=== PATIENT | male | born 1960 | race Caucasian/White ===

== ENCOUNTER 2024-11-15 09:05 | Inpatient (IN) ==
[2024-11-15] MEDS: SODIUM CHLORIDE 0.9% 1,000 ML IV SCH (09:47)
--- NOTE | 2024-11-15 09:51 | XRay Report ---
XR chest 1V portable CLINICAL HISTORY: Sepsis COMPARISON STUDY: None FINDINGS: There is cardiomegaly without pulmonary vascular congestion. Inspiration is shallow which l imits the exam. There is mild stranding in the lung bases. No other consolidation or pleural effusion seen. No pneumothorax. IMPRESSION: Likely mild lung base atelectasis. ACT 112: Negative or not required by law. Electronically signed by: Leonard Lozano M.D. 11/15/2024 9:50 AM
[2024-11-15] MEDS: ACETAMINOPHEN 1,000 MG/100 ML VIAL IV STA (09:55)
[2024-11-15] MEDS: SODIUM CHLORIDE 0.9% 1,000 ML IV ONE (09:55)
[2024-11-15 10:03] LABS: Hematocrit (blood only) 51.0 % (42.0-52.0); Hemoglobin 17.7 g/dl (14.0-18.0); Mean Corpuscular Hemoglobin 28.5 pg (25.0-34.0); Mean Corpuscular Volume 82.3 fL (80.0-100.0); Platelet Count 352 K/uL (130-400); RDW Standard Deviation 37.2 fL (36.4-46.3); Red Blood Count 6.20 M/uL (4.70-6.10); White Blood Count 8.16 K/ul (4.8-10.8)
[2024-11-15 10:09] LABS: Alanine Aminotransferase 83.0 U/L (7-52); Albumin Level 4.1 gm/dl (3.4-5.0); Alkaline Phosphatase 43.0 U/L (34-104); Blood Urea Nitrogen 58.0 mg/dl (6-23); Calcium 9.8 mg/dl (8.6-10.3); Carbon Dioxide 27.0 mmol/L (21-32); Chloride 77.0 mmol/L (98-107); Creatinine Clr Calc Pharmacy 13.9 ml/min; Glucose 201.0 mg/dl (70-99(Fasting)); Potassium 4.0 mmol/L (3.5-5.1)
[2024-11-15 10:14] LABS: Sodium 132.0 mmol/L (136-145)
[2024-11-15 10:15] LABS: Anion Gap 28.0 (3-11); Magnesium 2.1 mg/dl (1.7-2.4)
[2024-11-15 10:21] LABS: INR 1.3 (0.9-1.1); Partial Thromboplastin Time 29 Seconds (21-31); Prothrombin Time 13.5 Seconds (9.0-12.0)
[2024-11-15 10:22] LABS: Bilirubin,Total 2.8 mg/dl (0.2-1.0)
[2024-11-15 10:27] LABS: Total Protein 8.0 gm/dl (6.0-8.3)
[2024-11-15 10:33] LABS: ALC (manual) 2.94 K/uL (1.2-3.4); ANC (manual) 4.90 K/uL (1.4-6.5); Large Granular Lymph # (manua 1.80 K/uL; Large Granular Lymph % (manual) 22 %; Toxic Granulation 1+; Toxic Vacuolation 1+
[2024-11-15] MEDS: CEFEPIME 2000MG 2,000 MG/20 ML SYR IV STA (10:36)
[2024-11-15 10:43] LABS: Base Excess VBG 5.0 mEq/L; HCO3 VBG 30 mmol/L; Oxygen Saturation VBG 73.0 %; PCO2 VBG 44 mmHg (38-50); PO2 VBG 45 mmHg; pH VBG 7.44 (7.36-7.41)
[2024-11-15 10:43] LABS: Chlamydia pneumoniae PCR Not Detected (NotDetected); Coronavirus 229E PCR Not Detected (NotDetected); Coronavirus CoV-2 (COVID19)PCR Not Detected (NotDetected); Coronavirus HKU1 PCR Not Detected (NotDetected); Coronavirus NL63 PCR Not Detected (NotDetected); Coronavirus OC43PCR Not Detected (NotDetected); Human Metapneumovirus PCR Not Detected (NotDetected); Parainfluenza Virus 1 PCR Not Detected (NotDetected); Parainfluenza Virus 2 PCR Not Detected (NotDetected); Parainfluenza Virus 3 PCR Not Detected (NotDetected); Parainfluenza Virus 4 PCR Not Detected (NotDetected); Respiratory Syncytial VirusPCR Not Detected (NotDetected); Rhinovirus/Enterovirus PCR Not Detected (NotDetected)
--- NOTE | 2024-11-15 10:51 | CT Scan Report ---
CT head/brain wo con CLINICAL HISTORY: ams. TECHNIQUE: Multiple axial CT images of the head were obtained without contrast. A dose lowering tech nique was utilized adhering to the principles of ALARA. COMPARISON: None FINDINGS: There is mild motion artifact. No intracranial hemorrhage seen. No mass effect, midline lyn ft, or hydrocephalus. There are mild chronic small vessel ischemic changes. No skull fracture seen. IMPRESSION: No acute findings. ACT 112: Negative or not required by law. The above report was generated using voice recognition software. It may contain grammatical, syntax o r spelling errors. Electronically signed by: Leonard Lozano M.D. 11/15/2024 10:50 AM
--- NOTE | 2024-11-15 10:51 | CT Scan Report ---
ABDOMEN AND PELVIS CT WITHOUT CONTRAST CT DOSE: 2429.67 mGy.cm HISTORY: uti flank pain TECHNIQUE: Multiaxial CT images of the abdomen and pelvis were performed without contrast. A dose lo wering technique was utilized adhering to the principles of ALARA. COMPARISON STUDY: None FINDINGS: There is reticular and patchy opacity in the lower lobes which could represent pneumonia or atelectasis. ABDOMEN: Liver, gallbladder, spleen, pancreas, and adrenal glands have an unremarkable noncontrast ap pearance. Kidneys show no hydronephrosis or calculi. There are mild atherosclerotic calcifications. N o abdominal aortic aneurysm. There is severe distention of the stomach with retained fluid and food. There is distention of the du odenum, and jejunum measuring up to 5 cm diameter. At the transition zone to normal caliber small bow el at the lateral right mid abdomen series 9 Image 256 at the distal jejunum/proximal ileum there is a 2.4 cm intraluminal calcification. Small bowel is decompressed beyond that point. Pelvis: There is no colonic distention. There is sigmoid diverticulosis without evidence of acute div erticulitis. Normal appendix. There is trace scattered free fluid. No free air, or abscess. No enlarg ed adenopathy. Dugan catheter is present and the urinary bladder is nondistended. There is increased density within the urinary bladder suggesting clot. Prostate is enlarged. Osseous structures: There is mild lumbar degenerative disc disease. There are mild degenerative malagon es at the hips. IMPRESSION: 1. Small bowel obstruction caused by an intraluminal calcification at the distal jejunum/proximal ile um. 2. Pneumonia versus atelectasis at the lung bases. 3. Otherwise as described. ACT 112: Negative or not required by law. The above report was generated using voice recognition software. It may contain grammatical, syntax o r spelling errors. Electronically signed by: Leonard Lozano M.D. 11/15/2024 10:50 AM
--- NOTE | 2024-11-15 11:34 | Surgery Consultation ---
Date of Consultation November 15, 2024 Assessment & Plan (1) Small bowel obstruction: Patient is a 64-year-old male with a PMH significant for Autism (mostly nonverbal), undifferentiated schizophrenia, Pica, seizure disorder, and CKD3 who presented to the emergency department with his caregiver who provides patient history. Over the last few days the patient has seemed more confused, not feeling well, dark urine, and has had some abdominal pain and vomiting. Recently seen at urgent care yesterday and was treated for a UTI with antibiotics. Patient continued with symptoms and presented to the emergency department where he was tachycardic, febrile, and found to have worsening kidney function and lactic acidosis and CT findings of a SBO. Although difficult to obtain history/physical from the patient, on exam he does appear to be uncomfortable with palpation throughout his abdomen. His abdomen is firm and significantly distended as well. Discussed case in detail with attending surgeon, Dr. Stewart, and from a surgical standpoint recommend the following: -Given patient's clinical exam, imaging, and lab findings there is concern for possible bowel ischemia. Will plan to take patient emergently to the operating theater for exploratory laparotomy, possible bowel resection, and all other indicated procedures. Will obtain consent from patient's caregiver who is at bedside. -Keep NPO, aggressive IV hydration, and will have ED attempt to place an NGT prior to OR if possible. -Will also order pre-op antibiotics with Zosyn -Further surgical recommendation to follow postoperatively Supervising Physician Co-Signing Physician Notes I independently saw and examined the patient, and I agree with the findings and plan of care. 2 physician consent was obtained due to urgent situation of patient. Risks of procedure include bleeding, infection, injury to surrounding structures, need for further procedures, and cardiopulmonary events that can occur. Alternatives include no surgery, which the housekeeper child care declines. Plan w ill be for surgical intervention. All questions were answered. History of Present Illness Reason for Consultation: SBO History of Present Illness Patient is a 64-year-old male with a PMH significant for Autism (mostly nonverbal), undifferentiated schizophrenia, Pica, seizure disorder, and CKD3 who presented to the emergency department with his caregiver who provides patient history. Patient's housekeeper child care states that over the last few days he has seemed more confused, not feeling well, dark urine, and has had some abdominal pain and vomiting. The caregiver states that his symptoms started roughly 3 days ago, however did seem to imrpove somewhat until his symptoms returned which prompted her to go to urgent care yesterday. He was seen and evaluated yesterday morning and was treated for a UTI. However, overnight the patient continued to have episodes of vomiting and started to run a fever and his caregiver brought him to the emergency room this morning for further evaluation. Upon workup, the patient was tachycardic with HR in the 100s, SBP in the low 100s, temp of 38.1, and requiring supplemental O2. Patient's lab work also concerning for elevated lactic acid level of 10.7 (repeat still elevated at 4.3) and Cr 5.1 (baseline appears to be around 1.0-1.1). The patient's CT revealed an SBO and at that time the surgical team was consulted for further evaluation. The patient was seen and evaluated at bedside this morning. Patient's abdomen is distended, firm, and he does appear uncomfortable. No additional episodes of vomiting since arrival to the ED. Patient's caregiver states that he has no previous abdominal surgeries that she is aware of. He does not take any anticoagulation medications. Allergies Allergy/AdvReac Type Severity Reaction Status Date / Time No Known Allergies Allergy Verified 11/14/24 09:50 Home Medications Medication Instructions Recorded Confirmed Type fenofibrate 160 mg tablet 160 mg PO QAM #90 tabs 04/06/24 11/15/24 Rx diaper,brief,adult,disposable #100 ea 04/17/24 11/14/24 Rx mirtazapine 45 mg tablet 45 mg PO HS #90 tabs 04/29/24 11/15/24 Rx multivitamin-iron 9 mg-folic acid 1 tab PO QAM #90 tabs 04/29/24 11/15/24 Rx 400 mcg-calcium and minerals tablet risperidone 0.25 mg tablet 0.25 mg PO QAM Schizophrenia #90 05/21/24 11/15/24 Rx tabs hydroxyzine pamoate 50 mg capsule 50 mg PO TID #270 caps 05/25/24 11/15/24 Rx risperidone 1 mg tablet (Risperdal) 1 mg PO HS #90 tabs 05/25/24 11/15/24 Rx famotidine 40 mg tablet 40 mg PO QAM GERD #90 tabs 06/15/24 11/15/24 Rx sertraline 50 mg tablet 50 mg PO QAM #90 tabs 06/16/24 11/15/24 Rx phenytoin sodium extended 100 mg 200 mg (2 x 100 mg) PO BID 06/25/24 11/15/24 Rx capsule EPILEPSY #360 caps propranolol 20 mg tablet 20 mg PO TID Epilepsy #270 tabs 09/08/24 11/15/24 Rx clonazepam 1 mg tablet 1 mg PO QID #112 tabs 10/16/24 11/15/24 Rx levothyroxine 50 mcg tablet 50 mcg PO QAM Hypothyroid #90 tabs 10/16/24 11/15/24 Rx (Synthroid) cholecalciferol (vitamin D3) 50 50 mcg PO DAILY #90 caps 10/29/24 11/15/24 Rx mcg (2,000 unit) capsule cephalexin 500 mg capsule 500 mg PO TID 7 days #21 caps 11/14/24 11/15/24 Rx Patient History Medical History Undifferentiated schizophrenia Autism per caregiver "he is mostly non-verbal, except for simple words and phrases" History of rubella remote hx Gastritis hx History of pica Surgical History History of cataract surgery right Hx of tooth extraction Family History Denies family history of Ovarian cancer Prostate cancer Myocardial infarction Breast cancer Colorectal cancer Social History Smoking Status: Never smoker Second Hand Exposure: No; Do You Dip or Chew Tobacco: No; Hx Alcohol Use: No Hx Substance Use: No Preferred Language: Icelandic Communication Ability: Effective Communication Ability Comment: pt is "mostly non-verbal except for simple words and phrases" Drivers' Cash Clerk Required: No Beliefs That Will Affect Care: None Current Living Situation: Other Current Living Situation Comment: lives with caregiver current occupational status: disabled Feels Safe at Home: Yes Childhood Exposure to Second-Hand Smoke: No Diet: regular caffeine: Yes Dental Care, Regularly: Yes Physical Activity Frequency: Daily Physical Activity Frequency Comment: Walking Seatbelt Use: always Sunscreen Use: Yes Assistive Devices: None Review of Systems Review of Systems: All systems reviewed & are unremarkable except as noted in HPI & below Physical Exam Constitutional: + ill appearing and + diaphoretic; no ac [place] distress Pt with Autism and mostly nonverbal Respiratory: normal respiratory effort; no respiratory distress Requiring supplemental O2 via oxymask, good saturations. Cardiovascular: Rate/Rhythm: + tachycardic Gastrointestinal (Abdomen): Abdomen distended, firm, and patient appears to be tender with palpation throughout all 4 quadrants. Skin: no rashes, warm and dry Results & Data Vital Signs (Past 12 Hours) Vital Signs Temp Pulse Pulse Resp BP BP Pulse Ox 11/15/24 11:15 38.2 C H 99 H 37 H 92 11/15/24 11:15 113/86 11/15/24 11:03 38.3 C H 100 H 33 H 94 11/15/24 11:00 104/83 11/15/24 11:00 104/83 11/15/24 11:00 104/83 11/15/24 10:57 38.3 C H 102 H 39 H 92 11/15/24 10:54 38.3 C H 103 H 37 H 92 11/15/24 10:45 98/77 L 11/15/24 10:40 38.3 C H 106 H 38 H 107/81 94 11/15/24 10:31 95 11/15/24 10:27 38.2 C H 104 H 39 H 89 L 11/15/24 10:25 109/81 11/15/24 10:25 109/81 11/15/24 10:16 92 11/15/24 10:12 37.8 C H 108 H 36 H 90 11/15/24 10:11 109 H 11/15/24 09:50 106/85 11/15/24 09:48 114 H 43 H 91 11/15/24 09:45 110/88 11/15/24 09:37 82 L 11/15/24 09:27 123 H 34 H 117/85 11/15/24 09:25 38.6 C H 125 H 45 H 117/85 82 L 11/15/24 09:11 24 O2 Del Method O2 Flow Rate 11/15/24 11:15 Oxymask 11/15/24 11:15 11/15/24 11:03 Oxymask 11/15/24 11:00 11/15/24 11:00 11/15/24 11:00 11/15/24 10:57 11/15/24 10:54 11/15/24 10:45 11/15/24 10:40 Oxymask 12 11/15/24 10:31 Oxymask 12 11/15/24 10:27 11 11/15/24 10:25 11/15/24 10:25 11/15/24 10:16 Oxymask 11 11/15/24 10:12 Oxymask 11 11/15/24 10:11 11/15/24 09:50 11/15/24 09:48 Oxymask 10 11/15/24 09:45 11/15/24 09:37 Oxymask 11/15/24 09:27 Room Air 11/15/24 09:25 Room Air 11/15/24 09:11 Diagnostic Findings ABDOMEN AND PELVIS CT WITHOUT CONTRAST CT DOSE: 2429.67 mGy.cm HISTORY: uti flank pain TECHNIQUE: Multiaxial CT images of the abdomen and pelvis were performed without contrast. A dose lowering technique was utilized adhering to the principles of ALARA. COMPARISON STUDY: None FINDINGS: There is reticular and patchy opacity in the lower lobes which could represent pneumonia or atelectasis. ABDOMEN: Liver, gallbladder, spleen, pancreas, and adrenal glands have an unremarkable noncontrast appearance. Kidneys show no hydronephrosis or calculi. There are mild atherosclerotic calcifications. No abdominal aortic aneurysm. There is severe distention of the stomach with retained fluid and food. There is distention of the duodenum, and jejunum measuring up to 5 cm diameter. At the transition zone to normal caliber small bowel at the lateral right mid abdomen series 9 Image 256 at the distal jejunum/proximal ileum there is a 2.4 cm intraluminal calcification. Small bowel is decompressed beyond that point. Pelvis: There is no colonic distention. There is sigmoid diverticulosis without evidence of acute diverticulitis. Normal appendix. There is trace scattered free fluid. No free air, or abscess. No enlarged adenopathy. Dugan catheter is presen t and the urinary bladder is nondistended. There is increased density within the urinary bladder suggesting clot. Prostate is enlarged. Osseous structures: There is mild lumbar degenerative disc disease. There are mild degenerative changes at the hips. IMPRESSION: 1. Small bowel obstruction caused by an intraluminal calcification at the distal jejunum/proximal ileum. 2. Pneumonia versus atelectasis at the lung bases. 3. Otherwise as described. PG Care Time/CCT Total # of Minutes Spent Total Time Spent with Patient: Total time spent is greater than 50% in coordination of care (as documented) at patient's floor/unit and/or counseling patient: [place] [address] INT INP/OBS CARE 1/40MIN Patient Type New Medical Decision Making Straight Forward Diagnoses Small bowel obstruction K56.609
--- NOTE | 2024-11-15 12:35 | Anesthesiology Consultation ---
Date of Service November 15, 2024 Assessment & Plan Chart Review Chart Review: Acceptable Risk for Surgery and Patient NOT seen in Pre Admission Testing Consults Requested none ASA [id number] Proposed Anesthesia Anesthesia Type: General Anesthesia Line Insertion: Arterial line History Surgery Operation Date: 11/15/24 12:45 Proposed Procedures p Exploratory Laparotomy - Wesley Stewart MD Height/Weight Height: 5 ft 5 in Weight: 76.4 kg Allergies Allergy/AdvReac Type Severity Reaction Status Date / Time No Known Allergies Allergy Verified 11/14/24 09:50 Medications Home Medications Medication Instructions Recorded Confirmed Last Taken fenofibrate 160 mg tablet 160 mg PO QAM #90 tabs 04/06/24 11/15/24 Unknown diaper,brief,adult,disposable #100 ea 04/17/24 11/14/24 Unknown mirtazapine 45 mg tablet 45 mg PO HS #90 tabs 04/29/24 11/15/24 Unknown multivitamin-iron 9 mg-folic acid 1 tab PO QAM #90 tabs 04/29/24 11/15/24 Unknown 400 mcg-calcium and minerals tablet risperidone 0.25 mg tablet 0.25 mg PO QAM Schizophrenia #90 05/21/24 11/15/24 Unknown tabs hydroxyzine pamoate 50 mg capsule 50 mg PO TID #270 caps 05/25/24 11/15/24 Unknown risperidone 1 mg tablet (Risperdal) 1 mg PO HS #90 tabs 05/25/24 11/15/24 Unknown famotidine 40 mg tablet 40 mg PO QAM GERD #90 tabs 06/15/24 11/15/24 Unknown sertraline 50 mg tablet 50 mg PO QAM #90 tabs 06/16/24 11/15/24 Unknown phenytoin sodium extended 100 mg 200 mg (2 x 100 mg) PO BID 06/25/24 11/15/24 Unknown capsule EPILEPSY #360 caps propranolol 20 mg tablet 20 mg PO TID Epilepsy #270 tabs 09/08/24 11/15/24 Unknown clonazepam 1 mg tablet 1 mg PO QID #112 tabs 10/16/24 11/15/24 Unknown levothyroxine 50 mcg tablet 50 mcg PO QAM Hypothyroid #90 tabs 10/16/24 11/15/24 Unknown (Synthroid) cholecalciferol (vitamin D3) 50 50 mcg PO DAILY #90 caps 10/29/24 11/15/24 Unknown mcg (2,000 unit) capsule cephalexin 500 mg capsule 500 mg PO TID 7 days #21 caps 11/14/24 11/15/24 Unknown Past Medical History Medical History Undifferentiated schizophrenia Autism per caregiver "he is mostly non-verbal, except for simple words and phrases" History of rubella remote hx Gastritis hx History of pica SBO Volume depleted electrolyte disturbance Hx/o seizures ROQUE on CKD Hypochloremia Exercise / Class Metabolic Activity III < 4 Walking/Shop/Light housework Past Family History Family History Denies family history of Ovarian cancer Prostate cancer Myocardial infarction Breast cancer Colorectal cancer Past Surgical History Surgical History History of cataract surgery right Hx of tooth extraction Past Anesthesia History No Hx of Anesthesia Complications and No Family Hx of Anesthesia Complications History of PONV No Hx of PONV and No Hx of Motion Sickness Social History Smoking Status: Never smoker Do You Dip or Chew Tobacco: No Hx Alcohol Use: No Hx Substance Use: No substance use type: does not use Physical Exam Vital Signs Last Vital Signs Temp 38.1 C H 11/15/24 12:12 Pulse 103 H 11/15/24 12:12 Resp 33 H 11/15/24 12:12 BP 103/83 11/15/24 12:15 Pulse Ox 91 11/15/24 12:09 O2 Del Method Oxymask 11/15/24 12:09 O2 Flow Rate 10 11/15/24 12:09 Testing Laboratory Results 11/15/24 09:32 11/15/24 09:32 PT 13.5 Seconds (9.0-12.0) H 11/15/24 09:32 INR 1.3 (0.9-1.1) H 11/15/24 09:32 APTT 29 Seconds (21-31) 11/15/24 09:32 11/15/24 09:39 POC Glucose (other) 199 H Chest X-Ray Date: 11/15/24 Findings: + atelectasis and + cardiomegaly
--- NOTE | 2024-11-15 12:39 | XRay Report ---
KUB HISTORY: ng placement COMPARISON STUDY: CT earlier today FINDINGS: Nasogastric tube tip is in the distal body of the stomach. There is stable severe gastric a nd upper abdominal small bowel distention. IMPRESSION: Nasogastric tube tip is in the distal body of the stomach. ACT 112: Negative or not required by law. The above report was generated using voice recognition software. It may contain grammatical, syntax o r spelling errors. Electronically signed by: Leonard Lozano M.D. 11/15/2024 12:38 PM
[2024-11-15] MEDS ORDERED: ETOMIDATE 2 MG/ML 20 ML VIAL IV ONE (12:58)
[2024-11-15] MEDS ORDERED: MIDAZOLAM HCL 1 MG/ML 2ML VIAL ONE (12:59)
[2024-11-15] MEDS ORDERED: CISATRACURIUM BESYLATE IV SOLN 2 MG/ML 10 ML VIAL IV ONE (12:59)
--- NOTE | 2024-11-15 13:17 | History & Physical Bridge Note ---
Date of Service November 15, 2024 History & Physical Bridge Note I have examined the patient, reviewed the History & Physical and in the interval since the performance of the History & Physical I have noted the following changes of clinical significance: no changes noted Supervising Physician Co-Signing Physician Notes I independently saw and examined the patient, and I agree with the findings and plan of care. 2 physician consent was obtained due to urgent situation of patient. Risks of procedure include bleeding, infection, injury to surrounding structures, need for further procedures, and cardiopulmonary events that can oc cur. Alternatives include no surgery, which the respiratory care faculty declines. Plan will be for surgical intervention. All questions were answered.
[2024-11-15] MEDS ORDERED: PHENYLEPHRINE HCL 10 MG/ML VIAL ONE (13:26)
[2024-11-15] MEDS ORDERED: NOREPINEPHRINE BITARTRATE 1 MG/ML 4 ML VIAL IV ONE (13:26)
--- NOTE | 2024-11-15 13:49 | History & Physical Report ---
Date of Service November 15, 2024 Assessment & Plan (1) Small bowel obstruction: (2) Urinary symptom or sign: (3) Sepsis: (4) Hypoxia: (5) ROQUE (acute kidney injury): (6) Elevated troponin: (7) Elevated LFTs: (8) Seizures: Plan Pt is a 64 yo male with with PMH of autism, schizophrenia, seizure disorder, hypothyroidism, HLD, GERD and CKD who presented to ED with persistent vomiting in setting of fever, tachycardia, hypoxia, elevated lactate and procal and significantly distended abdomen. CT abdomen was consistent with SBO. Chest XR favors atelectasis due to abdominal distension. Pt received 2L NSS and given supplemental O2 via oxymask. BPs have been stable, Surgery consult with concern for bowel ischemia and took pt for emergent exploratory surgery. Pt remained intubated follow surgery was was admitted to ICU. #SBO/foreign obstruction Significantly enlarged stomach and duodenum noted in CT with calcification noted at distal duodenum. Pt underwent emergent exploratory surgery. Surgery recs: Remain NPO Continue NGT to suction Continue IV Zosyn Ordered repeat lactic acid #UTI/other infection/fever Elevated lactate 10.4 -> 4.3. Blood cultures taken. S/p IVF and dose of IV cefepime in ED. Switched to Zosyn per general surgery. - Continue IV Zosyn - Ordered MRSA nares - Continued IVF - Follow blood cx #Hypoxia Imaging suggests atelectasis vs pneumonia. No supplemental O2 used at home. Using Oxymask at 10L to maintain sats>90%. Intubated and on vent s/p surgery. - ICU to manage vent settings #ROQUE in setting CKD Baseline Cr is 1.2. Presenting with likely pre-renal ROQUE due to severe dehydration and volume depletion from SBO. Potassium is currently stable. Lactate is improving from 10.7->4.3. - Continue IVF at maintenance plus - Monitor kidney function with CMP If become hyperkalemic or acidotic, will consider as needed dialysis #Elevated troponin 65--> 99.8. Likely demand ischemia - Continue to trend troponin q6h until plateau - Order echo to rule out cardiac dysfunction #Elevated LFTs/INR Likely caused from ischemia secondary to severe dehydration and volume depletion/decreased nutrition - Monitor with CMP, INR - Consider Vit K supplementation if INR does not resolve in 24-48 hours #Hx of seizures Taking oral meds for seizure control at home. While NPO will convert to IV antiseizure meds - Start IV phenytoin 100mg QID Chronic conditions: Hypothyroidism- hold levothyroxine until able to take po meds GERD- IV pantoprazole 40mg qd Mood disorder- Hold sertraline, mirtazapine, and risperidone while NPO. Consider Ativan 1mg IV as needed for agitation Dispo: ICU Diet:NPO DVT prophylaxis: Lovenox Code: Full History of Present Illness Chief Complaint: Intractable vomiting, fever Primary Care Provider: Katherine Walls MD Pt is a 64 yo male with with PMH of autism, schizophrenia, seizure disorder, hypothyroidism, HLD, GERD and CKD who presented to ED to 4 day history of vomiting presents with his caregiver, Kai. Pt is relatively nonverbal, and history is obtained from caregiver. She reports pt started with vomiting on 11/12. Pt continued to eat as normal, however, caregivers tried to adjust his diet to be more of a BRAT diet. Pt continued with green emesis and started to notes dark urine and increased abdominal discomfort. He was taken to urgent care and found to have a UTI. Pt was started on oral antibiotics and caregivers were instructed to watch out for fever. Pt started with diaphoresis and shaking this morning. Attempted to take pt's temperature, but it did not register as fever. Caregiver decided to bring pt to ED. Pt takes himself to bathroom for bowel movements, but does not perform toileting hygiene very well. He uses adult briefs, which reportedly had BM stain yesterday. Unknown if patient has had BM since then. Caregiver denies signs of bloody stool or rich rectal bleeding. Caregiver denies recent cough, congestion, SOB, diarrhea, open wounds, or rashes. No known allergies. Allergies Allergy/AdvReac Type Severity Reaction Status Date / Time No Known Allergies Allergy Verified 11/14/24 09:50 Home Medications Medication Instructions Recorded Confirmed Type fenofibrate 160 mg tablet 160 mg PO QAM #90 tabs 04/06/24 11/15/24 Rx diaper,brief,adult,disposable #100 ea 04/17/24 11/14/24 Rx mirtazapine 45 mg tablet 45 mg PO HS #90 tabs 04/29/24 11/15/24 Rx multivitamin-iron 9 mg-folic acid 1 tab PO QAM #90 tabs 04/29/24 11/15/24 Rx 400 mcg-calcium and minerals tablet risperidone 0.25 mg tablet 0.25 mg PO QAM Schizophrenia #90 05/21/24 11/15/24 Rx tabs hydroxyzine pamoate 50 mg capsule 50 mg PO TID #270 caps 05/25/24 11/15/24 Rx risperidone 1 mg tablet (Risperdal) 1 mg PO HS #90 tabs 05/25/24 11/15/24 Rx famotidine 40 mg tablet 40 mg PO QAM GERD #90 tabs 06/15/24 11/15/24 Rx sertraline 50 mg tablet 50 mg PO QAM #90 tabs 06/16/24 11/15/24 Rx phenytoin sodium extended 100 mg 200 mg (2 x 100 mg) PO BID 06/25/24 11/15/24 Rx capsule EPILEPSY #360 caps propranolol 20 mg tablet 20 mg PO TID Epilepsy #270 tabs 09/08/24 11/15/24 Rx clonazepam 1 mg tablet 1 mg PO QID #112 tabs 10/16/24 11/15/24 Rx levothyroxine 50 mcg tablet 50 mcg PO QAM Hypothyroid #90 tabs 10/16/24 11/15/24 Rx (Synthroid) cholecalciferol (vitamin D3) 50 50 mcg PO DAILY #90 caps 10/29/24 11/15/24 Rx mcg (2,000 unit) capsule cephalexin 500 mg capsule 500 mg PO TID 7 days #21 caps 11/14/24 11/15/24 Rx Past Med/Surg History Problem List (Updated 11/15/24 @ 14:32 by Juliane Matias DO) Seizures Elevated LFTs Elevated troponin ROQUE (acute kidney injury) Hypoxia Sepsis Small bowel obstruction Urinary symptom or sign Tick bite of right elbow Eye abnormality Encounter for immunization Complicated grieving Encounter for pre-operative examination Seizure disorder Routine health maintenance Abnormal thyroid function test Intellectual disability Diverticulosis Mood disorder NEENA (generalized anxiety disorder) (Chronic) Chronic kidney disease (Chronic) Stage 3 Hyperlipidemia (Chronic) Echolalia Undifferentiated schizophrenia (Chronic) Autism (Chronic) Hypothyroidism (acquired) Seizure last seizure over 1 year ago "more mild only last for a few seconds"; currently on phenytoin GERD (gastroesophageal reflux disease) (Chronic) Medical History Undifferentiated schizophrenia Autism per caregiver "he is mostly non-verbal, except for simple words and phrases" History of rubella remote hx Gastritis hx History of pica Surgical History History of cataract surgery right Hx of tooth extraction Family History Denies family history of Ovarian cancer Prostate cancer Myocardial infarction Breast cancer Colorectal cancer Social History Smoking Status: Unknown if ever smoked Second Hand Exposure: No; Do You Dip or Chew Tobacco: No; Hx Alcohol Use: No (unknown) Hx Substance Use: No (unknown) Preferred Language: Turkmen Communication Ability: Effective Communication Ability Comment: Pt sedated/intubated Hotel And Dining Room Cashier Required: No Beliefs That Will Affect Care: None Current Living Situation: Other Current Living Situation Comment: [facility] current occupational status: disabled Feels Safe at Home: Yes Childhood Exposure to Second-Hand Smoke: No Diet: regular caffeine: Yes Dental Care, Regularly: Yes Physical Activity Frequency: Daily Physical Activity Frequency Comment: Walking Seatbelt Use: always Sunscreen Use: Yes Assistive Devices: None Review of Systems Review of Systems: As per HPI Physical Exam Physical Exam: Gen: Laying in david, appears in discomfort, but does not verbalize pain HENT: Normocephalic, atraumatic. External ear without deformities. Trachea midline, no thyromegaly Cardio: RRR, tachycardiac, no murmurs or clicks. Resp: Oxymask at 10L, CTAB, tachypnea, Equal bilateral chest rise. GI: Distended, firm, tender, unable to note bowel sounds MSK: Moving all 4 extremities independently Skin: Dry, of normal skin tone, 1-2 cm scab noted at right anterior knee Neuro: Alert and oriented to self. Pt with mild groaning with palpation over abdomen. Results & Data Results & Data Vital Signs (Past 12 Hours) Vital Signs Temp Pulse Pulse Resp BP BP Pulse Ox 11/15/24 12:30 110/80 11/15/24 12:30 38.2 C H 109 H 39 H 90 11/15/24 12:15 103/83 11/15/24 12:15 103/83 11/15/24 12:12 38.1 C H 103 H 33 H 11/15/24 12:09 38.1 C H 104 H 41 H 91 11/15/24 12:00 111/88 11/15/24 11:57 38.1 C H 103 H 40 H 91 11/15/24 11:45 108/84 11/15/24 11:45 38.1 C H 102 H 39 H 92 11/15/24 11:33 38.1 C H 100 H 37 H 91 11/15/24 11:30 106/85 11/15/24 11:21 38.1 C H 97 H 37 H 91 11/15/24 11:15 38.2 C H 99 H 37 H 92 11/15/24 11:15 113/86 11/15/24 11:03 38.3 C H 100 H 33 H 94 11/15/24 11:00 104/83 11/15/24 11:00 104/83 11/15/24 11:00 104/83 11/15/24 10:57 38.3 C H 102 H 39 H 92 11/15/24 10:54 38.3 C H 103 H 37 H 92 11/15/24 10:45 98/77 L 11/15/24 10:40 38.3 C H 106 H 38 H 107/81 94 11/15/24 10:31 95 11/15/24 10:27 38.2 C H 104 H 39 H 89 L 11/15/24 10:25 109/81 11/15/24 10:25 109/81 11/15/24 10:16 92 11/15/24 10:12 37.8 C H 108 H 36 H 90 11/15/24 10:11 109 H 11/15/24 09:50 106/85 11/15/24 09:48 114 H 43 H 91 11/15/24 09:45 110/88 11/15/24 09:37 82 L 11/15/24 09:27 123 H 34 H 117/85 11/15/24 09:25 38.6 C H 125 H 45 H 117/85 82 L 11/15/24 09:11 24 O2 Del Method O2 Flow Rate 11/15/24 12:30 11/15/24 12:30 Oxymask 10 11/15/24 12:15 11/15/24 12:15 11/15/24 12:12 11/15/24 12:09 Oxymask 10 11/15/24 12:00 11/15/24 11:57 11/15/24 11:45 11/15/24 11:45 11/15/24 11:33 Oxymask 10 11/15/24 11:30 11/15/24 11:21 Oxymask 12 11/15/24 11:15 Oxymask 11/15/24 11:15 11/15/24 11:03 Oxymask 11/15/24 11:00 11/15/24 11:00 11/15/24 11:00 11/15/24 10:57 11/15/24 10:54 11/15/24 10:45 11/15/24 10:40 Oxymask 12 11/15/24 10:31 Oxymask 12 11/15/24 10:27 11 11/15/24 10:25 11/15/24 10:25 11/15/24 10:16 Oxymask 11 11/15/24 10:12 Oxymask 11 11/15/24 10:11 11/15/24 09:50 11/15/24 09:48 Oxymask 10 11/15/24 09:45 11/15/24 09:37 Oxymask 11/15/24 09:27 Room Air 11/15/24 09:25 Room Air 11/15/24 09:11 Laboratory Results Abnormal lab results 11/15/24 11/15/24 11/15/24 Range/Units 09:32 09:39 10:36 RBC 6.20 H (4.70-6.10) M/uL POC Hct 53 H (42-52) % Lymphocytes # (Manual) 1.14 L (1.2-3.4) K/uL Monocytes # (Manual) 0.08 L (0.11-0.59) K/uL Metamyelocytes # (Man) 0.24 H (0-0) K/uL PT 13.5 H (9.0-12.0) Seconds INR 1.3 H (0.9-1.1) VBG pH 7.44 H (7.36-7.41) POC Sodium 130 L (135-144) mmol/L Sodium 132 L (136-145) mmol/L POC Potassium 3.2 L (3.3-5.0) mmol/L POC Chloride 86 L (101-112) mmol/L Chloride 77 L (98-107) mmol/L Anion Gap 28 H (3-11) POC BUN 58 H (7-18) mg/dl BUN 58 H (6-23) mg/dl Creatinine 5.18 H* (0.6-1.4) mg/dl POC Creatinine 5.4 H* (0.6-1.3) mg/dl Glucose 201 H (70-99(Fasting)) mg/dl POC Glucose (other) 199 H (70-99) mg/dl Lactate 10.7 H* (0.4-2.0) mmol/L POC Ioniz Calcium Marissa 0.91 L (1.12-1.32) mmol/l Total Bilirubin 2.8 H (0.2-1.0) mg/dl Direct Bilirubin 1.6 H (0-0.2) mg/dl AST 94 H (13-39) U/L ALT 83 H (7-52) U/L Troponin I High Sens 65.0 H* (0-20) pg/ml Procalcitonin 15.40 H (0-0.5) ng/ml 11/15/24 Range/Units 11:35 RBC (4.70-6.10) M/uL POC Hct (42-52) % Lymphocytes # (Manual) (1.2-3.4) K/uL Monocytes # (Manual) (0.11-0.59) K/uL Metamyelocytes # (Man) (0-0) K/uL PT (9.0-12.0) Seconds INR (0.9-1.1) VBG pH (7.36-7.41) POC Sodium (135-144) mmol/L Sodium (136-145) mmol/L POC Potassium (3.3-5.0) mmol/L POC Chloride (101-112) mmol/L Chloride (98-107) mmol/L Anion Gap (3-11) POC BUN (7-18) mg/dl BUN (6-23) mg/dl Creatinine (0.6-1.4) mg/dl POC Creatinine (0.6-1.3) mg/dl Glucose (70-99(Fasting)) mg/dl POC Glucose (other) (70-99) mg/dl Lactate 4.3 H* (0.4-2.0) mmol/L POC Ioniz Calcium Marissa (1.12-1.32) mmol/l Total Bilirubin (0.2-1.0) mg/dl Direct Bilirubin (0-0.2) mg/dl AST (13-39) U/L ALT (7-52) U/L Troponin I High Sens 99.8 H* D (0-20) pg/ml Procalcitonin (0-0.5) ng/ml Diagnostic Findings Chest X-Ray 11/15/24 09:35 XR chest 1V portable CLINICAL HISTORY: Sepsis COMPARISON STUDY: None FINDINGS: There is cardiomegaly without pulmonary vascular congestion. Inspiration is shallow which limits the exam. There is mild stranding in the lung bases. No other consolidation or pleural effusion seen. No pneumothorax. IMPRESSION: Likely mild lung base atelectasis. ACT 112: Negative or not required by law. Electronically signed by: Leonard Lozano M.D. 11/15/2024 9:50 AM Abdomen/Pelvis CT 11/15/24 09:[address] WITHOUT CONTRAST CT DOSE: 2429.67 mGy.cm HISTORY: uti flank pain TECHNIQUE: Multiaxial CT images of the abdomen and pelvis were performed without contrast. A dose lowering technique was utilized adhering to the principles of ALARA. COMPARISON STUDY: None FINDINGS: There is reticular and patchy opacity in the lower lobes which could represent pneumonia or atelectasis. ABDOMEN: Liver, gallbladder, spleen, pancreas, and adrenal glands have an unremarkable noncontrast appearance. Kidneys show no hydronephrosis or calculi. There are mild atherosclerotic calcifications. No abdominal aortic aneurysm. There is severe distention of the stomach with retained fluid and food. There is distention of the duodenum, and jejunum measuring up to 5 cm diameter. At the transition zone to normal caliber small bowel at the lateral right mid abdomen series 9 Image 256 at the distal jejunum/proximal ileum there is a 2.4 cm intraluminal calcification. Small bowel is decompressed beyond that point. Pelvis: There is no colonic distention. There is sigmoid diverticulosis without evidence of acute diverticulitis. Normal appendix. There is trace scattered free fluid. No free air, or abscess. No enlarged adenopathy. Dugan catheter is present and the urinary bladder is nondistended. There is increased density within the urinary bladder suggesting clot. Prostate is enlarged. Osseous structures: There is mild lumbar degenerative disc disease. There are mild degenerative changes at the hips. IMPRESSION: 1. Small bowel obstruction caused by an intraluminal calcification at the distal jejunum/proximal ileum. 2. Pneumonia versus atelectasis at the lung bases. 3. Otherwise as described. ACT 112: Negative or not required by law. The above report was generated using voice recognition software. It may contain grammatical, syntax or spelling errors. Electronically signed by: Leonard Lozano M.D. 11/15/2024 10:[address] 11/15/24 09:36 CT head/brain wo con CLINICAL HISTORY: ams. TECHNIQUE: Multiple axial CT images of the head were obtained without contrast. A dose lowering technique was utilized adhering to the principles of ALARA. COMPARISON: None FINDINGS: There is mild motion artifact. No intracranial hemorrhage seen. No mass effect, midline shift, or hydrocephalus. There are mild chronic small vessel ischemic changes. No skull fracture seen. IMPRESSION: No acute findings. ACT 112: Negative or not required by law. The above report was generated using voice recognition software. It may contain grammatical, syntax or spelling errors. Electronically signed by: Leonard Lozano M.D. 11/15/2024 10:50 AM KUB X-Ray 11/15/24 12:18 KUB HISTORY: ng placement COMPARISON STUDY: CT earlier today FINDINGS: Nasogastric tube tip is in the distal body of the stomach. There is stable severe gastric and upper abdominal small bowel distention. IMPRESSION: Nasogastric tube tip is in the distal body of the stomach. ACT 112: Negative or not required by law. The above report was generated using voice recognition software. It may contain grammatical, syntax or spelling errors. Electronically signed by: Leonard Lozano M.D. 11/15/2024 12:38 PM Supervising Physician Co-Signing Physician Notes I personally examined the patient and verified all [place] points of history and exam, discussed case, and agree with decision making with Dr Matias no HPI or ROS obtainable surgery input appreciated vitals noted intubated sedated in icu post op no distress, no pallor or icterus. vitals stable. labs and diagnostics noted SBO - rubber ball removed. continue post op care sepsis - likely from above, follow for other pathologies, continue broad abx, follow cx, serial exams. otherwise as above. Appreciate surgery and ICU input. Resident Activity Tracking Resident Involvement: Resident Care Provided Care Provided: Adult [facility]
[2024-11-15] MEDS: 4.5GM X1 IV STA (14:08)
[2024-11-15] MEDS ORDERED: DEXAMETHASONE SOD INJ 4 MG/ML VIAL ONE (14:35)
[2024-11-15] MEDS ORDERED: diphenhydrAMINE 50 MG/ML VIAL ONE (14:35)
[2024-11-15] MEDS: BUPIVACAINE 0.5 % 5 MG/1 ML MPF 30ML VIAL ONE (15:12)
[2024-11-15] MEDS: LIDOCAINE 1%/EPINEPHRINE 1:100,000 50 ML VIAL ONE ×2 (15:13→15:14)
--- NOTE | 2024-11-15 15:36 | Post Operative Brief Note ---
PG Immediate Post Op with CF Date of Surgery November 15, 2024 Pre & Post Diagnosis Operation Date: 11/15/24 12:45 Pre-Op Diagnosis: small bowel obstruction Post-Op Diagnosis: small bowel obstruction due to foreign body I identified the patient and participated in the time-out.: Yes Procedure Operation Date: 11/15/24 12:45 Actual Procedures p Exploratory Laparotomy, small bowel resection and anastamosis(Not Applicable) - Wesley Stewart MD Surgeon Wesley Stewart MD Hoisting Laborer Bernadette VARELAC Estimated Blood Loss 20 Findings Consistent with Post-Op Diagnosis Small bowel obstruction with hyperemic and edematous proximal small bowel, source of small bowel appeared to be foreign body ingestion, possibly a bouncy ball Specimens Specimen Description: A. Small bowel foreign body Drains Dugan Catheter Complications None Disposition Disposition: Surgical ICU
[2024-11-15] MEDS ORDERED: STAT IV Infusion **Titration per Protocol STA ×2 (15:59→16:01)
[2024-11-15] MEDS: fentaNYL citrate 2,500 MCG/250 ML BAG IV SCH (16:19)
[2024-11-15] MEDS: PROPOFOL BOLUS FROM BAG IV PRN (16:19)
--- NOTE | 2024-11-15 16:20 | Operative Report ---
PG Post Operative Report Pre & Post Diagnosis Operation Date: 11/15/24 12:45 Pre-Op Diagnosis: small bowel obstruction Post-Op Diagnosis: small bowel obstruction due to foreign body, appeared to be a bouncy ball in the mid ileum I identified the patient and participated in the time-out.: Yes Procedure Operation Date: 11/15/24 12:45 Actual Procedures p Exploratory Laparotomy, small bowel resection and anastamosis(Not Applicable) - Wesley Stewart MD Surgeon Wesley Stewart MD Chemical Engineer Bernadette Weathers PA-C Estimated Blood Loss 20 Findings Consistent with Post-Op Diagnosis Small bowel obstruction with hyperemic and distended small bowel but without evidence of necrosis, obstruction appears to be due to obstructing foreign body that appeared to be a bouncy ball Fluids 1200ml Specimens Small bowel with foreign body Drains None Anesthesia Type General Complications None Disposition Disposition: Surgical ICU Indications This is a 64-year-old male with mental delay with a caregiver who over the past few days has had nausea and vomiting and worsening abdominal pain. Workup revealed small bowel obstruction, likely due to foreign body. Patient was tachycardic with lactic acidosis and distention on exam. Due to concern for possible bowel ischemia, decision was made for exploratory laparotomy and all other indicated procedures. Risks of procedure were discussed with the patient's caregiver and they include bleeding, infection, injury to surrounding structures, need for further procedures, anastomotic leak, wound issues to include wound dehiscence, infection, and hernia, and cardiopulmonary events that can occur. Alternatives include no surgery, which the patient's caregiver declines. The patient's caregiver wishes for patient to proceed with procedure. All questions were answered. Description of Procedure Informed consent was verified and site of surgery was verified and the patient was brought to the operating room. General anesthesia was administered. The patient was in the supine position with arms out. A Dugan catheter was already in place. The patient's abdomen was prepped and draped in the usual sterile fashion. A surgical timeout was performed and there are no issues. Next, a midline incision was made and dissection was carried out and the abdominal cavity was entered. There appeared to be slightly murky fluid in the abdomen and very distended small bowel. The small bowel did appear to be hyperemic and inflamed and very dilated but not ischemic. It was ran from the ileocecal valve to the ligament of Treitz and in the mid ileum, there appeared to be a ball that was likely the source of obstruction. The bowel was gently moved to an area of nondistended, healthy appearing small bowel and then was removed via resection, this approach was used because it appeared that because the bowel was so large the, that if an enterotomy was made it would have to be quite big to remove the foreign body and closing this would possibly lead to stricture especially in the setting of obstruction. The resection was performed by creating windows in the mesentery and using the 60 mm SHAYNA stapler to transect the bowel and the LigaSure device to divide the mesentery. The specimen was removed off the field and the specimen was opened and the foreign body appeared to be a hard rubber ball, likely a bouncy ball. Next, the abdomen was irrigated and suctioned and a [id number] functional end and anastomosis was created by opening the antimesenteric ends of the small bowel and using the 80 mm SHAYNA stapler to create the anastomosis. The common enterotomy was closed using the 60 mm SHAYNA stapler. The staple line was reinforced with 3-0 Vicryl suture which was also used to take tension off the staple line. The mesenteric defect was closed using 3-0 Vicryl suture. Next, the fascia of the midline incision was closed using #1 looped PDS and the skin was closed using jimy. The patient was transferred to the ICU in guarded condition for additional fluid resuscitation. He remained intubated. He tolerated the procedure well. I attest to the content of the Intraoperative Record and any orders documented therein. Any exceptions are noted below.
--- NOTE | 2024-11-15 16:23 | Anesthesiology Progress Note ---
Date of Service November 15, 2024 Anesthesia Post Procedure Vital Signs Vital Signs: Temp Pulse Pulse Resp BP BP Pulse Ox 11/15/24 15:53 84 16 96 11/15/24 15:51 80 16 96 11/15/24 15:50 112/86 11/15/24 12:30 110/80 11/15/24 12:30 38.2 C H 109 H 39 H 90 11/15/24 12:15 103/83 11/15/24 12:15 103/83 11/15/24 12:12 38.1 C H 103 H 33 H 11/15/24 12:09 38.1 C H 104 H 41 H 91 11/15/24 12:00 111/88 11/15/24 11:57 38.1 C H 103 H 40 H 91 11/15/24 11:45 108/84 11/15/24 11:45 38.1 C H 102 H 39 H 92 11/15/24 11:33 38.1 C H 100 H 37 H 91 11/15/24 11:30 106/85 11/15/24 11:21 38.1 C H 97 H 37 H 91 11/15/24 11:15 38.2 C H 99 H 37 H 92 11/15/24 11:15 113/86 11/15/24 11:03 38.3 C H 100 H 33 H 94 11/15/24 11:00 104/83 11/15/24 11:00 104/83 11/15/24 11:00 104/83 11/15/24 10:57 38.3 C H 102 H 39 H 92 11/15/24 10:54 38.3 C H 103 H 37 H 92 11/15/24 10:45 98/77 L 11/15/24 10:40 38.3 C H 106 H 38 H 107/81 94 11/15/24 10:31 95 11/15/24 10:27 38.2 C H 104 H 39 H 89 L 11/15/24 10:25 109/81 11/15/24 10:25 109/81 11/15/24 10:16 92 11/15/24 10:12 37.8 C H 108 H 36 H 90 11/15/24 10:11 109 H 11/15/24 09:50 106/85 11/15/24 09:48 114 H 43 H 91 09/14/25 09:45 110/88 11/15/24 09:37 82 L 11/15/24 09:27 123 H 34 H 117/85 11/15/24 09:25 38.6 C H 125 H 45 H 117/85 82 L 11/15/24 09:11 24 O2 Del Method O2 Flow Rate FiO2 11/15/24 15:53 50 11/15/24 15:51 11/15/24 15:50 11/15/24 12:30 11/15/24 12:30 Oxymask 10 11/15/24 12:15 11/15/24 12:15 11/15/24 12:12 11/15/24 12:09 Oxymask 10 11/15/24 12:00 11/15/24 11:57 11/15/24 11:45 11/15/24 11:45 11/15/24 11:33 Oxymask 10 11/15/24 11:30 11/15/24 11:21 Oxymask 12 11/15/24 11:15 Oxymask 11/15/24 11:15 11/15/24 11:03 Oxymask 11/15/24 11:00 11/15/24 11:00 11/15/24 11:00 11/15/24 10:57 11/15/24 10:54 11/15/24 10:45 11/15/24 10:40 Oxymask 12 11/15/24 10:31 Oxymask 12 11/15/24 10:27 11 11/15/24 10:25 11/15/24 10:25 11/15/24 10:16 Oxymask 11 11/15/24 10:12 Oxymask 11 11/15/24 10:11 11/15/24 09:50 11/15/24 09:48 Oxymask 11/15/24 09:45 11/15/24 09:37 Oxymask 11/15/24 09:27 Room Air 11/15/24 09:25 Room Air 11/15/24 09:11 Transfer of Care Handoff Completed per policy Notes Mental Status: see notes below (pt intubated and sedated) Patient Amnestic to Procedure: Yes Nausea / Vomiting: see Notes below (OGT to suction) Pain: see Notes below (pt sedated) Airway Patency, RR, SpO2: see Notes below (pt intubated and mechanically ventilated) BP & HR: stable & adequate Hydration State: see Notes below (ongoing fluid resuscitation) Anesthetic Complications: no major complications apparent
[2024-11-15] MEDS ORDERED: PIPERACILLIN/TAZOBACTAM 4.5 GM/100 ML BAG IV SCH (16:24)
[2024-11-15] MEDS: fentaNYL citrate 2,500 MCG/250 ML BAG IV ONE (16:45)
[2024-11-15 17:26] LABS: Hematocrit (blood only) 39.9 % (42.0-52.0); Hemoglobin 14.1 g/dl (14.0-18.0)
[2024-11-15 17:41] LABS: Alanine Aminotransferase 150.0 U/L (7-52); Albumin Globulin Ratio 1.0 (0.9-2); Albumin Level 2.8 gm/dl (3.4-5.0); Alkaline Phosphatase 28.0 U/L (34-104); Anion Gap 15.0 (3-11); Bilirubin,Total 3.1 mg/dl (0.2-1.0); Blood Urea Nitrogen 61.0 mg/dl (6-23); Calcium 7.1 mg/dl (8.6-10.3); Carbon Dioxide 26.0 mmol/L (21-32); Chloride 93.0 mmol/L (98-107); Creatinine Clr Calc Pharmacy 16.4 ml/min; Globulin 2.8 gm/dl (2.5-4.0); Glucose 148.0 mg/dl (70-99(Fasting)); Potassium 3.2 mmol/L (3.5-5.1); Sodium 134.0 mmol/L (136-145); Total Protein 5.6 gm/dl (6.0-8.3)
[2024-11-15] MEDS: PHENYTOIN 100 MG in SYRINGE 0 ML IV SCH (17:41)
[2024-11-15] MEDS: SODIUM CHLORIDE 0.9% 10ML FLUSH IV SCH (17:42)
--- NOTE | 2024-11-15 17:42 | Billing Data ---
Date of Service November 15, 2024 Coding Level of Care Code 82414 INT INP/OBS CARE
[2024-11-15] MEDS: ACETAMINOPHEN 1,000 MG/100 ML VIAL IV SCH (17:44)
[2024-11-15 17:45] LABS: ALC (manual) 0.94 K/uL (1.2-3.4); ANC (manual) 3.05 K/uL (1.4-6.5); Mean Corpuscular Hemoglobin 28.3 pg (25.0-34.0); Mean Corpuscular Volume 80.1 fL (80.0-100.0); Platelet Count 245 K/uL (130-400); RDW Standard Deviation 35.9 fL (36.4-46.3); Red Blood Count 4.98 M/uL (4.70-6.10); Toxic Vacuolation 2+; White Blood Count 4.49 K/ul (4.8-10.8)
--- NOTE | 2024-11-15 18:30 | Critical Care Consultation ---
Date of Consultation November 15, 2024 Assessment & Plan (1) Small bowel obstruction: (2) ROQUE (acute kidney injury): (3) Seizure disorder: (4) On mechanically assisted ventilation: Plan Reason Critically Ill: 64 YOM noted to have small bowel obstruction with nausea and vomiting. Taken urgently to OR, had ex-lap performed with removal of foreign object. Patient was re-anastomosed, abdomen is closed and brought to ICU for further care as he remains intubated. Neuro - Sedation for mechanical ventilation, acute surgical pain. Hx: Seizure, schizophrenia CAM ICU: SARIAH - Propofol and Fentanyl for sedation and pain management- daily awakenings with hopeful goal to be extubated by morning. - For his seizure disorder- continue his Phenytoin- will obtain level in am - Propranolol for seizure- will be on hold while he is NPO- could consider adding another agent IV if he needs further management - Anxiety and mood disorder- meds on hold while NPO Cardiac - Hypovolemia with shock - Hypovolemia likely secondary inability to keep food or fluids down for past fe w days - now post surgical - lactate has cleared and improvement with renal indices - follow hemodynamics and urine output- currently with minimal urine output- LR 500ml bolus now and then 115ml/hr Respiratory - Intubation requiring mechanical post surgical - Daily SBT in am - hopeful to extubate- minimal vent settings at this time GI - S/p ex-lap with resection and removal of foreign body- reanastomosed, abdomen closed - OGT to suction- management per GS - NPO - Follow abdominal exams - PPI continue RENAL/LYTES - ROQUE on CKD - continue with resuscitation as above- follow urine output- defend MAPS - ICU electrolyte protocol - No acute needs - Dugan to gravity ENDO - No acute needs- Hx: Hypothyroidism - ICU hyperglycemic/hypoglycemic protocol - Consider if extended NPO- convert Synthroid to IV HEME - No acute needs - Transfuse for active bleeding, HGB <7.0 or symptomatic ID - empiric coverage for GI source - Zosyn - blood cultures pending - pathology pending LINES/IV ACCESS - PIV, ETT, Sharron, OGT, Dugan Continue use of these lines DVT PROPHYLAXIS - SCDS, Hold chemoprophylaxis until hemostasis is ensured DISPO: ICU while intubated and sedated. I have personally spent 45 minutes of critical care time in the direct management of this patient. This is a life/limb threatening event. This includes time spent evaluating patient, direct bedside care, chart review, placing orders, interpretation of diagnostic studies, discussion with consultants, patient, and family members, as well as other required patient management activities. This time is exclusive of all separately billable procedures, and teaching time and separate from and in addition to any other critical care service time. Thank you for allowing us to participate in the care of this patient. Please refer to my attending physician's documentation for any further recommendations. History of Present Illness Reason for Consultation: s/p ex lap small bowel resection with anastamosis Requesting Physician: César Diaz DO Attending Physician: César Diaz DO History of Present Illness 64 YOM with history of autism, schizophrenia, Hypothyroidism, HLD, GERD. Presented to the ER for progressive nausea, vomitting, since 11/12. Imaging was obtained and concern for small bowel obstruction. He was urgently taken to the OR by Dr. Stewart of General Surgery. On exploration noted to have hyperemic and edematous proximal small bowel, further investigation appeared to be secondary to foriegn body, this was removed and appeared to be a bouncy ball by report. He was reanastomosed, and his abdomen was closed. He was left intubated and returned to the ICU. He is on no vasoactive medicaitons at this time. Tolerating sedation well, OGT to suction, Dugan with minimal urine output. Continue to monitor overnight, continue supportive care and resuscitation as required for MAPS and UO. CODE: FULL Allergies Allergy/AdvReac Type Severity Reaction Status Date / Time No Known Allergies Allergy Verified 11/14/24 09:50 Home Medications Medication Instructions Recorded Confirmed Type fenofibrate 160 mg tablet 160 mg PO QAM #90 tabs 04/06/24 11/15/24 Rx diaper,brief,adult,disposable #100 ea 04/17/24 11/14/24 Rx mirtazapine 45 mg tablet 45 mg PO HS #90 tabs 04/29/24 11/15/24 Rx multivitamin-iron 9 mg-folic acid 1 tab PO QAM #90 tabs 04/29/24 11/15/24 Rx 400 mcg-calcium and minerals tablet risperidone 0.25 mg tablet 0.25 mg PO QAM Schizophrenia #90 05/21/24 11/15/24 Rx tabs hydroxyzine pamoate 50 mg capsule 50 mg PO TID #270 caps 05/25/24 11/15/24 Rx risperidone 1 mg tablet (Risperdal) 1 mg PO HS #90 tabs 05/25/24 11/15/24 Rx famotidine 40 mg tablet 40 mg PO QAM GERD #90 tabs 06/15/24 11/15/24 Rx sertraline 50 mg tablet 50 mg PO QAM #90 tabs 06/16/24 11/15/24 Rx phenytoin sodium extended 100 mg 200 mg (2 x 100 mg) PO BID 06/25/24 11/15/24 Rx capsule EPILEPSY #360 caps propranolol 20 mg tablet 20 mg PO TID Epilepsy #270 tabs 09/08/24 11/15/24 Rx clonazepam 1 mg tablet 1 mg PO QID #112 tabs 10/16/24 11/15/24 Rx levothyroxine 50 mcg tablet 50 mcg PO QAM Hypothyroid #90 tabs 10/16/24 11/15/24 Rx (Synthroid) cholecalciferol (vitamin D3) 50 50 mcg PO DAILY #90 caps 10/29/24 11/15/24 Rx mcg (2,000 unit) capsule cephalexin 500 mg capsule 500 mg PO TID 7 days #21 caps 11/14/24 11/15/24 Rx Patient History Medical History Undifferentiated schizophrenia Autism per caregiver "he is mostly non-verbal, except for simple words and phrases" History of rubella remote hx Gastritis hx History of pica Surgical History History of cataract surgery right Hx of tooth extraction Family History Denies family history of Ovarian cancer Prostate cancer Myocardial infarction Breast cancer Colorectal cancer Social History Smoking Status: Unknown if ever smoked Second Hand Exposure: No; Do You Dip or Chew Tobacco: No; Hx Alcohol Use: No (unknown) Hx Substance Use: No (unknown) Preferred Language: Thai Communication Ability: Effective Communication Ability Comment: Pt sedated/intubated Paper Sales Manager Required: No Beliefs That Will Affect Care: None Current Living Situation: Other Current Living Situation Comment: nursing home current occupational status: disabled Feels Safe at Home: Yes Childhood Exposure to Second-Hand Smoke: No Diet: regular caffeine: Yes Dental Care, Regularly: Yes Physical Activity Frequency: Daily Physical Activity Frequency Comment: Walking Seatbelt Use: always Sunscreen Use: Yes Assistive Devices: None Review of Systems Review of Systems: unable to be performed secondary to intubation and sedation Physical Exam Physical Exam: PHYSICAL EXAM: General: intubated and sedated Neuro: Sedated with propofol and fentanyl, withdraw to pain, facial grimace, pupils equal and reactive Chest: equal rise and fall of the chest, no accessory muscle use, no heaves or thrills, Clear to auscultation, on room air, Cardiac: Regular rate and rhythm, telemetry reviewed- NSR, skin warm dry, cap refill <3 seconds, peripheral pulses +2 no JVD, no murmur, no edema GI: abdominal binder in place, no strikethrough noted on visible dressing : Dugan to gravity draining dilute yellow urine Results & Data Results & Data Vital Signs (Past 12 Hours) Vital Signs Temp Pulse Pulse Resp BP BP Pulse Ox 11/15/24 18:20 109/78 11/15/24 18:10 100/73 11/15/24 18:06 88 16 95 11/15/24 18:01 11/15/24 18:00 101/77 11/15/24 18:00 90 16 94 11/15/24 17:58 91 H 11/15/24 17:48 91 H 16 95 11/15/24 17:40 101/78 11/15/24 17:33 85 16 94 11/15/24 17:30 104/78 11/15/24 17:28 11/15/24 17:27 90 16 94 11/15/24 17:21 91 H 16 94 11/15/24 17:20 109/77 11/15/24 17:18 85 16 94 11/15/24 17:15 90 16 94 11/15/24 17:10 112/81 11/15/24 17:09 89 16 94 11/15/24 17:06 88 16 90 11/15/24 16:57 90 16 87 L 11/15/24 16:40 114/80 11/15/24 16:33 87 16 94 11/15/24 16:30 118/76 11/15/24 16:30 36.8 C 88 16 118/76 95 11/15/24 16:27 16 95 11/15/24 16:20 36.7 C 87 16 120/85 95 11/15/24 16:20 120/85 11/15/24 16:10 36.7 C 87 16 123/87 96 11/15/24 16:00 36.7 C 85 16 112/84 96 11/15/24 16:00 112/84 11/15/24 15:57 85 16 96 11/15/24 15:53 84 16 96 11/15/24 15:51 80 16 96 11/15/24 15:50 36.6 C 85 16 112/86 96 11/15/24 15:50 112/86 11/15/24 15:29 36.7 C 87 24 120/82 99 11/15/24 12:30 110/80 11/15/24 12:30 38.2 C H 109 H 39 H 90 11/15/24 12:15 103/83 11/15/24 12:15 103/83 11/15/24 12:12 38.1 C H 103 H 33 H 11/15/24 12:09 38.1 C H 104 H 41 H 91 11/15/24 12:00 111/88 11/15/24 11:57 38.1 C H 103 H 40 H 91 11/15/24 11:45 108/84 11/15/24 11:45 38.1 C H 102 H 39 H 92 11/15/24 11:33 38.1 C H 100 H 37 H 91 11/15/24 11:30 106/85 11/15/24 11:21 38.1 C H 97 H 37 H 91 11/15/24 11:15 38.2 C H 99 H 37 H 92 11/15/24 11:15 113/86 11/15/24 11:03 38.3 C H 100 H 33 H 94 11/15/24 11:00 104/83 11/15/24 11:00 104/83 11/15/24 11:00 104/83 11/15/24 10:57 38.3 C H 102 H 39 H 92 11/15/24 10:54 38.3 C H 103 H 37 H 92 11/15/24 10:45 98/77 L 11/15/24 10:40 38.3 C H 106 H 38 H 107/81 94 11/15/24 10:31 95 11/15/24 10:27 38.2 C H 104 H 39 H 89 L 11/15/24 10:25 109/81 11/15/24 10:25 109/81 11/15/24 10:16 92 11/15/24 10:12 37.8 C H 108 H 36 H 90 11/15/24 10:11 109 H 11/15/24 09:50 106/85 11/15/24 09:48 114 H 43 H 91 11/15/24 09:45 110/88 11/15/24 09:37 82 L 11/15/24 09:27 123 H 34 H 117/85 11/15/24 09:25 38.6 C H 125 H 45 H 117/85 82 L 11/15/24 09:11 24 O2 Del Method O2 Flow Rate FiO2 11/15/24 18:20 11/15/24 18:10 11/15/24 18:06 11/15/24 18:01 Mechanical Vent 11/15/24 18:00 11/15/24 18:00 11/15/24 17:58 11/15/24 17:48 11/15/24 17:40 11/15/24 17:33 11/15/24 17:30 11/15/24 17:28 50 11/15/24 17:27 11/15/24 17:21 11/15/24 17:20 11/15/24 17:18 11/15/24 17:15 11/15/24 17:10 11/15/24 17:09 11/15/24 17:06 11/15/24 16:57 11/15/24 16:40 11/15/24 16:33 11/15/24 16:30 11/15/24 16:30 Mechanical Vent 11/15/24 16:27 11/15/24 16:20 Mechanical Vent 11/15/24 16:20 11/15/24 16:10 Mechanical Vent 11/15/24 16:00 Mechanical Vent 11/15/24 16:00 11/15/24 15:57 11/15/24 15:53 50 11/15/24 15:51 11/15/24 15:50 Mechanical Vent 11/15/24 15:50 11/15/24 15:29 Mechanical Vent 11/15/24 12:30 11/15/24 12:30 Oxymask 10 11/15/24 12:15 11/15/24 12:15 11/15/24 12:12 11/15/24 12:09 Oxymask 10 11/15/24 12:00 11/15/24 11:57 11/15/24 11:45 11/15/24 11:45 11/15/24 11:33 Oxymask 10 11/15/24 11:30 11/15/24 11:21 Oxymask 12 11/15/24 11:15 Oxymask 11/15/24 11:15 11/15/24 11:03 Oxymask 11/15/24 11:00 11/15/24 11:00 11/15/24 11:00 11/15/24 10:57 11/15/24 10:54 11/15/24 10:45 11/15/24 10:40 Oxymask 12 11/15/24 10:31 Oxymask 12 11/15/24 10:27 11 11/15/24 10:25 11/15/24 10:25 11/15/24 10:16 Oxymask 11 11/15/24 10:12 Oxymask 11 11/15/24 10:11 11/15/24 09:50 11/15/24 09:48 Oxymask 10 11/15/24 09:45 11/15/24 09:37 Oxymask 11/15/24 09:27 Room Air 11/15/24 09:25 Room Air 11/15/24 09:11 Laboratory Results Abnormal lab results 11/15/24 11/15/24 11/15/24 Range/Units 09:32 09:39 10:36 WBC (4.8-10.8) K/ul RBC 6.20 H (4.70-6.10) M/uL Hct (42.0-52.0) % POC Hct 53 H (42-52) % RDW Std Deviation (36.4-46.3) fL Lymphocytes # (Manual) 1.14 L (1.2-3.4) K/uL Total Abs Lymphocytes (1.2-3.4) K/uL Monocytes # (Manual) 0.08 L (0.11-0.59) K/uL Metamyelocytes # (Man) 0.24 H (0-0) K/uL PT 13.5 H (9.0-12.0) Seconds INR 1.3 H (0.9-1.1) VBG pH 7.44 H (7.36-7.41) POC Sodium 130 L (135-144) mmol/L Sodium 132 L (136-145) mmol/L POC Potassium 3.2 L (3.3-5.0) mmol/L Potassium (3.5-5.1) mmol/L POC Chloride 86 L (101-112) mmol/L Chloride 77 L (98-107) mmol/L Anion Gap 28 H (3-11) POC BUN 58 H (7-18) mg/dl BUN 58 H (6-23) mg/dl Creatinine 5.18 H* (0.6-1.4) mg/dl POC Creatinine 5.4 H* (0.6-1.3) mg/dl Glucose 201 H (70-99(Fasting)) mg/dl POC Glucose (70-99) mg/dl POC Glucose (other) 199 H (70-99) mg/dl Lactate 10.7 H* (0.4-2.0) mmol/L Calcium (8.6-10.3) mg/dl POC Ioniz Calcium Marissa 0.91 L (1.12-1.32) mmol/l Total Bilirubin 2.8 H (0.2-1.0) mg/dl Direct Bilirubin 1.6 H (0-0.2) mg/dl AST 94 H (13-39) U/L ALT 83 H (7-52) U/L Alkaline Phosphatase (34-104) U/L Troponin I High Sens 65.0 H* (0-20) pg/ml Total Protein (6.0-8.3) gm/dl Albumin (3.4-5.0) gm/dl Procalcitonin 15.40 H (0-0.5) ng/ml 11/15/24 11/15/24 11/15/24 Range/Units 11:35 16:54 17:51 WBC 4.49 L (4.8-10.8) K/ul RBC (4.70-6.10) M/uL Hct 39.9 L (42.0-52.0) % POC Hct (42-52) % RDW Std Deviation 35.9 L (36.4-46.3) fL Lymphocytes # (Manual) 0.94 L (1.2-3.4) K/uL Total Abs Lymphocytes 0.94 L (1.2-3.4) K/uL Monocytes # (Manual) (0.11-0.59) K/uL Metamyelocytes # (Man) 0.18 H (0-0) K/uL PT (9.0-12.0) Seconds INR (0.9-1.1) VBG pH (7.36-7.41) POC Sodium (135-144) mmol/L Sodium 134 L (136-145) mmol/L POC Potassium (3.3-5.0) mmol/L Potassium 3.2 L (3.5-5.1) mmol/L POC Chloride (101-112) mmol/L Chloride 93 L (98-107) mmol/L Anion Gap 15 H (3-11) POC BUN (7-18) mg/dl BUN 61 H (6-23) mg/dl Creatinine 4.39 H D (0.6-1.4) mg/dl POC Creatinine (0.6-1.3) mg/dl Glucose 148 H (70-99(Fasting)) mg/dl POC Glucose 133 H (70-99) mg/dl POC Glucose (other) (70-99) mg/dl Lactate 4.3 H* (0.4-2.0) mmol/L Calcium 7.1 L D (8.6-10.3) mg/dl POC Ioniz Calcium Marissa (1.12-1.32) mmol/l Total Bilirubin 3.1 H (0.2-1.0) mg/dl Direct Bilirubin (0-0.2) mg/dl AST 290 H (13-39) U/L ALT 150 H (7-52) U/L Alkaline Phosphatase 28 L (34-104) U/L Troponin I High Sens 99.8 H* D (0-20) pg/ml Total Protein 5.6 L D (6.0-8.3) gm/dl Albumin 2.8 L (3.4-5.0) gm/dl Procalcitonin (0-0.5) ng/ml Diagnostic Findings Chest X-Ray 11/15/24 09:35 XR chest 1V portable CLINICAL HISTORY: Sepsis COMPARISON STUDY: None FINDINGS: There is cardiomegaly without pulmonary vascular congestion. Inspiration is shallow which limits the exam. There is mild stranding in the lung bases. No other consolidation or pleural effusion seen. No pneumothorax. IMPRESSION: Likely mild lung base atelectasis. ACT 112: Negative or not required by law. Electronically signed by: Leonard Lozano M.D. 11/15/2024 9:50 AM Abdomen/Pelvis CT 11/15/24 09:[address] WITHOUT CONTRAST CT DOSE: 2429.67 mGy.cm HISTORY: uti flank pain TECHNIQUE: Multiaxial CT images of the abdomen and pelvis were performed without contrast. A dose lowering technique was utilized adhering to the principles of ALARA. COMPARISON STUDY: None FINDINGS: There is reticular and patchy opacity in the lower lobes which could represent pneumonia or atelectasis. ABDOMEN: Liver, gallbladder, spleen, pancreas, and adrenal glands have an unremarkable noncontrast appearance. Kidneys show no hydronephrosis or calculi. There are mild atherosclerotic calcifications. No abdominal aortic aneurysm. There is severe distention of the stomach with retained fluid and food. There is distention of the duodenum, and jejunum measuring up to 5 cm diameter. At the transition zone to normal caliber small bowel at the lateral right mid abdomen series 9 Image 256 at the distal jejunum/proximal ileum there is a 2.4 cm intraluminal calcification. Small bowel is decompressed beyond that point. Pelvis: There is no colonic distention. There is sigmoid diverticulosis without evidence of acute diverticulitis. Normal appendix. There is trace scattered free fluid. No free air, or abscess. No enlarged adenopathy. Dugan catheter is present and the urinary bladder is nondistended. There is increased density within the urinary bladder suggesting clot. Prostate is enlarged. Osseous structures: There is mild lumbar degenerative disc disease. There are mild degenerative changes at the hips. IMPRESSION: 1. Small bowel obstruction caused by an intraluminal calcification at the distal jejunum/proximal ileum. 2. Pneumonia versus atelectasis at the lung bases. 3. Otherwise as described. ACT 112: Negative or not required by law. The above report was generated using voice recognition software. It may contain grammatical, syntax or spelling errors. Electronically signed by: Leonard Lozano M.D. 11/15/2024 10:[address] 11/15/24 09:36 CT head/brain wo con CLINICAL HISTORY: ams. TECHNIQUE: Multiple axial CT images of the head were obtained without contrast. A dose lowering technique was utilized adhering to the principles of ALARA. COMPARISON: None FINDINGS: There is mild motion artifact. No intracranial hemorrhage seen. No mass effect, midline shift, or hydrocephalus. There are mild chronic small vessel ischemic changes. No skull fracture seen. IMPRESSION: No acute findings. ACT 112: Negative or not required by law. The above report was generated using voice recognition software. It may contain grammatical, syntax or spelling errors. Electronically signed by: Leonard Lozano M.D. 11/15/2024 10:50 AM KUB X-Ray 11/15/24 12:18 KUB HISTORY: ng placement COMPARISON STUDY: CT earlier today FINDINGS: Nasogastric tube tip is in the distal body of the stomach. There is stable severe gastric and upper abdominal small bowel distention. IMPRESSION: Nasogastric tube tip is in the distal body of the stomach. ACT 112: Negative or not required by law. The above report was generated using voice recognition software. It may contain grammatical, syntax or spelling errors. Electronically signed by: Leonard Lozano M.D. 11/15/2024 12:38 PM Chest X-Ray 11/15/24 16:38 Exam: Chest one view portable Reason for exam: Endotracheal tube and NG tube were placed. Previous studies: None FINDINGS: Endotracheal tube is seen with the tip directed to the right mainstem bronchus and should be withdrawn approximately 3.0 cm. The nasogastric tube is seen passing into the left upper quadrant and appears coiled within the lumen of the stomach. Cardiac size is top normal. Central pulmonary venous hypertension and congestion are present. IMPRESSION: 1. Endotracheal tube is heading into the right mainstem bronchus and should be withdrawn approximately 3.0 cm, with a repeat chest radiograph obtained to ensure correct positioning. 2. Nasogastric tube appears in correct position. 3. Central pulmonary venous hypertension/congestion. Electronically signed by Leonard Solares 11-15-2024 6:41 PM Medications Administered Propofol (Diprivan) 1,000 mg in 100 mls @ 13.752 mls/hr IV .Q7H17M [facility]; Protocol Stop: 11/18/24 15:59 Last Titration: 11/15/24 16:50 Dose: 30 mcg/kg/min, 13.8 mls/hr Documented By: Titration: 11/15/24 16:28 Dose: 25 mcg/kg/min, 11.5 mls/hr Documented By: Admin: 11/15/24 16:18 Dose: 20 mcg/kg/min, 9.2 mls/hr Documented By: DEAN Co-signed By: LUIS ENRIQUE Fentanyl Citrate (Fentanyl Citrate) 2,500 mcg in 250 mls @ 5 mls/hr IV .Q50H [facility]; Protocol Stop: 11/29/24 16:14 Last Titration: 11/15/24 17:05 Dose: 50 mcg/hr, 5 mls/hr Documented By: DEAN Co-signed By: LUIS ENRIQUE Admin: 11/15/24 16:19 Dose: 25 mcg/hr, 2.5 mls/hr Documented By: DEAN Co-signed By: LUIS ENRIQUE Acetaminophen (Ofirmev) 1,000 mg in 100 mls @ 400 mls/hr IV Q8H [facility] Stop: 11/18/24 16:23 Last Infusion: 11/15/24 18:08 Dose: Infused Documented By: LUIS ENRIQUE Admin: 11/15/24 17:44 Dose: 400 mls/hr Documented By: MIREILLE Phenytoin 100 mg/ Syringe 2 mls @ 1 mls/min IV QID HUNG Stop: 12/15/24 16:59 Last Admin: 11/15/24 17:41 Dose: 1 mls/min Documented By: MIREILLE Lactated Ringer's (Lr) 500 mls @ 999 mls/hr IV .Q31M ONE Stop: 11/15/24 19:06 Last Admin: 11/15/24 18:43 Dose: 999 mls/hr Documented By: LUIS ENRIQUE Miscellaneous (Icu Protocol For Hyperglycemia) 1 each N/A ACHS [facility] Stop: 11/17/24 16:29 Last Admin: 11/15/24 17:54 Dose: Not Given Documented By: LUIS ENRIQUE Propofol (Propofol Bolus From Bag) 20 mg IV Q5M PRN PRN Reason: Sedation Stop: 11/18/24 15:58 Last Admin: 11/15/24 16:19 Dose: 20 mg Documented By: DEAN Co-signed By: LUIS ENRIQUE Sodium Chloride (Sodium Chloride 0.9% 10ml Flush) 20 ml IV QID HUNG Stop: 12/15/24 16:59 Last Admin: 11/15/24 17:42 Dose: 20 ml Documented By: MIREILLE Discontinued Medications Bupivacaine HCl (Bupivacaine 0.5 % 5 Mg/1 Ml Mpf 30ml Vial) Confirm Administered Dose 30 ml .ROUTE .STK-MED ONE Stop: 11/15/24 12:46 Last Admin: 11/15/24 15:12 Dose: 20 ml Documented By: [id number] Fentanyl Citrate (Fentanyl Citrate 2,500 Mcg/250 Ml Bag) Confirm Administered Dose 2,500 mcg IV .STK-MED ONE Stop: 11/15/24 16:07 Last Admin: 11/15/24 16:45 Dose: Not Given Documented By: LUIS ENRIQUE Sodium Chloride (Nss) 1,000 mls @ 999 mls/hr IV .Q1H1M [facility] Stop: 11/15/24 10:45 Last Infusion: 11/15/24 10:59 Dose: Infused Documented By: Admin: 11/15/24 09:47 Dose: 999 mls/hr Documented By: EVELYN Acetaminophen (Ofirmev) 1,000 mg in 100 mls @ 400 mls/hr IV NOW STA Stop: 11/15/24 10:04 Last Infusion: 11/15/24 10:19 Dose: Infused Documented By: martin Admin: 11/15/24 09:55 Dose: 400 mls/hr Documented By: EVELYN Sodium Chloride (Nss) 1,000 mls @ 999 mls/hr IV .Q1H1M ONE Stop: 11/15/24 10:50 Last Infusion: 11/15/24 11:35 Dose: Infused Documented By: Admin: 11/15/24 09:55 Dose: 999 mls/hr Documented By: EVELYN Cefepime HCl (Maxipime 2000mg) 2,000 mg in 20 mls @ 5 mls/min IV NOW STA; Protocol Stop: 11/15/24 09:55 Last Admin: 11/15/24 10:36 Dose: 5 mls/min Documented By: martin Piperacillin Sod/Tazobactam Sod (Zosyn) 4.5 gm in 100 mls @ 200 mls/hr IV NOW STA; Protocol Stop: 11/15/24 12:43 Last Infusion: 11/15/24 17:14 Dose: Infused Documented By: Admin: 11/15/24 14:08 Dose: 200 mls/hr Documented By: Y Lidocaine/Epinephrine (Lidocaine 1%/Epinephrine 1:100,000 50 Ml Vial) Confirm Administered Dose 20 ml .ROUTE .STK-MED ONE Stop: 11/15/24 12:46 Last Admin: 11/15/24 15:13 Dose: 20 ml Documented By: [id number] Lidocaine/Epinephrine (Lidocaine 1%/Epinephrine 1:100,000 50 Ml Vial) Confirm Administered Dose 20 ml .ROUTE .STK-MED ONE Stop: 11/15/24 13:28 Last Admin: 11/15/24 15:14 Dose: Not Given Documented By: ED Coding Level of Care Code 80351 CRITICAL CARE 1ST 30-74M Diagnoses Small bowel obstruction K56.609 ROQUE (acute kidney injury) N17.9 Seizure disorder G40.909 On mechanically assisted ventilation Z99.11
--- NOTE | 2024-11-15 18:42 | XRay Report ---
Exam: Chest one view portable Reason for exam: Endotracheal tube and NG tube were placed. Previous studies: None FINDINGS: Endotracheal tube is seen with the tip directed to the right mainstem bronchus and should be withdrawn approximately 3.0 cm. The nasogastric tube is seen passing into the left upper quadrant and appears coiled within the lumen of the stomach. Cardiac size is top normal. Central pulmonary venous hypertension and congestion are present. IMPRESSION: 1. Endotracheal tube is heading into the right mainstem bronchus and should be withdrawn approximately 3.0 cm, with a repeat chest radiograph obtained to ensure correct positioning. 2. Nasogastric tube appears in correct position. 3. Central pulmonary venous hypertension/congestion. Electronically signed by Leonard Solares 11-15-2024 6:41 PM
[2024-11-15] MEDS: LACTATED RINGER'S 500 ML IV ONE (18:43)
[2024-11-15 18:59] LABS: Appearance Urine Turbid (Clear); Bacteria Urine Automated None Seen (None Seen); Cast Urine Automated >20 /lpf (0-2); Glucose Urine UA Negative (Negative); WBC Urine Automated 0-5 /hpf (0-5)
--- NOTE | 2024-11-15 19:47 | Emergency Department Note ---
History of Present Illness General Chief complaint: Urinary Symptoms Stated complaint: UTI, VOMITING CLAMMY WEAK Time Seen by Provider: 11/15/24 09:22 History of Present Illness Provider complaint: Vomiting weakness 64-year-old male with intellectual disability presents to the emergency department for vomiting and weakness. Patient is here with his caregiver. Caregiver notes that the patient has been having weakness and vomiting. She reports no hematemesis but does report bilious vomiting. Caregiver reports that they took the patient to urgent care yesterday and was prescribed antibiotics for a UTI. The caregiver reports that the patient took the antibiotics but kept vomiting. She reports he appears more weak than normal. She reports no recent traumatic injuries. Home Medications Medication Instructions Recorded Confirmed Type fenofibrate 160 mg tablet 160 mg PO QAM #90 tabs 04/06/24 11/15/24 Rx diaper,brief,adult,disposable #100 ea 04/17/24 11/14/24 Rx mirtazapine 45 mg tablet 45 mg PO HS #90 tabs 04/29/24 11/15/24 Rx multivitamin-iron 9 mg-folic acid 1 tab PO QAM #90 tabs 04/29/24 11/15/24 Rx 400 mcg-calcium and minerals tablet risperidone 0.25 mg tablet 0.25 mg PO QAM Schizophrenia #90 05/21/24 11/15/24 Rx tabs hydroxyzine pamoate 50 mg capsule 50 mg PO TID #270 caps 05/25/24 11/15/24 Rx risperidone 1 mg tablet (Risperdal) 1 mg PO HS #90 tabs 05/25/24 11/15/24 Rx famotidine 40 mg tablet 40 mg PO QAM GERD #90 tabs 06/15/24 11/15/24 Rx sertraline 50 mg tablet 50 mg PO QAM #90 tabs 06/16/24 11/15/24 Rx phenytoin sodium extended 100 mg 200 mg (2 x 100 mg) PO BID 06/25/24 11/15/24 Rx capsule EPILEPSY #360 caps propranolol 20 mg tablet 20 mg PO TID Epilepsy #270 tabs 09/08/24 11/15/24 Rx clonazepam 1 mg tablet 1 mg PO QID #112 tabs 10/16/24 11/15/24 Rx levothyroxine 50 mcg tablet 50 mcg PO QAM Hypothyroid #90 tabs 10/16/24 11/15/24 Rx (Synthroid) cholecalciferol (vitamin D3) 50 50 mcg PO DAILY #90 caps 10/29/24 11/15/24 Rx mcg (2,000 unit) capsule cephalexin 500 mg capsule 500 mg PO TID 7 days #21 caps 11/14/24 11/15/24 Rx Allergies Allergy/AdvReac Type Severity Reaction Status Date / Time No Known Allergies Allergy Verified 11/14/24 09:50 Past Med/Surg History Problem List (Updated 11/15/24 @ 19:47 by Sergio Franco MD) Hypoxia (Acute) SBO (small bowel obstruction) (Acute) On mechanically assisted ventilation Seizures Elevated LFTs Elevated troponin ROQUE (acute kidney injury) Hypoxia Sepsis Small bowel obstruction Urinary symptom or sign Tick bite of right elbow Eye abnormality Encounter for immunization Complicated grieving Encounter for pre-operative examination Seizure disorder Routine health maintenance Abnormal thyroid function test Intellectual disability Diverticulosis Mood disorder NEENA (generalized anxiety disorder) (Chronic) Chronic kidney disease (Chronic) Stage 3 Hyperlipidemia (Chronic) Echolalia Undifferentiated schizophrenia (Chronic) Autism (Chronic) Hypothyroidism (acquired) Seizure last seizure over 1 year ago "more mild only last for a few seconds"; currently on phenytoin GERD (gastroesophageal reflux disease) (Chronic) Medical History Undifferentiated schizophrenia Autism per caregiver "he is mostly non-verbal, except for simple words and phrases" History of rubella remote hx Gastritis hx History of pica Surgical History History of cataract surgery right Hx of tooth extraction Family History Denies family history of Ovarian cancer Prostate cancer Myocardial infarction Breast cancer Colorectal cancer Social History Smoking Status: Unknown if ever smoked Second Hand Exposure: No; Do You Dip or Chew Tobacco: No; Hx Alcohol Use: No (unknown) Hx Substance Use: No (unknown) Preferred Language: Armenian Communication Ability: Effective Communication Ability Comment: Pt sedated/intubated Double Needle Stitcher Required: No Beliefs That Will Affect Care: None Current Living Situation: Other Current Living Situation Comment: half-way current occupational status: disabled Feels Safe at Home: Yes Childhood Exposure to Second-Hand Smoke: No Diet: regular caffeine: Yes Dental Care, Regularly: Yes Physical Activity Frequency: Daily Physical Activity Frequency Comment: Walking Seatbelt Use: always Sunscreen Use: Yes Assistive Devices: None Physical Exam Vital Signs Vital Signs - 24 hr 11/15/24 09:11 11/15/24 09:25 11/15/24 09:27 Temperature 38.6 C H Temperature Source Rectal Pulse Rate Pulse Rate [Apical] 125 H 123 H Pulse Rate from SpO2 Sensor Pulse Rhythm [Apical] Respiratory Rate 24 45 H 34 H Respiratory Effort / Characteristics Non-Labored Spontaneous Short of Breath Respiratory Depth Normal Respiratory Pattern Tachypnea Rapid/Deep Blood Pressure Blood Pressure [Left Arm] 117/85 117/85 Blood Pressure Mean Blood Pressure Mean [Left Arm] 95 95 Blood Pressure Position [Left Arm] Lying Pulse Oximetry 82 L Oxygen Delivery Method Room Air Room Air Oxygen Flow Rate Sepsis Recent Fever Within 48 Hours No Sepsis New/Unexplained Change in Mental Status No Sepsis Action Taken by Nursing No Action Required Oxygen Flow Rate - Titration Pulse Oximetry Post Tiitration 11/15/24 09:37 11/15/24 09:45 11/15/24 09:48 Temperature Temperature Source Pulse Rate 114 H Pulse Rate [Apical] Pulse Rate from SpO2 Sensor 114 H Pulse Rhythm [Apical] Respiratory Rate 43 H Respiratory Effort / Characteristics Respiratory Depth Respiratory Pattern Blood Pressure 110/88 Blood Pressure [Left Arm] Blood Pressure Mean 94 Blood Pressure Mean [Left Arm] Blood Pressure Position [Left Arm] Pulse Oximetry 82 L 91 Oxygen Delivery Method Oxymask Oxymask Oxygen Flow Rate 10 Sepsis Recent Fever Within 48 Hours Sepsis New/Unexplained Change in Mental Status Sepsis Action Taken by Nursing Oxygen Flow Rate - Titration 10 Pulse Oximetry Post Tiitration 90 11/15/24 09:50 11/15/24 10:11 11/15/24 10:12 Temperature 37.8 C H Temperature Source Pulse Rate 109 H 108 H Pulse Rate [Apical] Pulse Rate from SpO2 Sensor 111 H Pulse Rhythm [Apical] Respiratory Rate 36 H Respiratory Effort / Characteristics Respiratory Depth Respiratory Pattern Blood Pressure 106/85 Blood Pressure [Left Arm] Blood Pressure Mean 90 Blood Pressure Mean [Left Arm] Blood Pressure Position [Left Arm] Pulse Oximetry 90 Oxygen Delivery Method Oxymask Oxygen Flow Rate 11 Sepsis Recent Fever Within 48 Hours Sepsis New/Unexplained Change in Mental Status Sepsis Action Taken by Nursing Oxygen Flow Rate - Titration Pulse Oximetry Post Tiitration 11/15/24 10:16 11/15/24 10:25 11/15/24 10:25 Temperature Temperature Source Pulse Rate Pulse Rate [Apical] Pulse Rate from SpO2 Sensor Pulse Rhythm [Apical] Respiratory Rate Respiratory Effort / Characteristics Respiratory Depth Respiratory Pattern Blood Pressure 109/81 109/81 Blood Pressure [Left Arm] Blood Pressure Mean 88 88 Blood Pressure Mean [Left Arm] Blood Pressure Position [Left Arm] Pulse Oximetry 92 Oxygen Delivery Method Oxymask Oxygen Flow Rate 11 Sepsis Recent Fever Within 48 Hours Sepsis New/Unexplained Change in Mental Status Sepsis Action Taken by Nursing Oxygen Flow Rate - Titration Pulse Oximetry Post Tiitration 11/15/24 10:27 11/15/24 10:31 11/15/24 10:40 Temperature 38.2 C H 38.3 C H Temperature Source Dugan Cath ( Temp Sensing) Pulse Rate 104 H Pulse Rate [Apical] 106 H Pulse Rate from SpO2 Sensor 105 H Pulse Rhythm [Apical] Respiratory Rate 39 H 38 H Respiratory Effort / Characteristics Spontaneous Short of Breath Respiratory Depth Deep Respiratory Pattern Rapid/Deep Blood Pressure Blood Pressure [Left Arm] 107/81 Blood Pressure Mean Blood Pressure Mean [Left Arm] 89 Blood Pressure Position [Left Arm] Lying Pulse Oximetry 89 L 95 94 Oxygen Delivery Method Oxymask Oxymask Oxygen Flow Rate 11 12 12 Sepsis Recent Fever Within 48 Hours Sepsis New/Unexplained Change in Mental Status Sepsis Action Taken by Nursing Oxygen Flow Rate - Titration Pulse Oximetry Post Tiitration 11/15/24 10:45 11/15/24 10:54 11/15/24 10:57 Temperature 38.3 C H 38.3 C H Temperature Source Pulse Rate 103 H 102 H Pulse Rate [Apical] Pulse Rate from SpO2 Sensor 105 H 102 H Pulse Rhythm [Apical] Respiratory Rate 37 H 39 H Respiratory Effort / Characteristics Respiratory Depth Respiratory Pattern Blood Pressure 98/77 L Blood Pressure [Left Arm] Blood Pressure Mean 83 Blood Pressure Mean [Left Arm] Blood Pressure Position [Left Arm] Pulse Oximetry 92 92 Oxygen Delivery Method Oxygen Flow Rate Sepsis Recent Fever Within 48 Hours Sepsis New/Unexplained Change in Mental Status Sepsis Action Taken by Nursing Oxygen Flow Rate - Titration Pulse Oximetry Post Tiitration 11/15/24 11:00 11/15/24 11:00 11/15/24 11:00 Temperature Temperature Source Pulse Rate Pulse Rate [Apical] Pulse Rate from SpO2 Sensor Pulse Rhythm [Apical] Respiratory Rate Respiratory Effort / Characteristics Respiratory Depth Respiratory Pattern Blood Pressure 104/83 104/83 104/83 Blood Pressure [Left Arm] Blood Pressure Mean 92 92 92 Blood Pressure Mean [Left Arm] Blood Pressure Position [Left Arm] Pulse Oximetry Oxygen Delivery Method Oxygen Flow Rate Sepsis Recent Fever Within 48 Hours Sepsis New/Unexplained Change in Mental Status Sepsis Action Taken by Nursing Oxygen Flow Rate - Titration Pulse Oximetry Post Tiitration 11/15/24 11:03 11/15/24 11:15 11/15/24 11:15 Temperature 38.3 C H 38.2 C H Temperature Source Pulse Rate 100 H 99 H Pulse Rate [Apical] Pulse Rate from SpO2 Sensor 100 H 99 H Pulse Rhythm [Apical] Respiratory Rate 33 H 37 H Respiratory Effort / Characteristics Respiratory Depth Respiratory Pattern Blood Pressure 113/86 Blood Pressure [Left Arm] Blood Pressure Mean 93 Blood Pressure Mean [Left Arm] Blood Pressure Position [Left Arm] Pulse Oximetry 94 92 Oxygen Delivery Method Oxymask Oxymask Oxygen Flow Rate Sepsis Recent Fever Within 48 Hours Sepsis New/Unexplained Change in Mental Status Sepsis Action Taken by Nursing Oxygen Flow Rate - Titration Pulse Oximetry Post Tiitration 11/15/24 11:21 11/15/24 11:30 11/15/24 11:33 Temperature 38.1 C H 38.1 C H Temperature Source Pulse Rate 97 H 100 H Pulse Rate [Apical] Pulse Rate from SpO2 Sensor 98 H 100 H Pulse Rhythm [Apical] Respiratory Rate 37 H 37 H Respiratory Effort / Characteristics Respiratory Depth Respiratory Pattern Blood Pressure 106/85 Blood Pressure [Left Arm] Blood Pressure Mean 95 Blood Pressure Mean [Left Arm] Blood Pressure Position [Left Arm] Pulse Oximetry 91 91 Oxygen Delivery Method Oxymask Oxymask Oxygen Flow Rate 12 10 Sepsis Recent Fever Within 48 Hours Sepsis New/Unexplained Change in Mental Status Sepsis Action Taken by Nursing Oxygen Flow Rate - Titration Pulse Oximetry Post Tiitration 11/15/24 11:45 11/15/24 11:45 11/15/24 11:57 Temperature 38.1 C H 38.1 C H Temperature Source Pulse Rate 102 H 103 H Pulse Rate [Apical] Pulse Rate from SpO2 Sensor 103 H 104 H Pulse Rhythm [Apical] Respiratory Rate 39 H 40 H Respiratory Effort / Characteristics Respiratory Depth Respiratory Pattern Blood Pressure 108/84 Blood Pressure [Left Arm] Blood Pressure Mean 88 Blood Pressure Mean [Left Arm] Blood Pressure Position [Left Arm] Pulse Oximetry 92 91 Oxygen Delivery Method Oxygen Flow Rate Sepsis Recent Fever Within 48 Hours Sepsis New/Unexplained Change in Mental Status Sepsis Action Taken by Nursing Oxygen Flow Rate - Titration Pulse Oximetry Post Tiitration 11/15/24 12:00 11/15/24 12:09 11/15/24 12:12 Temperature 38.1 C H 38.1 C H Temperature Source Pulse Rate 104 H 103 H Pulse Rate [Apical] Pulse Rate from SpO2 Sensor 104 H 103 H Pulse Rhythm [Apical] Respiratory Rate 41 H 33 H Respiratory Effort / Characteristics Respiratory Depth Respiratory Pattern Blood Pressure 111/88 Blood Pressure [Left Arm] Blood Pressure Mean 94 Blood Pressure Mean [Left Arm] Blood Pressure Position [Left Arm] Pulse Oximetry 91 Oxygen Delivery Method Oxymask Oxygen Flow Rate 10 Sepsis Recent Fever Within 48 Hours Sepsis New/Unexplained Change in Mental Status Sepsis Action Taken by Nursing Oxygen Flow Rate - Titration Pulse Oximetry Post Tiitration 11/15/24 12:15 11/15/24 12:15 11/15/24 12:30 Temperature 38.2 C H Temperature Source Pulse Rate 109 H Pulse Rate [Apical] Pulse Rate from SpO2 Sensor 109 H Pulse Rhythm [Apical] Respiratory Rate 39 H Respiratory Effort / Characteristics Respiratory Depth Respiratory Pattern Blood Pressure 103/83 103/83 Blood Pressure [Left Arm] Blood Pressure Mean 91 91 Blood Pressure Mean [Left Arm] Blood Pressure Position [Left Arm] Pulse Oximetry 90 Oxygen Delivery Method Oxymask Oxygen Flow Rate 10 Sepsis Recent Fever Within 48 Hours Sepsis New/Unexplained Change in Mental Status Sepsis Action Taken by Nursing Oxygen Flow Rate - Titration Pulse Oximetry Post Tiitration 11/15/24 12:30 11/15/24 15:29 Temperature 36.7 C Temperature Source Dugan Cath ( Temp Sensing) Pulse Rate Pulse Rate [Apical] 87 Pulse Rate from SpO2 Sensor Pulse Rhythm [Apical] Regular Respiratory Rate 24 Respiratory Effort / Characteristics Mechanically Ventilated Respiratory Depth Normal Respiratory Pattern Blood Pressure 110/80 Blood Pressure [Left Arm] 120/82 Blood Pressure Mean 85 Blood Pressure Mean [Left Arm] 94 Blood Pressure Position [Left Arm] Lying Pulse Oximetry 99 Oxygen Delivery Method Mechanical Vent Oxygen Flow Rate Sepsis Recent Fever Within 48 Hours Sepsis New/Unexplained Change in Mental Status Sepsis Action Taken by Nursing Oxygen Flow Rate - Titration Pulse Oximetry Post Tiitration Physical Exam HENT: Exam performed. - Head: Normocephalic and atraumatic. EYES: Conjunctivae and EOM are normal. Right eye exhibits no discharge. Left eye exhibits no discharge. No scleral icterus. NECK: Normal range of motion. Neck supple. No JVD present. CV: Tachycardic rate, regular rhythm, normal heart sounds and intact distal pulses. There is no peripheral edema. Palpable radial pulses bue. PULM/CHEST: Diminished breath sounds bilaterally. ABD: The abdomen is distended. Diffuse pain on palpation of the abdomen. NEURO: Motor and sensation grossly intact. Course Course 09: The patient was evaluated in room B1. A complete history and physical exam was performed Cardiac monitoring: An order was placed for continuous cardiac monitoring. The monitor shows a rate of 120 with sinus tachycardia rhythm interpreted by me Patient arrives febrile tachycardic and hypoxic. Supplemental oxygen applied via Ventimask which improved the patient's oxygen saturation. Sepsis protocols were initiated. 0948: Patient's blood pressure improving with IV fluids. Patient's lactic acid is 10. 30 cc/kg normal saline bolus ordered for the patient. Empiric antibiotics cefepime ordered for the patient. Patient's creatinine is elevated. Will conduct CT scans without contrast. 1103: Vital signs stable on supplemental oxygen. CT shows bowel obstruction. Spoke with [facility] who will evaluate the patient. 1220: Patient was eval by general surgery. General surgery states they want to take the patient to the OR. They request that the patient be admitted to medicine. [facility] hospitalist Dr. Farmer was made aware of the patient. Administered Medications Propofol (Diprivan) 1,000 mg in 100 mls @ 13.752 mls/hr IV .Q7H17M [facility]; Protocol Stop: 11/18/24 15:59 Last Titration: 11/15/24 19:18 Dose: 30 mcg/kg/min, 13.8 mls/hr Documented By: ALIS Co-signed By: LUIS ENRIQUE Titration: 11/15/24 16:50 Dose: 30 mcg/kg/min, 13.8 mls/hr Documented By: Titration: 11/15/24 16:28 Dose: 25 mcg/kg/min, 11.5 mls/hr Documented By: Admin: 11/15/24 16:18 Dose: 20 mcg/kg/min, 9.2 mls/hr Documented By: DEAN Co-signed By: LUIS ENRIQUE Fentanyl Citrate (Fentanyl Citrate) 2,500 mcg in 250 mls @ 5 mls/hr IV .Q50H [facility]; Protocol Stop: 11/29/24 16:14 Last Titration: 11/15/24 19:18 Dose: 50 mcg/hr, 5 mls/hr Documented By: ALIS Co-signed By: LUIS ENRIQUE Titration: 11/15/24 17:05 Dose: 50 mcg/hr, 5 mls/hr Documented By: EDAN Co-signed By: LUIS ENRIQUE Admin: 11/15/24 16:19 Dose: 25 mcg/hr, 2.5 mls/hr Documented By: DEAN Co-signed By: LUIS ENRIQUE Acetaminophen (Ofirmev) 1,000 mg in 100 mls @ 400 mls/hr IV Q8H HUNG Stop: 11/18/24 16:23 Last Infusion: 11/15/24 18:08 Dose: Infused Documented By: LUIS ENRIQUE Admin: 11/15/24 17:44 Dose: 400 mls/hr Documented By: MIREILLE Phenytoin 100 mg/ Syringe 2 mls @ 1 mls/min IV QID HUNG Stop: 12/15/24 16:59 Last Admin: 11/15/24 17:41 Dose: 1 mls/min Documented By: MIREILLE Miscellaneous (Icu Protocol For Hyperglycemia) 1 each N/A ACHS [facility] Stop: 11/17/24 16:29 Last Admin: 11/15/24 17:54 Dose: Not Given Documented By: LUIS ENRIQUE Propofol (Propofol Bolus From Bag) 20 mg IV Q5M PRN PRN Reason: Sedation Stop: 11/18/24 15:58 Last Admin: 11/15/24 16:19 Dose: 20 mg Documented By: DEAN Co-signed By: LUIS ENRIQUE Sodium Chloride (Sodium Chloride 0.9% 10ml Flush) 20 ml IV QID HUNG Stop: 12/15/24 16:59 Last Admin: 11/15/24 17:42 Dose: 20 ml Documented By: MIREILLE Discontinued Medications Bupivacaine HCl (Bupivacaine 0.5 % 5 Mg/1 Ml Mpf 30ml Vial) Confirm Administered Dose 30 ml .ROUTE .STK-MED ONE Stop: 11/15/24 12:46 Last Admin: 11/15/24 15:12 Dose: 20 ml Documented By: [id number] Fentanyl Citrate (Fentanyl Citrate 2,500 Mcg/250 Ml Bag) Confirm Administered Dose 2,500 mcg IV .STK-MED ONE Stop: 11/15/24 16:07 Last Admin: 11/15/24 16:45 Dose: Not Given Documented By: AMS Sodium Chloride (Nss) 1,000 mls @ 999 mls/hr IV .Q1H1M HUNG Stop: 11/15/24 10:45 Last Infusion: 11/15/24 10:59 Dose: Infused Documented By: Admin: 11/15/24 09:47 Dose: 999 mls/hr Documented By: TNK Acetaminophen (Ofirmev) 1,000 mg in 100 mls @ 400 mls/hr IV NOW STA Stop: 11/15/24 10:04 Last Infusion: 11/15/24 10:19 Dose: Infused Documented By: amg Admin: 11/15/24 09:55 Dose: 400 mls/hr Documented By: TNK Sodium Chloride (Nss) 1,000 mls @ 999 mls/hr IV .Q1H1M ONE Stop: 11/15/24 10:50 Last Infusion: 11/15/24 11:35 Dose: Infused Documented By: Admin: 11/15/24 09:55 Dose: 999 mls/hr Documented By: TNK Cefepime HCl (Maxipime 2000mg) 2,000 mg in 20 mls @ 5 mls/min IV NOW STA; Protocol Stop: 11/15/24 09:55 Last Admin: 11/15/24 10:36 Dose: 5 mls/min Documented By: martin Piperacillin Sod/Tazobactam Sod (Zosyn) 4.5 gm in 100 mls @ 200 mls/hr IV NOW STA; Protocol Stop: 11/15/24 12:43 Last Infusion: 11/15/24 17:14 Dose: Infused Documented By: LUIS ENRIQUE Admin: 11/15/24 14:08 Dose: 200 mls/hr Documented By: PACO Lactated Ringer's (Lr) 500 mls @ 999 mls/hr IV .Q31M ONE Stop: 11/15/24 19:06 Last Admin: 11/15/24 18:43 Dose: 999 mls/hr Documented By: LUIS ENRIQUE Lidocaine/Epinephrine (Lidocaine 1%/Epinephrine 1:100,000 50 Ml Vial) Confirm Administered Dose 20 ml .ROUTE .STK-MED ONE Stop: 11/15/24 12:46 Last Admin: 11/15/24 15:13 Dose: 20 ml Documented By: [id number] Lidocaine/Epinephrine (Lidocaine 1%/Epinephrine 1:100,000 50 Ml Vial) Confirm Administered Dose 20 ml .ROUTE .STK-MED ONE Stop: 11/15/24 13:28 Last Admin: 11/15/24 15:14 Dose: Not Given Documented By: ED Critical Care Time Critical Care Time: Yes Total Critical Care Time: 77 I have personally spent greater than 77 minutes of critical care time in the direct management of this patient. This includes bedside care, interpretation of diagnostic studies, and testing, discussion with consultants, patient, and family members, and other required patient management activities. This 77 minutes is in excess of all separately billable procedures. Medical Decision Making Laboratory Data Attestation: I reviewed the patient's lab results. 11/15/24 16:54 11/15/24 16:54 Lab Results 11/15/24 11/15/24 11/15/24 Range/Units 09:27 09:32 09:39 WBC 8.16 (4.8-10.8) K/ul RBC 6.20 H (4.70-6.10) M/uL Hgb 17.7 (14.0-18.0) g/dl POC Hgb 18.0 (14.0-18.0) g/dl Hct 51.0 (42.0-52.0) % POC Hct 53 H (42-52) % MCV 82.3 (80.0-100.0) fL MCH 28.5 (25.0-34.0) pg MCHC 34.7 (32.0-36.0) g/dL RDW Std Deviation 37.2 (36.4-46.3) fL RDW Coeff of Igor 12.5 (11.5-14.5) % Plt Count 352 (130-400) K/uL MPV 10.0 (9.4-12.4) fL Neutrophils % (Manual) 60 % Lymphocytes % (Manual) 14 % Monocytes % (Manual) 1 % Metamyelocytes % (Man) 3 % Neutrophils # (Manual) 4.90 (1.40-6.50) K/uL Total Absolute Neuts 4.90 (1.4-6.5) K/uL Lymphocytes # (Manual) 1.14 L (1.2-3.4) K/uL Total Abs Lymphocytes 2.94 (1.2-3.4) K/uL Monocytes # (Manual) 0.08 L (0.11-0.59) K/uL Metamyelocytes # (Man) 0.24 H (0-0) K/uL Large Granular Lymphs 22 % # Lrg Granular Lymphs 1.80 K/uL Toxic Granulation 1+ Toxic Vacuolation 1+ Echinocytes 1+ PT 13.5 H (9.0-12.0) Seconds INR 1.3 H (0.9-1.1) APTT 29 (21-31) Seconds PTT Ratio 1.1 VBG pH (7.36-7.41) VBG pCO2 (38-50) mmHg VBG pO2 mmHg VBG HCO3 mmol/L VBG O2 Saturation % VBG Base Excess mEq/L POC Sodium 130 L (135-144) mmol/L Sodium 132 L (136-145) mmol/L POC Potassium 3.2 L (3.3-5.0) mmol/L Potassium 4.0 (3.5-5.1) mmol/L POC Chloride 86 L (101-112) mmol/L Chloride 77 L (98-107) mmol/L Carbon Dioxide 27 (21-32) mmol/L POC Total CO2 26 (24-31) mmol/L Anion Gap 28 H (3-11) POC Anion Gap 23.0 (16-25) mmol/L POC BUN 58 H (7-18) mg/dl BUN 58 H (6-23) mg/dl Creatinine 5.18 H* (0.6-1.4) mg/dl POC Creatinine 5.4 H* (0.6-1.3) mg/dl Est Cr Clr Drug Dosing 13.9 ml/min eGFR 11.75 BUN/Creatinine Ratio 11.2 (10-20) Glucose 201 H (70-99(Fasting)) mg/dl POC Glucose (other) 199 H (70-99) mg/dl Lactate 10.7 H* (0.4-2.0) mmol/L Calcium 9.8 (8.6-10.3) mg/dl POC Ioniz Calcium Marissa 0.91 L (1.12-1.32) mmol/l Magnesium 2.1 (1.7-2.4) mg/dl Total Bilirubin 2.8 H (0.2-1.0) mg/dl Direct Bilirubin 1.6 H (0-0.2) mg/dl AST 94 H (13-39) U/L ALT 83 H (7-52) U/L Alkaline Phosphatase 43 (34-104) U/L Troponin I High Sens 65.0 H* (0-20) pg/ml Total Protein 8.0 (6.0-8.3) gm/dl Albumin 4.1 (3.4-5.0) gm/dl Procalcitonin 15.40 H (0-0.5) ng/ml Adenovirus (PCR) Not Detected (NotDetected) B. pertussis DNA (PCR) Not Detected (NotDetected) B.parapertussis DNA PCR Not Detected (NotDetected) C. pneumoniae DNA (PCR) Not Detected (NotDetected) Coronavirus OC43 (PCR) Not Detected (NotDetected) Coronavirus HKU1 (PCR) Not Detected (NotDetected) Coronavirus 229E (PCR) Not Detected (NotDetected) SARS-CoV-2 (PCR) Not Detected (NotDetected) Coronavirus NL63 (PCR) Not Detected (NotDetected) Human Metapneumovir PCR Not Detected (NotDetected) Influenza Type A (PCR) Not Detected (NotDetected) Influenza Type B (PCR) Not Detected (NotDetected) M. pneumoniae (PCR) Not Detected (NotDetected) Parainfluenza 1 (PCR) Not Detected (NotDetected) Parainfluenza 2 (PCR) Not Detected (NotDetected) Parainfluenza 3 (PCR) Not Detected (NotDetected) Parainfluenza 4 (PCR) Not Detected (NotDetected) RSV (PCR) Not Detected (NotDetected) Entero/Rhino (PCR) Not Detected (NotDetected) 11/15/24 11/15/24 Range/Units 10:36 11:35 WBC (4.8-10.8) K/ul RBC (4.70-6.10) M/uL Hgb (14.0-18.0) g/dl POC Hgb (14.0-18.0) g/dl Hct (42.0-52.0) % POC Hct (42-52) % MCV (80.0-100.0) fL MCH (25.0-34.0) pg MCHC (32.0-36.0) g/dL RDW Std Deviation (36.4-46.3) fL RDW Coeff of Igor (11.5-14.5) % Plt Count (130-400) K/uL MPV (9.4-12.4) fL Neutrophils % (Manual) % Lymphocytes % (Manual) % Monocytes % (Manual) % Metamyelocytes % (Man) % Neutrophils # (Manual) (1.40-6.50) K/uL Total Absolute Neuts (1.4-6.5) K/uL Lymphocytes # (Manual) (1.2-3.4) K/uL Total Abs Lymphocytes (1.2-3.4) K/uL Monocytes # (Manual) (0.11-0.59) K/uL Metamyelocytes # (Man) (0-0) K/uL Large Granular Lymphs % # Lrg Granular Lymphs K/uL Toxic Granulation Toxic Vacuolation Echinocytes PT (9.0-12.0) Seconds INR (0.9-1.1) APTT (21-31) Seconds PTT Ratio VBG pH 7.44 H (7.36-7.41) VBG pCO2 44 (38-50) mmHg VBG pO2 45 mmHg VBG HCO3 30 mmol/L VBG O2 Saturation 73.0 % VBG Base Excess 5.0 mEq/L POC Sodium (135-144) mmol/L Sodium (136-145) mmol/L POC Potassium (3.3-5.0) mmol/L Potassium (3.5-5.1) mmol/L POC Chloride (101-112) mmol/L Chloride (98-107) mmol/L Carbon Dioxide (21-32) mmol/L POC Total CO2 (24-31) mmol/L Anion Gap (3-11) POC Anion Gap (16-25) mmol/L POC BUN (7-18) mg/dl BUN (6-23) mg/dl Creatinine (0.6-1.4) mg/dl POC Creatinine (0.6-1.3) mg/dl Est Cr Clr Drug Dosing ml/min eGFR BUN/Creatinine Ratio (10-20) Glucose (70-99(Fasting)) mg/dl POC Glucose (other) (70-99) mg/dl Lactate 4.3 H* (0.4-2.0) mmol/L Calcium (8.6-10.3) mg/dl POC Ioniz Calcium Marissa (1.12-1.32) mmol/l Magnesium (1.7-2.4) mg/dl Total Bilirubin (0.2-1.0) mg/dl Direct Bilirubin (0-0.2) mg/dl AST (13-39) U/L ALT (7-52) U/L Alkaline Phosphatase (34-104) U/L Troponin I High Sens 99.8 H* D (0-20) pg/ml Total Protein (6.0-8.3) gm/dl Albumin (3.4-5.0) gm/dl Procalcitonin (0-0.5) ng/ml Adenovirus (PCR) (NotDetected) B. pertussis DNA (PCR) (NotDetected) B.parapertussis DNA PCR (NotDetected) C. pneumoniae DNA (PCR) (NotDetected) Coronavirus OC43 (PCR) (NotDetected) Coronavirus HKU1 (PCR) (NotDetected) Coronavirus 229E (PCR) (NotDetected) SARS-CoV-2 (PCR) (NotDetected) Coronavirus NL63 (PCR) (NotDetected) Human Metapneumovir PCR (NotDetected) Influenza Type A (PCR) (NotDetected) Influenza Type B (PCR) (NotDetected) M. pneumoniae (PCR) (NotDetected) Parainfluenza 1 (PCR) (NotDetected) Parainfluenza 2 (PCR) (NotDetected) Parainfluenza 3 (PCR) (NotDetected) Parainfluenza 4 (PCR) (NotDetected) RSV (PCR) (NotDetected) Entero/Rhino (PCR) (NotDetected) Imaging Data Attestation: I personally reviewed and interpreted this imaging study as follows: My Impression: Chest x-ray negative. Airway clear. No pneumothorax. No consolidation. No cardiomegaly or cephalization.. No free air under the diaphragm. No fractures of the skeletal structures. Radiologist's Impression: Chest X-Ray 11/15/24 09:35 XR chest 1V portable CLINICAL HISTORY: Sepsis COMPARISON STUDY: None FINDINGS: There is cardiomegaly without pulmonary vascular congestion. Inspiration is shallow which limits the exam. There is mild stranding in the lung bases. No other consolidation or pleural effusion seen. No pneumothorax. IMPRESSION: Likely mild lung base atelectasis. ACT 112: Negative or not required by law. Electronically signed by: Leonard Lozano M.D. 11/15/2024 9:50 AM Abdomen/Pelvis CT 11/15/24 09:[address] WITHOUT CONTRAST CT DOSE: 2429.67 mGy.cm HISTORY: uti flank pain TECHNIQUE: Multiaxial CT images of the abdomen and pelvis were performed without contrast. A dose lowering technique was utilized adhering to the principles of ALARA. COMPARISON STUDY: None FINDINGS: There is reticular and patchy opacity in the lower lobes which could represent pneumonia or atelectasis. ABDOMEN: Liver, gallbladder, spleen, pancreas, and adrenal glands have an unremarkable noncontrast appearance. Kidneys show no hydronephrosis or calculi. There are mild atherosclerotic calcifications. No abdominal aortic aneurysm. There is severe distention of the stomach with retained fluid and food. There is distention of the duodenum, and jejunum measuring up to 5 cm diameter. At the transition zone to normal caliber small bowel at the lateral right mid abdomen series 9 Image 256 at the distal jejunum/proximal ileum there is a 2.4 cm intraluminal calcification. Small bowel is decompressed beyond that point. Pelvis: There is no colonic distention. There is sigmoid diverticulosis without evidence of acute diverticulitis. Normal appendix. There is trace scattered free fluid. No free air, or abscess. No enlarged adenopathy. Dugan catheter is present and the urinary bladder is nondistended. There is increased density within the urinary bladder suggesting clot. Prostate is enlarged. Osseous structures: There is mild lumbar degenerative disc disease. There are mild degenerative changes at the hips. IMPRESSION: 1. Small bowel obstruction caused by an intraluminal calcification at the distal jejunum/proximal ileum. 2. Pneumonia versus atelectasis at the lung bases. 3. Otherwise as described. ACT 112: Negative or not required by law. The above report was generated using voice recognition software. It may contain grammatical, syntax or spelling errors. Electronically signed by: Leonard Lozano M.D. 11/15/2024 10:[address] 11/15/24 09:36 CT head/brain wo con CLINICAL HISTORY: ams. TECHNIQUE: Multiple axial CT images of the head were obtained without contrast. A dose lowering technique was utilized adhering to the principles of ALARA. COMPARISON: None FINDINGS: There is mild motion artifact. No intracranial hemorrhage seen. No mass effect, midline shift, or hydrocephalus. There are mild chronic small vessel ischemic changes. No skull fracture seen. IMPRESSION: No acute findings. ACT 112: Negative or not required by law. The above report was generated using voice recognition software. It may contain grammatical, syntax or spelling errors. Electronically signed by: Leonard Lozano M.D. 11/15/2024 10:50 AM KUB X-Ray 11/15/24 12:18 KUB HISTORY: ng placement COMPARISON STUDY: CT earlier today FINDINGS: Nasogastric tube tip is in the distal body of the stomach. There is stable severe gastric and upper abdominal small bowel distention. IMPRESSION: Nasogastric tube tip is in the distal body of the stomach. ACT 112: Negative or not required by law. The above report was generated using voice recognition software. It may contain grammatical, syntax or spelling errors. Electronically signed by: Leonard Lozano M.D. 11/15/2024 12:38 PM ECG Data Attestation: I personally reviewed and interpreted this ECG as follows: Rate (beats per minute): 122 Rhythm: + normal sinus ECG Intervals/blocks: + Normal VA and + Normal QT-c ECG ST segments: + Normal ST segments Additional Comments: QRS 74 MDM Narrative 0922: The patient was evaluated in room B1. A complete history and physical exam was performed Cardiac monitoring: An order was placed for continuous cardiac monitoring. The monitor shows a rate of 120 with sinus tachycardia rhythm interpreted by me Patient arrives febrile tachycardic and hypoxic. Supplemental oxygen applied via Ventimask which improved the patient's oxygen saturation. Sepsis protocols were initiated. 0948: Patient's blood pressure improving with IV fluids. Patient's lactic acid is 10. 30 cc/kg normal saline bolus ordered for the patient. Empiric antibiotics cefepime ordered for the patient. Patient's creatinine is elevated. Will conduct CT scans without contrast. 1103: Vital signs stable on supplemental oxygen. CT shows bowel obstruction. Spoke with [facility] who will evaluate the patient. 1220: Patient was eval by general surgery. General surgery states they want to take the patient to the OR. They request that the patient be admitted to medicine. [facility] hospitalist Dr. Farmer was made aware of the patient. Impression & Plan SBO (small bowel obstruction), Hypoxia Discharge Plan Visit Data Chief Complaint: Urinary Symptoms Stated Complaint: UTI, VOMITING CLAMMY WEAK ED Provider: Sergio Franco Discharge Problem: SBO (small bowel obstruction), Hypoxia Patient Disposition: Admitted As Inpatient Condition: Critical Discharge Instructions Interventions: ED Discharge Assessment Last Done: 11/15/24 12:57
[2024-11-15] MEDS: LACTATED RINGER'S 1,000 ML IV SCH (20:02)
[2024-11-15] MEDS: PIPERACILLIN/TAZOBACTAM 4.5 GM/100 ML BAG IV SCH (20:24)
[2024-11-16 05:28] LABS: Anion Gap 16.0 (3-11); Blood Urea Nitrogen 66.0 mg/dl (6-23); Calcium 7.5 mg/dl (8.6-10.3); Carbon Dioxide 29.0 mmol/L (21-32); Chloride 91.0 mmol/L (98-107); Creatinine Clr Calc Pharmacy 16.9 ml/min; Glucose 127.0 mg/dl (70-99(Fasting)); Magnesium 1.7 mg/dl (1.7-2.4); Potassium 3.1 mmol/L (3.5-5.1); Sodium 136.0 mmol/L (136-145)
[2024-11-16 05:41] LABS: INR 1.3 (0.9-1.1); Prothrombin Time 13.5 Seconds (9.0-12.0)
[2024-11-16 05:46] LABS: Dohle Bodies 1+; Hematocrit (blood only) 37.3 % (42.0-52.0); Hemoglobin 13.8 g/dl (14.0-18.0); Immature Granulocytes # (auto) 0.11 K/uL (0.01-0.20); Immature Granulocytes % (auto) 1.8 %; Mean Corpuscular Hemoglobin 29.7 pg (25.0-34.0); Mean Corpuscular Volume 80.4 fL (80.0-100.0); Platelet Count 269 K/uL (130-400); RDW Standard Deviation 36.3 fL (36.4-46.3); Red Blood Count 4.64 M/uL (4.70-6.10); Toxic Vacuolation 1+; White Blood Count 6.25 K/ul (4.8-10.8)
[2024-11-16] MEDS: POTASSIUM CHLORIDE / WTR 10 MEQ/100 ML PLCT IV SCH (06:11)
[2024-11-16] MEDS: MAGNESIUM SULFATE / D5W 1 GM/100 ML BAG IV SCH (06:11)
[2024-11-16] MEDS: ICU ELECTROLYTE REPLACEMENT PROTOCOL SCH (06:38)
--- NOTE | 2024-11-16 07:30 | Hospitalist Progress Note ---
Date of Service November 16, 2024 Assessment & Plan (1) Small bowel obstruction: (2) Urinary symptom or sign: (3) Sepsis: (4) Hypoxia: (5) ROQUE (acute kidney injury): (6) Elevated troponin: (7) Elevated LFTs: (8) Seizures: (9) Chronic kidney disease: (10) Undifferentiated schizophrenia: (11) Autism: (12) Hypothyroidism (acquired): (13) Seizure: (14) Hypocalcemia: (15) Hyperphosphatemia: Plan Pt is a 64 yo male with with PMH of autism, schizophrenia, seizure disorder, hypothyroidism, HLD, GERD and CKD who had exploratory laparotomy for foreign body in ileum( Appeared like Bouncy ball) yesterday. Admitted in ICU in intubated status, sedated with propofol and fentanyl infusion. He was pretty dehydrated before surgery, presented in ROUQE On CKD with very minimum Urine output. Post surgery, Urine output is peaking up. Ceftriaxone and Flagyl coverage for GI infection, looks stable vitals bashir and lab bashir for sepsis. Lactate has already come down as well. #S/P Laparotomy for SBO d/t foreign body D1 s/p emergent exploratory surgery( 11/15/2024) Stable post-op *Surgery recs: Remain NPO Continue NGT to intermittent suction per surgery. Talked to surgery team this AM-- they are concerned about his small bowel being really erythematous ans dilated as seen during surgery. Hence plan to transition oral very slow; recommend NG tube to continue. *Pain mgmt: Dilaudid and Tylenol HUNG. Fentanyl DCed. #Neuro CAM ICU: SARIAH - Propofol and Fentanyl DCed - Seizure disorder- IV Phenytoin 100 mg QID ongoing; AM leve pending; will adjust dose accordingly. Oral med held while NPO. - Anxiety and mood disorder- meds on hold while NPO #Cardiac * Presented in hypovolemia with shock - Hypovolemia likely 2/2 decreased PO. - Dehydration improving with ongoing fluid management: LR 115ml/hr--- changed to 80 ml/hr this AM - Current UO: 75mls /hr. - Echo pending - Troponin: Q 6h check Mildly elevated but trending down, likely demanded ischemia. #Respiratory *Mechanically Ventilated S/P Ex Lap---> Extubated this AM. Post Extubation : BL Lungs clear. SPO2 maintained at 10 L NC. Minimal vent settings-- weaning per ICU team. Chest XR: Mild lung bases atelectasis before ET; will keep eye on lung findings. Recommend chest physiotherapy. #GI/ Hepato *S/p ex-lap with resection and removal of foreign body F/B reanastomosis. - OGT to suction- management per GS - NPO - Continue PPI - Abdomen exam: Stable. - Follow Surgery *Elevated LFTs/INR Likely caused from ischemia secondary to severe dehydration and volume depletion/decreased nutrition - Monitor AM CMP, INR - Consider Vit K supplementation if INR does not resolve #RENAL/ *ROQUE on CKD; Improving. - Cr: 4.26----<5.18 - CrCl: 14.86 - Dugan's insitu - Urine: Protein 2+, RBCs: 6-10, Nitrite Neg, LE: Trace. Likely 2/2 to CKD, does not look like infection. #Electrolytes *Hypokalemia K: 3.1 today--- <3.2 - ICU electrolyte protocol ongoing. - Repeat Electrolytes QAM. *Hyperphosphatemia - PO4: 5.8 - Likely 2/2 to ROQUE, CKD, dehydration - Will repeat at AM. Might need phosphate binder if persistently high. - PTH level AM tomorrow. *Hypocalcemia Ca: improving( 7.5-----< 7.1). Corrected Calcium > 8. - 2/2 to CKD leading to secondary hyperparathyroidism, exacerbated acutely. - Will repeat calcium and Albumin AM. #ENDO * Hx: Hypothyroidism TSH: 1.6(Mar 2024) - Consider if extended NPO- convert Synthroid to IV - Blood sugars stable with ICU glycemic protocol ongoing. #HEME * No acute needs - Transfuse for active bleeding, HGB <7.0 or symptomatic Hb: 13.8 gm% #ID empiric coverage for GI source MRSA nares: Neg Urine CS from urgent care: negative - DC Zosyn and continue Rocephin. - blood cultures : NO GROWTH - pathology pending LINES/IV ACCESS - PIV, OGT, Dugan Continue use of these lines DVT PROPHYLAXIS - SCDS, Hold chemoprophylaxis until hemostasis is ensured Code: Full Admission and Anticipated Discharge Date Admission Date: November 15, 2024 Supervising Physician Co-Signing Physician Notes Dr. Riley was resident physician during care of patient. I separately evaluated patient for [place] portions of the history and the exam. I was present during the critical portion of medical decision making, and I discussed the case with the resident. I generally agree with the findings and plan. Patient was successfully extubated the morning of evaluation. He was awake and did track with his eyes and follow some commands he is typically nonverbal at baseline. He appeared to be in no particular significant distress he did have an abdominal binder on. His pulmonary exam had diminished breath sounds at the bases likely from some splinting which could also be from his abdominal binder or his recent surgery. He had absent bowel sounds. Status post exploratory lap with resection of small bowel due to foreign body obstruction. Continue with supportive care watch for benzodiazepine withdrawal pain control may be challenging as the patient is nonverbal we will need to initiate some of his usual home oral medications once we are sure he can take p.o. well. Many of these medications are directed towards his mental health treatment. Subjective Patient extubated this morning, non verbal. Bedside nurse mentioned he has been stable overnight, with urine output peaking up. Mentioned he is passing 75mls/hour now. No fever, seizure, NPO continued. Review of Systems Review of Systems: As per HPI Physical Exam Physical Exam: General: Lying propped up in bed. Looks overall comfortable. PIV, NC canula, multiple IV drips running. Pneumatic compression in situ in BL legs. Neuro: Responds with head movement to pain and sound, RRR pupil BL, UL LL power 5/5. Can't access sensory status. Chest: Equal chest rise BL, no accessory muscle use, clear on auscultation Bilaterally. Cardiac: [id number],Tele: NSR, no JVD, mild edema peripheral edema. GI: Abdominal binder in place, no soakage noted on visible dressing, bowel sound absent. : Dugan's in-situ with around 50 ml dark urine noted during exam. Results & Data Results & Data Vital Signs (Past 12 Hours) Vital Signs Pulse Resp BP Pulse Ox O2 Del Method FiO2 11/16/24 04:00 50 11/16/24 03:28 104 H 19 94 50 11/16/24 02:15 103 H 16 94 11/16/24 02:12 102 H 16 94 11/16/24 02:10 104/79 11/16/24 02:00 115/84 11/16/24 01:57 101 H 16 94 11/16/24 01:45 101 H 16 94 11/16/24 01:40 109/71 11/16/24 01:33 102 H 16 94 11/16/24 01:30 102 H 16 94 11/16/24 01:30 103/82 11/16/24 01:15 102 H 16 94 11/16/24 01:10 106/76 11/16/24 01:00 116/79 11/16/24 00:50 110/74 11/16/24 00:45 101 H 16 94 11/16/24 00:40 110/80 11/16/24 00:33 102 H 16 94 11/16/24 00:30 102 H 16 94 11/16/24 00:30 106/79 11/16/24 00:20 110/80 11/16/24 00:18 103 H 16 94 11/16/24 00:10 105/81 11/16/24 00:09 102 H 16 94 11/16/24 00:00 108/75 11/16/24 00:00 50 11/15/24 23:55 103 H 11/15/24 23:54 103 H 16 89 L 11/15/24 23:51 103 H 16 94 11/15/24 23:50 114/79 11/15/24 23:39 104 H 16 94 11/15/24 23:36 103 H 16 94 11/15/24 23:30 114/85 11/15/24 23:27 102 H 16 94 11/15/24 23:20 112/80 11/15/24 23:15 102 H 16 94 11/15/24 23:10 103/78 11/15/24 23:09 103 H 16 94 11/15/24 23:04 103 H 16 94 50 11/15/24 23:03 103 H 16 94 11/15/24 23:00 101/79 11/15/24 22:51 102 H 16 94 11/15/24 22:50 110/81 11/15/24 22:42 102 H 16 94 11/15/24 22:40 106/81 11/15/24 22:39 102 H 16 94 11/15/24 22:33 102 H 16 94 11/15/24 22:30 104/75 11/15/24 22:18 100 H 16 94 11/15/24 22:15 93 H 16 94 11/15/24 22:10 109/83 11/15/24 22:09 101 H 16 94 11/15/24 22:06 100 H 16 94 11/15/24 21:57 101 H 16 94 11/15/24 21:40 112/74 11/15/24 21:39 99 H 16 95 11/15/24 21:30 102/79 11/15/24 21:30 94 H 16 94 11/15/24 21:20 100/73 11/15/24 21:15 98 H 16 94 11/15/24 21:10 97/71 L 11/15/24 21:09 98 H 16 94 11/15/24 21:00 98/72 L 11/15/24 21:00 97 H 16 93 11/15/24 20:50 97/72 L 11/15/24 20:42 98 H 16 94 11/15/24 20:40 100/74 11/15/24 20:33 95 H 16 94 11/15/24 20:30 113/78 11/15/24 20:27 96 H 16 94 11/15/24 20:20 102/75 11/15/24 20:18 95 H 16 94 11/15/24 20:10 98/78 L 11/15/24 20:08 95 H 16 94 50 11/15/24 20:03 95 H 16 94 11/15/24 20:00 Mechanical Vent 11/15/24 20:00 101/72 11/15/24 20:00 95 H 16 94 11/15/24 20:00 50 11/15/24 19:50 96/72 L 11/15/24 19:48 93 H 16 95 11/15/24 19:42 92 H 16 95 11/15/24 19:40 108/72 11/15/24 19:30 105/72 Resident Activity Tracking Resident Involvement: Resident Care Provided Care Provided: Adult Hospital Medicine (9) Chronic kidney disease Chronic kidney disease stage: unspecified stage Qualified Code(s): N18.9 - Chronic kidney disease, unspecified
[2024-11-16] MEDS: PANTOprazole 40 MG/10 ML SYR IV SCH (07:40)
--- NOTE | 2024-11-16 08:26 | Critical Care Consultation ---
Date of Consultation November 16, 2024 History of Present Illness Attending Physician: Anthony Lee MD Allergies Allergy/AdvReac Type Severity Reaction Status Date / Time No Known Allergies Allergy Verified 11/14/24 09:50 Home Medications Medication Instructions Recorded Confirmed Type fenofibrate 160 mg tablet 160 mg PO QAM #90 tabs 04/06/24 11/15/24 Rx diaper,brief,adult,disposable #100 ea 04/17/24 11/14/24 Rx mirtazapine 45 mg tablet 45 mg PO HS #90 tabs 04/29/24 11/15/24 Rx multivitamin-iron 9 mg-folic acid 1 tab PO QAM #90 tabs 04/29/24 11/15/24 Rx 400 mcg-calcium and minerals tablet risperidone 0.25 mg tablet 0.25 mg PO QAM Schizophrenia #90 05/21/24 11/15/24 Rx tabs hydroxyzine pamoate 50 mg capsule 50 mg PO TID #270 caps 05/25/24 11/15/24 Rx risperidone 1 mg tablet (Risperdal) 1 mg PO HS #90 tabs 05/25/24 11/15/24 Rx famotidine 40 mg tablet 40 mg PO QAM GERD #90 tabs 06/15/24 11/15/24 Rx sertraline 50 mg tablet 50 mg PO QAM #90 tabs 06/16/24 11/15/24 Rx phenytoin sodium extended 100 mg 200 mg (2 x 100 mg) PO BID 06/25/24 11/15/24 Rx capsule EPILEPSY #360 caps propranolol 20 mg tablet 20 mg PO TID Epilepsy #270 tabs 09/08/24 11/15/24 Rx clonazepam 1 mg tablet 1 mg PO QID #112 tabs 10/16/24 11/15/24 Rx levothyroxine 50 mcg tablet 50 mcg PO QAM Hypothyroid #90 tabs 10/16/24 11/15/24 Rx (Synthroid) cholecalciferol (vitamin D3) 50 50 mcg PO DAILY #90 caps 10/29/24 11/15/24 Rx mcg (2,000 unit) capsule cephalexin 500 mg capsule 500 mg PO TID 7 days #21 caps 11/14/24 11/15/24 Rx Patient History Medical History Undifferentiated schizophrenia Autism per caregiver "he is mostly non-verbal, except for simple words and phrases" History of rubella remote hx Gastritis hx History of pica Surgical History History of cataract surgery right Hx of tooth extraction Family History Denies family history of Ovarian cancer Prostate cancer Myocardial infarction Breast cancer Colorectal cancer Social History Smoking Status: Unknown if ever smoked Second Hand Exposure: No; Do You Dip or Chew Tobacco: No; Hx Alcohol Use: No (unknown) Hx Substance Use: No (unknown) Preferred Language: Yakut Communication Ability: Effective Communication Ability Comment: Pt sedated/intubated [employer] Required: No Beliefs That Will Affect Care: None Current Living Situation: Other Current Living Situation Comment: senior living current occupational status: disabled Feels Safe at Home: Yes Childhood Exposure to Second-Hand Smoke: No Diet: regular caffeine: Yes Dental Care, Regularly: Yes Physical Activity Frequency: Daily Physical Activity Frequency Comment: Walking Seatbelt Use: always Sunscreen Use: Yes Assistive Devices: None Results & Data Results & Data Vital Signs (Past 12 Hours) Vital Signs Pulse Resp BP Pulse Ox O2 Del Method FiO2 11/16/24 04:00 50 11/16/24 03:28 104 H 19 94 50 11/16/24 02:15 103 H 16 94 11/16/24 02:12 102 H 16 94 11/16/24 02:10 104/79 11/16/24 02:00 115/84 11/16/24 01:57 101 H 16 94 11/16/24 01:45 101 H 16 94 11/16/24 01:40 109/71 11/16/24 01:33 102 H 16 94 11/16/24 01:30 102 H 16 94 11/16/24 01:30 103/82 11/16/24 01:15 102 H 16 94 11/16/24 01:10 106/76 11/16/24 01:00 116/79 11/16/24 00:50 110/74 11/16/24 00:45 101 H 16 94 11/16/24 00:40 110/80 11/16/24 00:33 102 H 16 94 11/16/24 00:30 102 H 16 94 11/16/24 00:30 106/79 11/16/24 00:20 110/80 11/16/24 00:18 103 H 16 94 11/16/24 00:10 105/81 11/16/24 00:09 102 H 16 94 11/16/24 00:00 108/75 11/16/24 00:00 50 11/15/24 23:55 103 H 11/15/24 23:54 103 H 16 89 L 11/15/24 23:51 103 H 16 94 11/15/24 23:50 114/79 11/15/24 23:39 104 H 16 94 11/15/24 23:36 103 H 16 94 11/15/24 23:30 114/85 11/15/24 23:27 102 H 16 94 11/15/24 23:20 112/80 11/15/24 23:15 102 H 16 94 11/15/24 23:10 103/78 11/15/24 23:09 103 H 16 94 11/15/24 23:04 103 H 16 94 50 11/15/24 23:03 103 H 16 94 11/15/24 23:00 101/79 11/15/24 22:51 102 H 16 94 11/15/24 22:50 110/81 11/15/24 22:42 102 H 16 94 11/15/24 22:40 106/81 11/15/24 22:39 102 H 16 94 11/15/24 22:33 102 H 16 94 11/15/24 22:30 104/75 11/15/24 22:18 100 H 16 94 11/15/24 22:15 93 H 16 94 11/15/24 22:10 109/83 11/15/24 22:09 101 H 16 94 11/15/24 22:06 100 H 16 94 11/15/24 21:57 101 H 16 94 11/15/24 21:40 112/74 11/15/24 21:39 99 H 16 95 11/15/24 21:30 102/79 11/15/24 21:30 94 H 16 94 11/15/24 21:20 100/73 11/15/24 21:15 98 H 16 94 11/15/24 21:10 97/71 L 11/15/24 21:09 98 H 16 94 11/15/24 21:00 98/72 L 11/15/24 21:00 97 H 16 93 11/15/24 20:50 97/72 L 11/15/24 20:42 98 H 16 94 11/15/24 20:40 100/74 11/15/24 20:33 95 H 16 94 11/15/24 20:30 113/78 11/15/24 20:27 96 H 16 94 11/15/24 20:20 102/75 11/15/24 20:18 95 H 16 94 11/15/24 20:10 98/78 L 11/15/24 20:08 95 H 16 94 50 11/15/24 20:03 95 H 16 94 11/15/24 20:00 Mechanical Vent 11/15/24 20:00 101/72 11/15/24 20:00 95 H 16 94 11/15/24 20:00 50 Coding
--- NOTE | 2024-11-16 08:29 | Critical Care Consultation ---
Date of Consultation November 16, 2024 Assessment & Plan (1) SBO (small bowel obstruction): (2) Seizures: (3) Elevated LFTs: (4) ROQUE (acute kidney injury): Plan Eliel Cedeno is a 64 Y O Male with PMH of Seizure disorder, Generalized anxiety disorder, CKD III, Hyperlipidemia, Undifferentiated Schizophrenia, Autism(non verbal mostly), GERD, Hypothyroidism presented with nausea ; vomiting and absence of Bowel movement . Was found to have Small Bowel Obstruction On CT scan with possibility for bowel ischemia. Exploratory Laparotomy with small bowel resection and anastomosis was done . Foreign body which appearing like Bouncy ball was removed from mid ileum. Patient was shifted to ICU post procedure. Successfully extubated today. Will remain on ICU service today for monitoring. Neuro Successfully extubated this morning. Patient seems to be back to his baseline. Discontinued propofol and Fentanyl H/O seizure: Patient on propranolol 20mg TID at home. Will hold this in setting of NPO status of patient. Scheduled IV Phenytoin while on hospital. Pending Phenytoin level this AM H/O Anxiety and Depression: On Clonazepam, Mirtazapine, hydroxyzine and Sertraline at home. Continue to hold in setting of NPO status H/O Schizophrenia: On Risperidone at home. Continue hold Cardiac Initial presentation concerning for hypovolemic shock likely secondary to vomiting. Lactate elevated to 10.7 initially. Lactate normalized after fluid resuscitation. Continue fluid resuscitation with RL @80ml/hr Urine output: 0.47ml/kg/hr Respiratory Successfully extubated this morning. Patient seems to be back to his baseline. Discontinued propofol and Fentanyl Lungs clear on auscultation after extubation GI S/p ex-lap with resection and removal of foreign body- reanastomosed, abdomen closed OGT tube to Suction as recommended by General Surgery Continue NPO status Follow abdominal exams PPI continue Pain management: Dilaudid and Tylenol RENAL/LYTES - ROQUE on CKD -Creatinine improved to 4.26 from 5.18 - continue with RL 80ml/hr - ICU electrolyte protocol - No acute needs - Dugan to gravity ENDO - No acute needs- Hx: Hypothyroidism - ICU hyperglycemic/hypoglycemic protocol - Consider if extended NPO- convert Synthroid to IV HEME - No acute needs - Transfuse for active bleeding, HGB <7.0 or symptomatic ID Empiric coverage for GI source MRSA nares: Neg Urine CS from urgent care: negative - Downgrade antibiotics coverage.DC Zosyn and start on Rocephin. Add Flagyl for anaerobe coverage - blood cultures : NO GROWTH - pathology pending LINES/IV ACCESS - PIV, , OGT, Dugan Continue use of these lines DVT PROPHYLAXIS - SCDS, Hold chemoprophylaxis until hemostasis is ensured DISPO: ICU while intubated and sedated. Supervising Physician Co-Signing Physician Notes Dr. Riley was resident physician during care of patient. I separately evaluated patient for montes de oca portions of the history and the exam. I was present during the critical portion of medical decision making, and I discussed the case with the resident. I generally agree with the findings and plan. Transition to IV Dilaudid and scheduled Tylenol for pain control. Discontinue Zosyn does not need expanded coverage transition to Rocephin and Flagyl for 7 days based off of fluid characteristics. There is not a wound culture in the current labs therefore for prudence we will continue for 7 days of antibiotics. Adjusting phenytoin infusion times as well as checking level given renal dysfunction. Making adequate urine at this time decreasing IV fluid to 80 mL/h, encourage out of bed to chair, currently tolerating SCDs will encourage chemoprophylaxis postop day 1. OG tube was removed with extubation moderate amount output will continue to watch for return of bowel function maintain n.p.o. status. Successfully liberated from the ventilator today. I have personally spent 35 minutes of critical care time in the direct management of this patient. This is a life/limb threatening event. This includes time spent evaluating patient, direct bedside care, chart review, placing orders, interpretation of diagnostic studies, discussion with consultants, patient, and/or family members regarding treatment decisions, as well as other required patient management activities. This time is exclusive of all separately billable procedures, and teaching time and separate from and in addition to any other critical care service time. History of Present Illness Reason for Consultation: s/p ex lap small bowel resection with anastamosis Attending Physician: Anthony Lee MD History of Present Illness 64 YOM with history of autism, schizophrenia, Hypothyroidism, HLD, GERD. Presented to the ER for progressive nausea, vomitting, since 11/12. Imaging was obtained and concern for small bowel obstruction. He was urgently taken to the OR by Dr. Stewart of General Surgery. On exploration noted to have hyperemic and edematous proximal small bowel, further investigation appeared to be secondary to foriegn body, this was removed and appeared to be a bouncy ball by report. He was reanastomosed, and his abdomen was closed. He was left intubated and returned to the ICU. He is on no vasoactive medicaitons at this time. Tolerating sedation well, OGT to suction, Dugan with minimal urine output. Continue to monitor overnight, continue supportive care and resuscitation as required for MAPS and UO. Allergies Allergy/AdvReac Type Severity Reaction Status Date / Time No Known Allergies Allergy Verified 11/14/24 09:50 Home Medications Medication Instructions Recorded Confirmed Type fenofibrate 160 mg tablet 160 mg PO QAM #90 tabs 04/06/24 11/15/24 Rx diaper,brief,adult,disposable #100 ea 04/17/24 11/14/24 Rx mirtazapine 45 mg tablet 45 mg PO HS #90 tabs 04/29/24 11/15/24 Rx multivitamin-iron 9 mg-folic acid 1 tab PO QAM #90 tabs 04/29/24 11/15/24 Rx 400 mcg-calcium and minerals tablet risperidone 0.25 mg tablet 0.25 mg PO QAM Schizophrenia #90 05/21/24 11/15/24 Rx tabs hydroxyzine pamoate 50 mg capsule 50 mg PO TID #270 caps 05/25/24 11/15/24 Rx risperidone 1 mg tablet (Risperdal) 1 mg PO HS #90 tabs 05/25/24 11/15/24 Rx famotidine 40 mg tablet 40 mg PO QAM GERD #90 tabs 06/15/24 11/15/24 Rx sertraline 50 mg tablet 50 mg PO QAM #90 tabs 06/16/24 11/15/24 Rx phenytoin sodium extended 100 mg 200 mg (2 x 100 mg) PO BID 06/25/24 11/15/24 Rx capsule EPILEPSY #360 caps propranolol 20 mg tablet 20 mg PO TID Epilepsy #270 tabs 09/08/24 11/15/24 Rx clonazepam 1 mg tablet 1 mg PO QID #112 tabs 10/16/24 11/15/24 Rx levothyroxine 50 mcg tablet 50 mcg PO QAM Hypothyroid #90 tabs 10/16/24 11/15/24 Rx (Synthroid) cholecalciferol (vitamin D3) 50 50 mcg PO DAILY #90 caps 10/29/24 11/15/24 Rx mcg (2,000 unit) capsule cephalexin 500 mg capsule 500 mg PO TID 7 days #21 caps 11/14/24 11/15/24 Rx Patient History Medical History Undifferentiated schizophrenia Autism per caregiver "he is mostly non-verbal, except for simple words and phrases" History of rubella remote hx Gastritis hx History of pica Surgical History History of cataract surgery right Hx of tooth extraction Family History Denies family history of Ovarian cancer Prostate cancer Myocardial infarction Breast cancer Colorectal cancer Social History Smoking Status: Unknown if ever smoked Second Hand Exposure: No; Do You Dip or Chew Tobacco: No; Hx Alcohol Use: No (unknown) Hx Substance Use: No (unknown) Preferred Language: Slovenian Communication Ability: Effective Communication Ability Comment: Pt sedated/intubated Air Conditioning Supervisor Required: No Beliefs That Will Affect Care: None Current Living Situation: Other Current Living Situation Comment: prison current occupational status: disabled Feels Safe at Home: Yes Childhood Exposure to Second-Hand Smoke: No Diet: regular caffeine: Yes Dental Care, Regularly: Yes Physical Activity Frequency: Daily Physical Activity Frequency Comment: Walking Seatbelt Use: always Sunscreen Use: Yes Assistive Devices: None Review of Systems Review of Systems: As per HPI Physical Exam Physical Exam: Constitutional: Patient extubated 1 hour ago, On 5l O2 via nasal cannula HEENT: Atraumatic, Normocephalic, No conjunctival injection CVS: S1 S2 no murmur, Regular Rhythm, no LE edema Respiratory: BL equal air entry with NVBS. No rhonchi, wheezes, or crackles. No increased work of breathing GI: Abdominal binder in place, no discharge or drainage MSK: No gross deformities noted Skin: Warm, Dry, No rashes Genitourinary: Has Foleys in place; draining dark yellow urine Results & Data Results & Data Vital Signs (Past 12 Hours) Vital Signs Pulse Resp BP Pulse Ox FiO2 11/16/24 04:00 50 11/16/24 03:28 104 H 19 94 50 11/16/24 02:15 103 H 16 94 11/16/24 02:12 102 H 16 94 11/16/24 02:10 104/79 11/16/24 02:00 115/84 11/16/24 01:57 101 H 16 94 11/16/24 01:45 101 H 16 94 11/16/24 01:40 109/71 11/16/24 01:33 102 H 16 94 11/16/24 01:30 102 H 16 94 11/16/24 01:30 103/82 11/16/24 01:15 102 H 16 94 11/16/24 01:10 106/76 11/16/24 01:00 116/79 11/16/24 00:50 110/74 11/16/24 00:45 101 H 16 94 11/16/24 00:40 110/80 11/16/24 00:33 102 H 16 94 11/16/24 00:30 102 H 16 94 11/16/24 00:30 106/79 11/16/24 00:20 110/80 11/16/24 00:18 103 H 16 94 11/16/24 00:10 105/81 11/16/24 00:09 102 H 16 94 11/16/24 00:00 108/75 11/16/24 00:00 50 11/15/24 23:55 103 H 11/15/24 23:54 103 H 16 89 L 11/15/24 23:51 103 H 16 94 11/15/24 23:50 114/79 11/15/24 23:39 104 H 16 94 11/15/24 23:36 103 H 16 94 11/15/24 23:30 114/85 11/15/24 23:27 102 H 16 94 11/15/24 23:20 112/80 11/15/24 23:15 102 H 16 94 11/15/24 23:10 103/78 11/15/24 23:09 103 H 16 94 11/15/24 23:04 103 H 16 94 50 11/15/24 23:03 103 H 16 94 11/15/24 23:00 101/79 11/15/24 22:51 102 H 16 94 11/15/24 22:50 110/81 11/15/24 22:42 102 H 16 94 11/15/24 22:40 106/81 11/15/24 22:39 102 H 16 94 11/15/24 22:33 102 H 16 94 11/15/24 22:30 104/75 11/15/24 22:18 100 H 16 94 11/15/24 22:15 93 H 16 94 11/15/24 22:10 109/83 11/15/24 22:09 101 H 16 94 11/15/24 22:06 100 H 16 94 11/15/24 21:57 101 H 16 94 11/15/24 21:40 112/74 11/15/24 21:39 99 H 16 95 11/15/24 21:30 102/79 11/15/24 21:30 94 H 16 94 11/15/24 21:20 100/73 11/15/24 21:15 98 H 16 94 11/15/24 21:10 97/71 L 11/15/24 21:09 98 H 16 94 11/15/24 21:00 98/72 L 11/15/24 21:00 97 H 16 93 11/15/24 20:50 97/72 L 11/15/24 20:42 98 H 16 94 11/15/24 20:40 100/74 11/15/24 20:33 95 H 16 94 11/15/24 20:30 113/78 Coding Level of Care Code 86664 CRITICAL CARE 1ST 30-74M Diagnoses SBO (small bowel obstruction) K56.609 Seizures R56.9 Elevated LFTs R79.89 ROQUE (acute kidney injury) N17.9
--- NOTE | 2024-11-16 08:29 | Billing Data ---
Date of Service November 16, 2024 Coding Level of Care Code 94272 CRITICAL CARE
--- NOTE | 2024-11-16 10:21 | Surgery Progress Note ---
Date of Service November 16, 2024 Assessment & Plan (1) Small bowel obstruction: Plan: Patient is POD#1 s/p Exploratory Laparotomy, small bowel resection, and anastomosis by Dr. Stewart -Postoperatively patient remained intubated and in ICU. This morning the patient was able to be successfully extubated and he appears to be back to his baseline. -OGT was removed once patient was extubated, recommend placing NGT at this time and placing to low-intermittent suction -Continue NPO for now until return of bowel function, IV hydration, and continue IV antibiotics -Will plan to change outer surgical dressing tomorrow morning -Appreciate critical care and medical service input and recommendations. Surgery to continue to closely follow Admission and Anticipated Discharge Date Admission Date: November 15, 2024 Subjective Patient seen and evaluated at bedside this morning, was able to be extubated, appears to be comfortably. At his baseline (nonverbal) Hemodynamically stable Afebrile , WBC 6.2, continues on IV abx at this time Physical Exam Constitutional: comfortable; no acute distress Pt with Autism and mostly nonverbal Respiratory: normal respiratory effort; no respiratory distress Cardiovascular: Rate/Rhythm: regular rate Gastrointestinal (Abdomen): Abdomen soft, nonstented, does not appear to be uncomfortable with palpation. +Midline surgical dressing in place, c/d /i Skin: no rashes, warm and dry Results & Data Vital Signs (Past 12 Hours) Vital Signs Pulse Resp BP Pulse Ox FiO2 11/16/24 09:06 99 H 14 90 11/16/24 08:00 50 11/16/24 07:20 99 H 17 97 50 11/16/24 04:00 50 11/16/24 03:28 104 H 19 94 50 11/16/24 02:15 103 H 16 94 11/16/24 02:12 102 H 16 94 11/16/24 02:10 104/79 11/16/24 02:00 115/84 11/16/24 01:57 101 H 16 94 11/16/24 01:45 101 H 16 94 11/16/24 01:40 109/71 11/16/24 01:33 102 H 16 94 11/16/24 01:30 102 H 16 94 11/16/24 01:30 103/82 11/16/24 01:15 102 H 16 94 11/16/24 01:10 106/76 11/16/24 01:00 116/79 11/16/24 00:50 110/74 11/16/24 00:45 101 H 16 94 11/16/24 00:40 110/80 11/16/24 00:33 102 H 16 94 11/16/24 00:30 102 H 16 94 11/16/24 00:30 106/79 11/16/24 00:20 110/80 11/16/24 00:18 103 H 16 94 11/16/24 00:10 105/81 11/16/24 00:09 102 H 16 94 11/16/24 00:00 108/75 11/16/24 00:00 50 11/15/24 23:55 103 H 11/15/24 23:54 103 H 16 89 L 11/15/24 23:51 103 H 16 94 11/15/24 23:50 114/79 11/15/24 23:39 104 H 16 94 11/15/24 23:36 103 H 16 94 11/15/24 23:30 114/85 11/15/24 23:27 102 H 16 94 11/15/24 23:20 112/80 11/15/24 23:15 102 H 16 94 11/15/24 23:10 103/78 11/15/24 23:09 103 H 16 94 11/15/24 23:04 103 H 16 94 50 11/15/24 23:03 103 H 16 94 11/15/24 23:00 101/79 11/15/24 22:51 102 H 16 94 11/15/24 22:50 110/81 11/15/24 22:42 102 H 16 94 11/15/24 22:40 106/81 11/15/24 22:39 102 H 16 94 11/15/24 22:33 102 H 16 94 11/15/24 22:30 104/75 PG Care Time/CCT Total # of Minutes Spent Total Time Spent with Patient: Total time spent is greater than 50% in coordination of care (as documented) at patient's floor/unit and/or counseling patient: [place] [address] Post Operative Follow-Up Patient Type Established History Problem Focused Exam Problem Focused Medical Decision Making Straight Forward Diagnoses Small bowel obstruction K56.609
[2024-11-16] MEDS: cefTRIAXone SODIUM 2,000 MG/50 ML BAG IV SCH (10:58)
[2024-11-16] MEDS: metroNIDAZOLE 500 MG/100 ML BAG IV SCH (11:01)
--- NOTE | 2024-11-16 13:01 | XRay Report ---
KUB HISTORY: NG tube check COMPARISON STUDY: 11/15/2024 FINDINGS: Nasogastric tube tip is in the mid body of the stomach. There is small bowel distention yadiel suring up to 5 cm, stable to mildly improved. No gross free air seen. IMPRESSION: Nasogastric tube tip is in the mid body of the stomach. ACT 112: Negative or not required by law. The above report was generated using voice recognition software. It may contain grammatical, syntax o r spelling errors. Electronically signed by: Leonard Lozano M.D. 11/16/2024 12:59 PM
[2024-11-16] MEDS: PHENYTOIN 100 MG in SYRINGE 0 ML IV SCH (15:13)
[2024-11-16] MEDS: SODIUM CHLORIDE 0.9% 10ML FLUSH IV SCH (15:13)
--- NOTE | 2024-11-16 16:57 | XCELERA ---
[id number]
[2024-11-17 05:35] LABS: Alanine Aminotransferase 108.0 U/L (7-52); Albumin Level 2.9 gm/dl (3.4-5.0); Alkaline Phosphatase 28.0 U/L (34-104); Anion Gap 16.0 (3-11); Bilirubin,Total 1.1 mg/dl (0.2-1.0); Blood Urea Nitrogen 55.0 mg/dl (6-23); Calcium 8.2 mg/dl (8.6-10.3); Carbon Dioxide 27.0 mmol/L (21-32); Chloride 93.0 mmol/L (98-107); Creatinine Clr Calc Pharmacy 33.4 ml/min; Glucose 106.0 mg/dl (70-99(Fasting)); Magnesium 2.7 mg/dl (1.7-2.4); Potassium 3.1 mmol/L (3.5-5.1); Sodium 136.0 mmol/L (136-145); Total Protein 6.2 gm/dl (6.0-8.3)
[2024-11-17 05:44] LABS: INR 1.1 (0.9-1.1); Prothrombin Time 11.7 Seconds (9.0-12.0)
[2024-11-17 05:50] LABS: Hematocrit (blood only) 34.8 % (42.0-52.0); Hemoglobin 12.6 g/dl (14.0-18.0); Mean Corpuscular Hemoglobin 29.6 pg (25.0-34.0); Mean Corpuscular Volume 81.7 fL (80.0-100.0); Platelet Count 256 K/uL (130-400); RDW Standard Deviation 38.4 fL (36.4-46.3); Red Blood Count 4.26 M/uL (4.70-6.10); White Blood Count 6.10 K/ul (4.8-10.8)
[2024-11-17] MEDS: POTASSIUM CHLORIDE / WTR 10 MEQ/100 ML PLCT IV SCH (06:01)
[2024-11-17 06:51] LABS: ALC (manual) 2.38 K/uL (1.2-3.4); ANC (manual) 2.93 K/uL (1.4-6.5); RBC Morphology Unremarkable
--- NOTE | 2024-11-17 07:16 | Hospitalist Progress Note ---
Date of Service November 17, 2024 Assessment & Plan (1) Small bowel obstruction: (2) Urinary symptom or sign: (3) Sepsis: (4) Hypoxia: (5) ROQUE (acute kidney injury): (6) Elevated troponin: (7) Elevated LFTs: (8) Seizures: (9) Chronic kidney disease: (10) Undifferentiated schizophrenia: (11) Autism: (12) Hypothyroidism (acquired): (13) Seizure: (14) Hypocalcemia: (15) Hyperphosphatemia: Plan Pt is a 64 yo male with with PMH of autism, schizophrenia, seizure disorder, hypothyroidism, HLD, GERD and CKD who had exploratory laparotomy for foreign body in ileum( Appeared like Bouncy ball) on 08/15/2024. Admitted in ICU post surgery. Has been stable and heading to right direction Post-operatively. Plan to continue care per ICU team. #S/P Laparotomy for SBO d/t foreign body D2 s/p emergent exploratory surgery( 11/15/2024) Stable post-op so far. No s/s of PNE, atelectasis, wound related complications. Post op Hb: 12.6gm%( STABLE) Stable electrolytes with ongoing maintenance fluids. Blood cultures : NO GROWTH Pathology report pending Plan: - Recommend continued chest physiotherapy. *Surgery recs: Remain NPO Continue NGT to intermittent suction per surgery. Significant Green content coming out. Surgery team concerned about his small bowel being really erythematous ans dilated as seen during surgery. Hence plan to transition oral very slow; recommend NG tube to continue. - Pain mgmt: Dilaudid and Tylenol HUNG. Fentanyl DCed. - Post- Op antibiotics: Continue Rocephin and Flagyl for anaerobic coverage. Plan for 7 days( complete on 11/22) unless any change in clinical course. - Continue IV fluid LR. - Anticipating longer NPO status; TPN could be better choice for him; will involve nutrition team on discussion. - Downgrade to PCU status after ICU clearance. #ROQUE on CKD; Improving. - Cr:2.2---< 4.26----<5.18 - CrCl: 33.4---< 17. - Dugan's insitu - Urine: Protein 2+, RBCs: 6-10, Nitrite Neg, LE: Trace. Likely 2/2 to CKD, does not look like infection. Plan: Continue hydration #Deranged LFT/ PT INR *Likely caused from ischemia secondary to severe dehydration and volume depletion/decreased nutrition Improving pattern No suspicious finding on imaging preop. Likely will resolve with time. Repeat LFTs QAM. #Seizure disorder No recent seizure. Home Oral med held while NPO. IV Phenytoin 100 mg QID ongoing; AM level pending; will adjust dose accordingly. #Anxiety and mood disorderr Meds on hold while NPO. ?low dose benzos for possible withdrawal- will consider lye bath operator input. Chronic 1.Hypothyroidism TSH: 1.6(Mar 2024) - Consider if extended NPO- convert Synthroid to IV by 11/21/2024. - Per pharm we can hold Synthroid upto 7 days given 1/2 life of this duration. LINES/IV ACCESS - PIV, NGT, Dugan DVT PROPHYLAXIS - SCDS, will resume LMWH on renal adjusted dose. Code: Full Admission and Anticipated Discharge Date Admission Date: November 15, 2024 Supervising Physician Co-Signing Physician Notes Dr. Riley was resident physician during care of patient. I separately evaluated patient for montes de oca portions of the history and the exam. I was present during the critical portion of medical decision making, and I discussed the case with the resident. I generally agree with the findings and plan. Patient was successfully extubated 11/16 and now continues on [place] oxygen, He was awake and did track with his eyes and follow some commands he is typically nonverbal at baseline. He required replacement of NGT and has moderate bilious ng drainage, this prohibits restarting some po medications that typically help with his mental illness, he however currently is in no particular distress. His pulmonary exam had diminished breath sounds at the bases likely from some splinting which could also be from his abdominal binder or his recent surgery. He had absent bowel sounds. Status post exploratory lap with resection of small bowel due to foreign body obstruction. NGT drainage prevents oral intake, may need to consider ppn or tpn if post op ileus is prolonged. Continue with supportive care watch for benzodiazepine withdrawal Subjective Patient was extubated yesterday, non verbal. Bedside nurse mentioned he has been stable overnight, with urine output peaking up. NG tube was inserted yesterday. Tolerating ok. No fever, seizure, NPO continued. Decreases O2 need. Review of Systems Review of Systems: As per HPI Physical Exam Physical Exam: General: Lying propped up in bed. Looks overall comfortable. O2 delivering via Oxymask. Pneumatic compression in situ in BL legs. Chest: Equal chest rise BL, no accessory muscle use, clear on auscultation Bilaterally. Cardiac: [id number],Tele: NSR, no JVD, mild edema peripheral edema. GI: Abdominal binder in place, no soakage noted on visible dressing, bowel sound absent. : Dugan's in-situ with some urine noted during exam. Neuro: Responds with head movement to pain and sound, RRR pupil BL, UL LL power 5/5. Can't access sensory status. Results & Data Results & Data Vital Signs (Past 12 Hours) Vital Signs Temp Pulse Resp BP Pulse Ox O2 Del Method O2 Flow Rate 11/17/24 05:00 137/80 11/17/24 05:00 92 H 48 H 91 11/17/24 04:18 89 20 94 11/17/24 04:00 124/80 11/17/24 04:00 36.5 C 11/17/24 03:54 88 38 H 94 11/17/24 03:00 89 31 H 92 11/17/24 02:00 90 40 H 92 11/17/24 02:00 127/77 11/17/24 01:03 91 H 45 H 94 11/17/24 01:00 120/81 11/17/24 00:57 90 36 H 94 11/17/24 00:00 88 38 H 92 11/17/24 00:00 125/78 11/16/24 23:39 89 11/16/24 23:00 88 31 H 92 11/16/24 23:00 36.5 C 11/16/24 22:00 92 H 31 H 94 11/16/24 22:00 134/79 11/16/24 21:45 84 34 H 95 11/16/24 21:42 90 32 H 95 11/16/24 21:27 92 H 39 H 95 11/16/24 21:06 92 H 36 H 94 11/16/24 21:00 117/77 11/16/24 20:39 92 H 41 H 93 11/16/24 20:30 93 H 41 H 93 11/16/24 20:27 92 H 37 H 93 11/16/24 20:12 94 H 37 H 94 11/16/24 20:00 125/80 11/16/24 19:58 Oxymask 4 11/16/24 19:42 95 H 43 H 93 11/16/24 19:33 94 H 40 H 93 Resident Activity Tracking Resident Involvement: Resident Care Provided Care Provided: Adult Hospital Medicine (9) Chronic kidney disease Chronic kidney disease stage: unspecified stage Qualified Code(s): N18.9 - Chronic kidney disease, unspecified
[2024-11-17] MEDS: HYDROmorphone INJ 0.5 MG/0.5 ML SYR IV PRN (07:22)
--- NOTE | 2024-11-17 07:33 | Billing Data ---
Date of Service November 17, 2024 Coding Level of Care Code 15308 INT INP/OBS CARE
--- NOTE | 2024-11-17 07:46 | Billing Data ---
Date of Service November 17, 2024 Coding Level of Care Code 45694 SUB INP/OBS CARE
--- NOTE | 2024-11-17 08:21 | Critical Care Progress Note ---
Date of Service November 17, 2024 Assessment & Plan (1) Hyperphosphatemia: (2) Hypocalcemia: (3) SBO (small bowel obstruction): (4) On mechanically assisted ventilation: (5) Seizures: (6) Elevated LFTs: (7) Elevated troponin: (8) ROQUE (acute kidney injury): (9) Small bowel obstruction: (10) Urinary symptom or sign: (11) NEENA (generalized anxiety disorder): (12) Chronic kidney disease: (13) Hyperlipidemia: (14) Undifferentiated schizophrenia: (15) Autism: (16) Hypothyroidism (acquired): (17) Seizure: (18) GERD (gastroesophageal reflux disease): (19) Echolalia: (20) Mood disorder: (21) Diverticulosis: (22) Abnormal thyroid function test: (23) Intellectual disability: (24) Routine health maintenance: (25) Seizure disorder: (26) Encounter for pre-operative examination: (27) Complicated grieving: (28) Encounter for immunization: (29) Eye abnormality: (30) Tick bite of right elbow: (31) Sepsis: (32) Hypoxia: Plan Eliel Cedeno is a 64 Y O Male with PMH of Seizure disorder, Generalized anxiety disorder, CKD III, Hyperlipidemia, Undifferentiated Schizophrenia, Autism(non verbal mostly), GERD, Hypothyroidism presented with nausea ; vomiting and absence of Bowel movement . Was found to have Small Bowel Obstruction On CT scan with possibility for bowel ischemia. Exploratory Laparotomy with small bowel resection and anastomosis was done . Foreign body which appearing like Bouncy ball was removed from mid ileum. Patient was shifted to ICU post procedure. Successfully extubated yesterday. Doing well post extubation. Patient seems to be in his baseline. Stable for downgrade today Neuro Successfully extubated yesterday. Patient seems to be back to his baseline. H/O seizure: Patient on propranolol 20mg TID at home. Will hold this in setting of NPO status of patient. Scheduled IV Phenytoin while on hospital. Pending Phenytoin level this AM H/O Anxiety and Depression: On Clonazepam, Mirtazapine, hydroxyzine and Sertraline at home. Currently on hold because of NPO status of patient. Regarding diet advance, will follow with surgery recommendation. H/O Schizophrenia: On Risperidone at home. Continue hold Cardiac Initial presentation concerning for hypovolemic shock likely secondary to vomiting. Lactate elevated to 10.7 initially. Lactate normalized after fluid resuscitation. Continue fluid resuscitation with RL @80ml/hr given significant NG output. If additional fluid needed will consider transition to Plasma lyte Urine output is improving Respiratory Successfully extubated yesterday Patient seems to be back to his baseline. Discontinued propofol and Fentanyl Lungs clear on auscultation after extubation GI S/p ex-lap with resection and removal of foreign body- reanastomosed, abdomen closed OGT tube to Suction as recommended by General Surgery Continue NPO status. Will follow with surgery recommendation regarding diet advance Follow abdominal exams PPI continue Pain management: Dilaudid and Tylenol RENAL/LYTES - ROQUE on CKD -Creatinine improved significantly to 2.2 from 4.26 yesterday - continue with RL 80ml/hr - ICU electrolyte protocol - No acute needs - Dugan removed ENDO - No acute needs- Hx: Hypothyroidism - ICU hyperglycemic/hypoglycemic protocol - Consider if extended NPO- convert Synthroid to IV HEME - No acute needs - Transfuse for active bleeding, HGB <7.0 or symptomatic ID Empiric coverage for GI source MRSA nares: Neg Urine CS from urgent care: negative - Downgrade antibiotics coverage. Continue Rocephin and Metronidazole - blood cultures : NO GROWTH - pathology pending LINES/IV ACCESS - PIV, , OGT, Continue use of these lines DVT PROPHYLAXIS - SCDS, Hold chemoprophylaxis until hemostasis is ensured DISPO: ICU while intubated and sedated. Admission and Anticipated Discharge Date Admission Date: November 15, 2024 Supervising Physician Co-Signing Physician Notes Dr. Riley was resident physician during care of patient. I separately evaluated patient for mnotes de oca portions of the history and the exam. I was present during the critical portion of medical decision making, and I discussed the case with the resident. I generally agree with the findings and plan. Fairly significant NG output continue with LR at 80, if additional fluid is needed could consider transition to Plasma-Lyte, tolerating out of bed to chair we have an end date in for his antibiotics. Creatinine significantly improving. Critical care needs appear to have revolved stable for downgrade out of ICU Subjective Patient is norverbal which is his baseline. No any overnight events. Successfully extubated yesterday. urine output getting better. Still significant NG output. Review of Systems Review of Systems: As per HPI Physical Exam Physical Exam: General: Lying propped up in bed. Looks overall comfortable. O2 delivering via Oxymask. Pneumatic compression in situ in BL legs. Chest: Equal chest rise BL, no accessory muscle use, clear on auscultation Bilaterally. Cardiac: S1S2M0,Tele: NSR, no JVD, mild edema peripheral edema. GI: Abdominal binder in place, no soakage noted on visible dressing, bowel sound absent. : Dugan's in-situ with some urine noted during exam. Neuro: Responds with head movement to pain and sound, RRR pupil BL, UL LL power 5/5. Can't access sensory status. Results & Data Results & Data Vital Signs (Past 12 Hours) Vital Signs Temp Pulse Resp BP Pulse Ox 11/17/24 07:00 36.9 C 11/17/24 05:00 137/80 11/17/24 05:00 92 H 48 H 91 11/17/24 04:18 89 20 94 11/17/24 04:00 124/80 11/17/24 04:00 36.5 C 11/17/24 03:54 88 38 H 94 11/17/24 03:00 89 31 H 92 11/17/24 02:00 90 40 H 92 11/17/24 02:00 127/77 11/17/24 01:03 91 H 45 H 94 11/17/24 01:00 120/81 11/17/24 00:57 90 36 H 94 11/17/24 00:00 88 38 H 92 11/17/24 00:00 125/78 11/16/24 23:39 89 11/16/24 23:00 88 31 H 92 11/16/24 23:00 36.5 C 11/16/24 22:00 92 H 31 H 94 11/16/24 22:00 134/79 11/16/24 21:45 84 34 H 95 11/16/24 21:42 90 32 H 95 11/16/24 21:27 92 H 39 H 95 11/16/24 21:06 92 H 36 H 94 11/16/24 21:00 117/77 11/16/24 20:39 92 H 41 H 93 11/16/24 20:30 93 H 41 H 93 11/16/24 20:27 92 H 37 H 93 11/16/24 20:12 94 H 37 H 94 Coding Level of Care Code 04054 SUB INP/OBS CARE 2/35MIN Diagnoses Hyperphosphatemia E83.39 Hypocalcemia E83.51 SBO (small bowel obstruction) K56.609 On mechanically assisted ventilation Z99.11 Seizures R56.9 Elevated LFTs R79.89 Elevated troponin R79.89 ROQUE (acute kidney injury) N17.9 Urinary symptom or sign R39.9 NEENA (generalized anxiety disorder) F41.1 Chronic kidney disease, unspecified CKD stage N18.9 Chronic kidney disease stage: unspecified stage Mixed hyperlipidemia E78.2 Hyperlipidemia type: mixed hyperlipidemia Undifferentiated schizophrenia F20.3 Autism F84.0 Hypothyroidism (acquired) E03.9 Seizure R56.9 Gastroesophageal reflux disease without esophagitis K21.9 Esophagitis presence: without esophagitis Echolalia R48.8 Mood disorder F39 Diverticulosis K57.90 Abnormal thyroid function test R94.6 Intellectual disability F79 Routine health maintenance Z00.00 Seizure disorder G40.909 Encounter for pre-operative examination Z01.818 Complicated grieving F43.21 Encounter for immunization Z23 Eye abnormality Q15.9 Tick bite of right elbow S50.361A; W57.XXXA Sepsis A41.9 Hypoxia R09.02 Resident Activity Tracking Resident Involvement: Resident Care Provided Care Provided: Adult Hospital Medicine (11) Chronic kidney disease Chronic kidney disease stage: unspecified stage Qualified Code(s): N18.9 - Chronic kidney disease, unspecified (12) Hyperlipidemia Hyperlipidemia type: mixed hyperlipidemia Qualified Code(s): E78.2 - Mixed hyperlipidemia (17) GERD (gastroesophageal reflux disease) Esophagitis presence: without esophagitis Qualified Code(s): K21.9 - Gastro- esophageal reflux disease without esophagitis
[2024-11-17] MEDS: HYDROmorphone INJ 1 MG/ML SYRINGE IV PRN (09:17)
--- NOTE | 2024-11-17 11:42 | Surgery Progress Note ---
<Statement entered by Wesley Stewart MD - 11/17/24 15:06> I independently saw the patient and I agree with the assessment and plan of care. Date of Service November 17, 2024 Assessment & Plan (1) Small bowel obstruction: Plan: POD#2 s/p Exploratory Laparotomy, small bowel resection, and anastomosis by Dr. Stewart WBC 6.1, Hbg 12.6. Patient on 2 Liters of O2, otherwise vitals stable NGT in place 800cc documented Pt OOB to chair No bowel function reported, plan to keep NGT until start of bowel function DVT prophylaxis is ordered, qd lovenox Encourage OOB as able and pulmonary toilet and PT/OT We are in agreement to initiate a peripheral form of nutrition (TPN vs PPN) while NPO Appreciate critical care and medical service input and recommendations. Surgery to continue to closely follow Admission and Anticipated Discharge Date Admission Date: November 15, 2024 Subjective Patient resting in chair. non verbal, appears tired and in no acute distress Physical Exam Physical Exam: resting in chair, non verbal, no distress Gastrointestinal (Abdomen): Inspection/Auscultation: + abdomen distended (mild) and + abdominal surgical incision (c/d/i with midline jimy, no signs of infection) Percussion/Palpation: + abdomen tender (appears in some mild discomfort with palpation of abdomen maximus incisionally) NGT in place Results & Data Vital Signs (Past 12 Hours) Vital Signs Temp Pulse Resp BP Pulse Ox O2 Del Method O2 Flow Rate 11/17/24 10:00 94 H 22 112/83 93 Oxymask 2 11/17/24 08:00 94 H 29 H 120/79 92 Oxymask 2 11/17/24 08:00 Oxymask 2 11/17/24 08:00 Oxymask 11/17/24 07:24 91 H 36 H 93 Oxymask 2 11/17/24 07:00 98.4 F 11/17/24 05:00 137/80 11/17/24 05:00 92 H 48 H 91 11/17/24 04:18 89 20 94 11/17/24 04:00 124/80 11/17/24 04:00 97.7 F 11/17/24 03:54 88 38 H 94 11/17/24 03:00 89 31 H 92 11/17/24 02:00 90 40 H 92 11/17/24 02:00 127/77 11/17/24 01:03 91 H 45 H 94 11/17/24 01:00 120/81 11/17/24 00:57 90 36 H 94 11/17/24 00:00 88 38 H 92 11/17/24 00:00 125/78 11/16/24 23:39 89 PG Care Time/CCT Total # of Minutes Spent Total Time Spent with Patient: Total time spent is greater than 50% in coordination of care (as documented) at patient's floor/unit and/or counseling patient: Coding Level of Care Code 85493 Post Operative Follow-Up Diagnoses Small bowel obstruction K56.609
[2024-11-17] MEDS ORDERED: TPN/PPN CONSULT PHARMACY PRN (12:33)
--- NOTE | 2024-11-17 15:26 | Pharmacy Report ---
Pharmacy Initial PN Consult Nt - Date of Service November 17, 2024 - Scope Pharmacy has been consulted on this date to manage parenteral nutrition orders and order appropriate labs. As part of the Nutrition Support Team Guidelines, pharmacy will work in conjunction with dietary when determining the patients caloric needs. - Subjective * The patient is a 64 year old Male admitted on 11/15/24 for HYPOXIA, SBO, S/P EX LAP. * Patient is to receive parenteral nutrition for anticipated prolonged NPO status - Objective Vascular Access: * Patient currently has a peripheral line * Peripheral line was confirmed by IV Team to be acceptable for PPN use on 11/17 Height & Weight (Last Documented) Height 5 ft 5 in Weight 79.3 kg Diet Order(s) 11/15/24 15:49 NPO Intake & Ouput (24hrs) 11/16/24 11/17/24 11/18/24 06:59 06:59 06:59 Intake Total 6198.790 / 6198.790 3308.708 / 3308.708 1858 / 1858 Output Total 5740 / 5740 1999 / 1999 1600 / 1600 Balance 458.790 / 487.250 5682.708 / 1308.708 258 / 258 Selected Laboratory Results 11/17/24 04:41 Sodium 136 Potassium 3.1 L Chloride 93 L Carbon Dioxide 27 Anion Gap 16 H BUN 55 H Creatinine 2.20 H D BUN/Creatinine Ratio 25.0 H Glucose 106 H Calcium 8.2 L Phosphorus 2.9 D Magnesium 2.7 H Total Bilirubin 1.1 H D AST 74 H ALT 108 H Alkaline Phosphatase [address] - Initial Nutrition Assessment Start: 11/17/24 12:29 Freq: Status: Active Protocol: Document 11/17/24 12:30 WN (Rec: 11/17/24 13:11 WN [id number]) - Assessment & Plan Assessment: * Appreciate dietitians recommendations for macronutrients. Plan: * For Day #1 of PPN administration, the following will be ordered: * Macronutrients: * Amino Acids: 85 grams/day * Dextrose: 100 grams/day * Lipids: -- grams/day * Micronutrients: * Sodium chloride: 100 mEq/day * Sodium acetate: 60 mEq/day * Potassium phosphate: 15 mMol/day * Potassium chloride: 40 mEq/day * Calcium gluconate: 4.65 mEq/day * Multivitamins: 10 mL/day * Trace elements: 1 mL/day * Thiamine: 100 mg/day * Total volume of 2117 mL will be infused over 24 hours and will provide 680 kcal/day * Patient is on PPN which has a maximum mOsm/L of 900. Final osmolarity of current solution is 847 mOsm/L. * Labs will be ordered per PN protocol. * Pharmacy will follow and adjust PN orders on a daily basis. Thank you!
--- NOTE | 2024-11-17 15:35 | Billing Data ---
Date of Service November 17, 2024 Coding Level of Care Code 93618 SUB INP/OBS CARE
[2024-11-17] MEDS: PERIPHERAL TPN IV SCH (15:47)
[2024-11-17] MEDS: [UNRECOGNIZED DRUG - OTHER] IV SCH (15:47)
[2024-11-17] MEDS ORDERED: DEXTROSE 10% 1,000 ML IV PRN (16:00)
[2024-11-17] MEDS: ENOXAPARIN INJ 30 MG/0.3 ML SYR SQ SCH (20:04)
[2024-11-18 08:05] LABS: Hematocrit (blood only) 34.3 % (42.0-52.0); Hemoglobin 11.5 g/dl (14.0-18.0); Mean Corpuscular Hemoglobin 28.0 pg (25.0-34.0); Mean Corpuscular Volume 83.5 fL (80.0-100.0); Platelet Count 254 K/uL (130-400); RDW Standard Deviation 40.8 fL (36.4-46.3); Red Blood Count 4.11 M/uL (4.70-6.10); White Blood Count 6.83 K/ul (4.8-10.8)
[2024-11-18 08:29] LABS: Anion Gap 8.0 (3-11); Blood Urea Nitrogen 38.0 mg/dl (6-23); Calcium 8.2 mg/dl (8.6-10.3); Carbon Dioxide 29.0 mmol/L (21-32); Chloride 102.0 mmol/L (98-107); Creatinine Clr Calc Pharmacy 70.1 ml/min; Glucose 139.0 mg/dl (70-99(Fasting)); Magnesium 2.4 mg/dl (1.7-2.4); Potassium 3.5 mmol/L (3.5-5.1); Sodium 139.0 mmol/L (136-145); Triglycerides 643.0 mg/dl (0-150)
[2024-11-18 09:00] LABS: Immature Granulocytes # (auto) 0.26 K/uL (0.01-0.20); Immature Granulocytes % (auto) 3.8 %
[2024-11-18] MEDS ORDERED: POTASSIUM PHOS 3 MMOL/1 ML INFUSION IV STA ×2 (09:09→22:15)
--- NOTE | 2024-11-18 09:53 | Hospitalist Progress Note ---
Date of Service November 18, 2024 Assessment & Plan (1) Small bowel obstruction: (2) Urinary symptom or sign: (3) Sepsis: (4) Hypoxia: (5) ROQUE (acute kidney injury): (6) Elevated troponin: (7) Elevated LFTs: (8) Seizures: (9) Chronic kidney disease: (10) Undifferentiated schizophrenia: (11) Autism: (12) Hypothyroidism (acquired): (13) Seizure: (14) Hypocalcemia: (15) Hyperphosphatemia: Plan Pt is a 64 yo male with with PMH of autism, schizophrenia, seizure disorder, hypothyroidism, HLD, GERD and CKD who had exploratory laparotomy for foreign body in ileum( Appeared like Bouncy ball) on 11/15/2024. Admitted in ICU post surgery. Has been stable and heading to right direction Post-operatively. Plan to continue care per ICU team. #S/P Laparotomy for SBO d/t foreign body D3 s/p emergent exploratory surgery( 11/15/2024) Stable post-op so far. No s/s of PNE, atelectasis, wound related complications. Post op Hb: 11.5gm%( STABLE) Stable electrolytes with ongoing maintenance fluids. Blood cultures : NO GROWTH Pathology report pending Plan: *Surgery recs: Remain NPO Continue NGT to intermittent suction per surgery. Significant Green content coming out. Surgery team concerned about his small bowel being really erythematous ans dilated as seen during surgery. Hence plan to transition oral very slow; recommend NG tube to continue. - PPN was started from yesterday. - Recommend continued chest physiotherapy. - Pain mgmt: Dilaudid and Tylenol HUNG. Fentanyl DCed. - Post- Op antibiotics: Continue Rocephin and Flagyl for anaerobic coverage. Plan for 7 days( complete on 11/22) unless any change in clinical course. - Anticipating longer NPO status; PPN started yesterday. #ROQUE on CKD; Improving. - Cr:1.05 ---<2.2---< 4.26----<5.18. - Dugan's insitu - Urine: Protein 2+, RBCs: 6-10, Nitrite Neg, LE: Trace. Likely 2/2 to CKD, does not look like infection. Plan: Continue hydration #Deranged LFT/ PT INR *Likely caused from ischemia secondary to severe dehydration and volume depletion/decreased nutrition Improving pattern No suspicious finding on imaging preop. Likely will resolve with time. Repeat LFTs alternate day. #Seizure disorder No recent seizure. Home Oral med held while NPO. IV Phenytoin 100 mg QID ongoing Phenytoin level: 8 (just closer to normal) ; we will continue Phenytoin QID for now. Might need to repeat phenytoin level in case of prolonged NPO #Anxiety and mood disorder Meds on hold while NPO. Patient Does not appear overtly anxious currently. Plan to resume meds after NPO Dced. #h/o high dose clonazepam use Patient was using 1 mg Clonazepam QID at home; held now d/t NPO status. Starting Lorazepam 2 mg BID for preventing withdrawal. Will plan for QID dosing if pt. tolerates BID Chronic 1.Hypothyroidism TSH: 1.6(Mar 2024) - Consider if extended NPO- convert Synthroid to IV by 11/21/2024. - Per pharm we can hold Synthroid upto 7 days given 1/2 life of this duration. LINES/IV ACCESS - PIV, NGT, Dugan DVT PROPHYLAXIS - SCDS, LMWH 30 mg SC QAM( renal adjusted) Code: Full Admission and Anticipated Discharge Date Admission Date: November 15, 2024 Supervising Physician Co-Signing Physician Notes Dr. Riley was resident physician during care of patient. I separately evaluated patient for montes de oca portions of the history and the exam. I was present during the critical portion of medical decision making, and I discussed the case with the resident. I generally agree with the findings and plan. Patient was successfully extubated 11/16 and now on room air. He was awake and did track with his eyes and but continues to be nonverbal at baseline. COntinues on NG tube intermittent suction. His pulmonary exam had diminished breath sounds at the bases likely from some splinting which could also be from his abdominal binder or his recent surgery. He had absent bowel sounds. Status post exploratory lap with resection of small bowel due to foreign body obstruction. NGT drainage prevents oral intake, may need to consider ppn or tpn if post op ileus is prolonged. Continue with supportive care Added lorazepam for withdrawal. Subjective Patient was lying down with head propped up. He was making sounds like moaning, and looking like he was in pain. Was due for pain med soon, Talked to bedside RN- did not have ON issues. No new fever, cough, SOB. Called resident care aid Hernan this afternoon and updated about patient's status Review of Systems Review of Systems: As per HPI Physical Exam Physical Exam: General: Lying propped up in bed. Looks overall comfortable. O2 delivering via Oxymask. Pneumatic compression in situ in BL legs. Chest: Equal chest rise BL, no accessory muscle use, clear on auscultation Bilaterally. Cardiac: S1S2M0,Tele: NSR, no JVD, mild edema peripheral edema. GI: Abdominal binder in place, no soakage noted on visible dressing, bowel sound absent. Neuro: Responds with head movement to pain and sound, RRR pupil BL, UL LL power 5/5. Can't access sensory status. Results & Data Results & Data Vital Signs (Past 12 Hours) Vital Signs Temp Pulse Pulse Resp BP Pulse Ox O2 Del Method 11/18/24 08:00 85 11/18/24 07:00 36.4 C L 87 18 112/54 L 96 Nasal Cannula 11/18/24 03:29 36.0 C L 84 20 126/75 96 Room Air 11/17/24 23:42 92 H 11/17/24 22:36 36.4 C L 88 119/77 94 Room Air O2 Flow Rate 11/18/24 08:00 11/18/24 07:00 2.0 11/18/24 03:29 11/17/24 23:42 11/17/24 22:36 Resident Activity Tracking Resident Involvement: Resident Care Provided Care Provided: Adult Hospital Medicine (9) Chronic kidney disease Chronic kidney disease stage: unspecified stage Qualified Code(s): N18.9 - Chronic kidney disease, unspecified
[2024-11-18] MEDS: POTASSIUM PHOSPHATE 21 MMOL in SODIUM CHLORIDE 0.9% 500 ML IV ONE (10:25)
--- NOTE | 2024-11-18 11:30 | Electrocardiogram Report ---
Test Reason : Blood Pressure : */* mmHG Vent. Rate : 122 BPM Atrial Rate : 122 BPM P-R Int : 144 ms QRS Dur : 74 ms QT Int : 330 ms P-R-T Axes : 66 78 56 degrees QTcB Int : 470 ms Sinus tachycardia Otherwise normal ECG No previous ECGs available Confirmed by Philippe Garrett ([id number]) on 11/18/2024 11:30:33 AM Referred By: REFERRED SELF Confirmed By: Philippe Garrett
--- NOTE | 2024-11-18 12:11 | Surgery Progress Note ---
Date of Service November 18, 2024 Assessment & Plan (1) Small bowel obstruction: Plan: POD#3 s/p Exploratory Laparotomy, small bowel resection, and anastomosis by Dr. Stewart WBC 6.8, vitals stable NGT in place 850cc documented Pt OOB to chair No bowel function reported, plan to keep NGT until start of bowel function We will obtain a KUB for further evaluation DVT prophylaxis is ordered, qd lovenox Encourage OOB as able and pulmonary toilet and PT/OT We are in agreement to initiate a peripheral form of nutrition (TPN vs PPN) while NPO Appreciate medical service input and recommendations. Surgery to continue to closely follow Admission and Anticipated Discharge Date Admission Date: November 15, 2024 Subjective Patient non verbal but places hand over abdomen when we see him. he is sitting up in the chair. nursing documents no BM Physical Exam Physical Exam: awake, non verbal. Gastrointestinal (Abdomen): Inspection/Auscultation: + abdomen distended (mild) and + abdominal surgical incision (c/d/i with midline jimy, no signs of infection) Percussion/Palpation: + abdomen tender (appears to have some maximus incisional discomfort) and abdomen soft Results & Data Vital Signs (Past 12 Hours) Vital Signs Temp Pulse Pulse Resp BP Pulse Ox O2 Del Method 11/18/24 11:00 97.7 F 87 18 115/76 92 Room Air 11/18/24 08:00 85 11/18/24 07:00 97.5 F L 87 18 112/54 L 96 Nasal Cannula 11/18/24 03:29 96.8 F L 84 20 126/75 96 Room Air O2 Flow Rate 11/18/24 11:00 11/18/24 08:00 11/18/24 07:00 2.0 11/18/24 03:29 PG Care Time/CCT Total # of Minutes Spent Total Time Spent with Patient: Total time spent is greater than 50% in coordination of care (as documented) at patient's floor/unit and/or counseling patient: Coding Level of Care Code 19395 Post Operative Follow-Up Diagnoses Small bowel obstruction K56.609
--- NOTE | 2024-11-18 12:35 | XRay Report ---
KUB HISTORY: eval bowel gas pattern COMPARISON STUDY: 11/16/2024 FINDINGS: Nasogastric tube tip is in the proximal stomach. There is diffuse small bowel distention me asuring up to 6 cm diameter, stable. No colonic distention seen. IMPRESSION: Stable small bowel distention. ACT 112: Negative or not required by law. The above report was generated using voice recognition software. It may contain grammatical, syntax o r spelling errors. Electronically signed by: Leonard Lozano M.D. 11/18/2024 12:34 PM
[2024-11-18] MEDS: PERIPHERAL TPN IV SCH (15:55)
[2024-11-18] MEDS: [UNRECOGNIZED DRUG - OTHER] IV SCH (15:55)
[2024-11-18] MEDS: ENOXAPARIN INJ 40 MG/0.4 ML SYR SQ SCH (20:05)
[2024-11-18 23:30] LABS: Anion Gap 6.0 (3-11); Blood Urea Nitrogen 36.0 mg/dl (6-23); Calcium 8.6 mg/dl (8.6-10.3); Carbon Dioxide 31.0 mmol/L (21-32); Chloride 104.0 mmol/L (98-107); Creatinine Clr Calc Pharmacy 76.7 ml/min; Glucose 123.0 mg/dl (70-99(Fasting)); Potassium 3.6 mmol/L (3.5-5.1); Sodium 141.0 mmol/L (136-145)
[2024-11-18] MEDS: POTASSIUM PHOSPHATE 24 MMOL in SODIUM CHLORIDE 0.9% 500 ML IV ONE (23:37)
--- NOTE | 2024-11-19 06:54 | Hospitalist Progress Note ---
Date of Service November 19, 2024 Assessment & Plan (1) Small bowel obstruction: (2) Urinary symptom or sign: (3) Sepsis: (4) Hypoxia: (5) ROQUE (acute kidney injury): (6) Elevated troponin: (7) Elevated LFTs: (8) Seizures: (9) Chronic kidney disease: (10) Undifferentiated schizophrenia: (11) Autism: (12) Hypothyroidism (acquired): (13) Seizure: (14) Hypocalcemia: Plan Pt is a 64 yo male with with PMH of autism, schizophrenia, non verbal status, seizure disorder, hypothyroidism, HLD, GERD and CKD who had exploratory laparotomy for foreign body in ileum on 11/15/2024. Has been stable post- operatively. NPO status continued for no bowel movement until this AM and significant drainage on NG. Surgery team following. Issues of pulling IVs and NGs. [employer] updated on 11/18. #S/P Laparotomy for SBO d/t foreign body D4. S/P emergent exploratory surgery( 11/15/2024) Stable post-op so far. No s/s of PNE, atelectasis, wound related complications. Post op Hb: 11.5gm%( STABLE) Stable electrolytes with ongoing PPN. Blood cultures : NO GROWTH Pathology report: Unremarkable except for inflammations, no tumor Plan: *Surgery recs: Remain NPO Continue NGT to intermittent suction per surgery. Significant Green content coming out. Anticipate PO status sooner. - PPN( 11/17); D3 - Recommend continued chest physiotherapy. - Pain mgmt: Dilaudid and Tylenol HUNG. Seems adequate. - Post- Op antibiotics: Continue Rocephin and Flagyl for anaerobic coverage. Plan for 7 days( complete on 11/22) unless any change in clinical course. #ROQUE on CKD Improving. - Cr:0.78 today. - PPN Nutrition replacement has shown drastic change, anticipate stability. #Deranged LFT/ PT INR *Likely caused from ischemia secondary to severe dehydration and volume de pletion/decreased nutrition Improving pattern No suspicious finding on imaging preop. Likely will resolve with time. Repeat LFTs alternate day. #Seizure disorder No recent seizure. Home Oral med held while NPO. IV Phenytoin 100 mg QID ongoing. Phenytoin level: 8 (just closer to normal) ; we will continue Phenytoin QID for now. Repeat phenytoin level today along with Albumin. #Anxiety and mood disorder Meds on hold while NPO. Patient Does not appear overtly anxious currently. Plan to resume meds after NPO Dced. #h/o high dose clonazepam use Patient was using 1 mg Clonazepam QID at home; held now d/t NPO status. Lorazepam 2 mg QID for preventing withdrawal. Chronic 1.Hypothyroidism TSH: 1.6(Mar 2024) - Consider Synthroid to IV by 11/21/2024. - Per pharm we can hold Synthroid upto 7 days given 1/2 life of this duration. LINES/IV ACCESS - PIV, NGT, Dugan DVT PROPHYLAXIS - SCDS, LMWH 40 mg SC QPM Code: Full Admission and Anticipated Discharge Date Admission Date: November 15, 2024 Supervising Physician Co-Signing Physician Notes Dr. Riley was resident physician during care of patient. I separately evaluated patient for montes de oca portions of the history and the exam. I was present during the critical portion of medical decision making, and I discussed the case with the resident. I generally agree with the findings and plan. Patient was successfully extubated 11/16 and now on room air. He was awake and did track with his eyes and but continues to be nonverbal at baseline. COntinues on NG tube intermittent suction. Patient had a bowel movement. His pulmonary exam had diminished breath sounds at the bases likely from some splinting which could also be from his abdominal binder or his recent surgery. He has active bowel sounds Status post exploratory lap with resection of small bowel due to foreign body obstruction. NGT drainage prevents oral intake, on PPN. Continue with supportive care Added lorazepam for withdrawal. Danish Julian pulled out his IV and NG tube this morning, Nursing re-inserted it again. When I saw him today, he was sleeping in propped up position. Did not react to my voice like he used to do yesterday. Sleeping normal with breathing ok. Later on around 9 nursing again informed he pulled NG second time this morning. It was re-inserted again. NPO continues. No fever, Cough, abnormal breathing, rashes, leg swelling. Review of Systems Review of Systems: As per HPI Physical Exam Physical Exam: General: Lying propped up in bed. Looks overall comfortable. Pneumatic compression in situ in BL legs. Chest: Equal chest rise BL, decreased air entry BL lower bases,no accessory muscle use, clear on auscultation Bilaterally. Cardiac: [id number],Tele: NSR, no JVD, mild edema peripheral edema. GI: Abdominal binder in place, no soakage noted on visible dressing, Normal Bowel sound noted. Neuro: RRR pupil BL, UL LL; good tone, Can't access sensory status. Results & Data Results & Data Vital Signs (Past 12 Hours) Vital Signs Temp Pulse Pulse Resp BP Pulse Ox O2 Del Method 11/19/24 02:57 36.6 C 103 H 18 122/78 92 Room Air 11/18/24 22:59 37.0 C 103 H 20 126/78 92 Room Air 11/18/24 22:36 98 H 11/18/24 21:43 Room Air 11/18/24 19:50 36.9 C 103 H 20 128/86 90 Room Air Resident Activity Tracking Resident Involvement: Resident Care Provided Care Provided: Adult Hospital Medicine (9) Chronic kidney disease Chronic kidney disease stage: unspecified stage Qualified Code(s): N18.9 - Chronic kidney disease, unspecified
[2024-11-19 06:57] LABS: Hematocrit (blood only) 36.9 % (42.0-52.0); Hemoglobin 12.3 g/dl (14.0-18.0); Mean Corpuscular Hemoglobin 28.4 pg (25.0-34.0); Mean Corpuscular Volume 85.2 fL (80.0-100.0); Platelet Count 304 K/uL (130-400); RDW Standard Deviation 43.2 fL (36.4-46.3); Red Blood Count 4.33 M/uL (4.70-6.10); White Blood Count 10.58 K/ul (4.8-10.8)
[2024-11-19 07:16] LABS: Alanine Aminotransferase 71.0 U/L (7-52); Albumin Level 3.1 gm/dl (3.4-5.0); Alkaline Phosphatase 58.0 U/L (34-104); Anion Gap 9.0 (3-11); Bilirubin,Total 0.8 mg/dl (0.2-1.0); Blood Urea Nitrogen 33.0 mg/dl (6-23); Calcium 8.4 mg/dl (8.6-10.3); Carbon Dioxide 28.0 mmol/L (21-32); Chloride 106.0 mmol/L (98-107); Creatinine Clr Calc Pharmacy 94.0 ml/min; Glucose 113.0 mg/dl (70-99(Fasting)); Magnesium 1.9 mg/dl (1.7-2.4); Potassium 3.9 mmol/L (3.5-5.1); Sodium 143.0 mmol/L (136-145); Total Protein 6.1 gm/dl (6.0-8.3)
[2024-11-19 07:45] LABS: Immature Granulocytes # (auto) 0.59 K/uL (0.01-0.20); Immature Granulocytes % (auto) 5.6 %
--- NOTE | 2024-11-19 08:02 | XRay Report ---
EXAM: XR KUB/Abdomen 1 view CLINICAL HISTORY: NG tube placement TECHNIQUE: X-ray images of the abdomen were obtained in supine and upright positions. COMPARISON: 11/16/2024 FINDINGS: The NG tube is well positioned, and the tip is in the gastric cavity (unchanged). Gas Pattern: There is multiple bowel loop dilatation, mainly detected in the left upper quadrant (nearly unchanged). The gastric gas distension is decreased compared to the prior study. Soft Tissues: The soft tissues of the abdomen appear normal, without evidence of masses or calcifications. The liver, spleen, and kidneys are of normal size and position. There are a few hazy patches in the right middle and lower lung zones. IMPRESSION: 1. The NG tube is well-positioned, with the tip in the gastric cavity (unchanged). 2. There is nearly unchanged multiple bowel loop dilatation. Electronically signed by Audie Falk 11-19-2024 08:02 AM
--- NOTE | 2024-11-19 09:26 | XRay Report ---
KUB HISTORY: check NGT placement COMPARISON STUDY: 11/19/2024 FINDINGS: Nasogastric tube tip is in the proximal body of the stomach. There is stable small bowel di stention at the visualized abdomen. IMPRESSION: Nasogastric tube as described. ACT 112: Negative or not required by law. The above report was generated using voice recognition software. It may contain grammatical, syntax o r spelling errors. Electronically signed by: Leonard Lozano M.D. 11/19/2024 9:24 AM
--- NOTE | 2024-11-19 09:45 | Billing Data ---
Date of Service November 18, 2024 Coding Level of Care Code 45878 SUB INP/OBS CARE MIN
--- NOTE | 2024-11-19 11:12 | Surgery Progress Note ---
Date of Service November 19, 2024 Assessment & Plan (1) Small bowel obstruction: Plan: POD#4s/p Exploratory Laparotomy, small bowel resection, and anastomosis by Dr. Stewart WBC 6.8, vitals stable Appears to be starting to have return of bowel function with abdomen much softer and less distended and patient producing stool but NG tube with some bilious output still and KUB still with somewhat dilated loops of small bowel, will keep NG tube in for today, continue with IV nutrition, replace electrolytes, hopefully plan for removing NG tube soon though. Continue with DVT prophylaxis. Pulmonary toilet, PT. Admission and Anticipated Discharge Date Admission Date: November 15, 2024 Subjective Patient is nonverbal but nurse does report that patient had a large bowel movement he did pull out his NG tube a few times, it is now reinserted. KUB was done that shows NG tube in good position but still with some dilated loops of small bowel. Review of Systems Review of Systems: 12 point review of systems is negative e xcept as mentioned above Physical Exam Constitutional: WD/WN, vitals as above Eyes: PERRL, conjunctivae normal, anicteric sclerae Chest (Breasts): Additional Comments: normal respiratory effort Gastrointestinal (Abdomen): Abdomen is softer today, NG tube with small amount of bilious output, incision healing well, does not appear as tender as he was yesterday on exam Results & Data Vital Signs (Past 12 Hours) Vital Signs Temp Pulse Resp BP Pulse Ox O2 Del Method 11/19/24 07:26 37.0 C 103 H 20 133/87 93 Room Air 11/19/24 02:57 36.6 C 103 H 18 122/78 92 Room Air Sodium 143 mmol/L (136-145) 11/19/24 Potassium 3.9 mmol/L (3.5-5.1) 11/19/24 Chloride 106 mmol/L (98-107) 11/19/24 Carbon Dioxide 28 mmol/L (21-32) 11/19/24 Anion Gap 9 (3-11) 11/19/24 BUN 33 mg/dl (6-23) H 11/19/24 Creatinine 0.78 mg/dl (0.6-1.4) 11/19/24 eGFR 100.21 11/19/24 Est GFR ( Amer) 74.7 ml/min 11/05/23 Est GFR (Non-Af Amer) 64.4 ml/min 11/05/23 BUN/Creatinine Ratio 42.3 (10-20) H 11/19/24 Glucose 113 mg/dl (70-99(Fasting)) H 11/19/24 Hemoglobin A1c 5.1 % (4.5-5.6) 10/28/24 Calcium 8.4 mg/dl (8.6-10.3) L 11/19/24 Phosphorus 2.2 mg/dl (2.5-4.9) L 11/19/24 Total Bilirubin 0.8 mg/dl (0.2-1.0) 11/19/24 Direct Bilirubin 0.4 mg/dl (0-0.2) H 11/19/24 AST 58 U/L (13-39) H 11/19/24 ALT 71 U/L (7-52) H 11/19/24 Alkaline Phosphatase 58 U/L (34-104) 11/19/24 Total Protein 6.1 gm/dl (6.0-8.3) 11/19/24 Albumin 3.1 gm/dl (3.4-5.0) L 11/19/24 Globulin 2.8 gm/dl (2.5-4.0) 11/15/24 Triglycerides 643 mg/dl (0-150) H 11/18/24 Cholesterol 182 mg/dl (0-200) 10/28/24 LDL Cholesterol, Calc 99 mg/dl 10/28/24 HDL Cholesterol 36 mg/dl 10/28/24 Cholesterol/HDL Ratio 5.1 (0-5) H 10/28/24 PG Care Time/CCT Total # of Minutes Spent Total Time Spent with Patient: Total time spent is greater than 50% in coordination of care (as documented) at patient's floor/unit and/or counseling patient: Coding Level of Care Code 38403 Post Operative Follow-Up Diagnoses Small bowel obstruction K56.609
--- NOTE | 2024-11-19 11:29 | XRay Report ---
KUB HISTORY: see bowel status COMPARISON STUDY: 11/19/2024 FINDINGS: Upper abdomen is off the field of view superiorly. Skin jimy are present. There is diffu se small bowel distention measuring up to 6 cm diameter, grossly stable. No colonic distention seen. IMPRESSION: Grossly stable small bowel distention. ACT 112: Negative or not required by law. The above report was generated using voice recognition software. It may contain grammatical, syntax o r spelling errors. Electronically signed by: Leonard Lozano M.D. 11/19/2024 11:28 AM
[2024-11-19] MEDS: METOCLOPRAMIDE HCL INJ 5 MG/ML 2 ML VIAL IV STA (11:35)
[2024-11-19 15:41] LABS: Albumin Level 2.8 gm/dl (3.4-5.0)
[2024-11-19] MEDS: [UNRECOGNIZED DRUG - OTHER] IV SCH (16:01)
[2024-11-19] MEDS: PERIPHERAL TPN IV SCH (16:01)
[2024-11-19] MEDS ORDERED: POTASSIUM PHOS 3 MMOL/1 ML INFUSION IV STA (17:37)
[2024-11-19] MEDS: POTASSIUM PHOSPHATE 15 MMOL in SODIUM CHLORIDE 0.9% 250 ML IV ONE (18:43)
[2024-11-20 07:10] LABS: Anion Gap 6.0 (3-11); Blood Urea Nitrogen 32.0 mg/dl (6-23); Calcium 8.4 mg/dl (8.6-10.3); Carbon Dioxide 24.0 mmol/L (21-32); Chloride 113.0 mmol/L (98-107); Creatinine Clr Calc Pharmacy 92.9 ml/min; Glucose 122.0 mg/dl (70-99(Fasting)); Magnesium 1.8 mg/dl (1.7-2.4); Potassium 4.2 mmol/L (3.5-5.1); Sodium 143.0 mmol/L (136-145)
--- NOTE | 2024-11-20 07:40 | Surgery Progress Note ---
Date of Service November 20, 2024 Assessment & Plan (1) Small bowel obstruction: Plan: POD#5 s/p Exploratory Laparotomy, small bowel resection, and anastomosis by Dr. Stewart Vitals stable + BM 2 days ago, but no meaningful bowel fxn since. KUB yesterday revealed stable bowel distention so NGT left in place NGT documented 700cc overnight, will obtain another KUB this AM, if improved will consider removal of NGT Abdomen is soft and incisions are c/d/i Remain on PPN for now Encourage ambulation and pulmonary toilet and DVT prophylaxis [facility] covering the weekend Admission and Anticipated Discharge Date Admission Date: November 15, 2024 Subjective Patient non verbal. Reaching out to hold my hand. appears pleasant and in no dis tress Physical Exam Physical Exam: awake, comfortable appearing, no distress Respiratory: on room air Gastrointestinal (Abdomen): Inspection/Auscultation: + abdominal surgical incision (c/d/i with midline jimy, no signs of infection); abdomen not distended Percussion/Palpation: + abdomen tender (non tender appearing when palpating abdomen) and abdomen soft Results & Data Vital Signs (Past 12 Hours) Vital Signs Temp Pulse Pulse Resp BP Pulse Ox O2 Del Method 11/20/24 02:53 97.5 F L 96 H 19 134/78 93 Room Air 11/19/24 23:25 98.6 F 99 H 20 132/76 94 Room Air 11/19/24 21:42 107 H 11/19/24 19:39 98.8 F 110 H 18 134/75 93 Room Air PG Care Time/CCT Total # of Minutes Spent Total Time Spent with Patient: Total time spent is greater than 50% in coordination of care (as documented) at patient's floor/unit and/or counseling patient: Coding Level of Care Code 95395 Post Operative Follow-Up Diagnoses Small bowel obstruction K56.609
[2024-11-20] MEDS ORDERED: ACETAMINOPHEN 1,000 MG/100 ML VIAL IV PRN (07:42)
--- NOTE | 2024-11-20 07:43 | Hospitalist Progress Note ---
Date of Service November 20, 2024 Assessment & Plan (1) Small bowel obstruction: (2) Urinary symptom or sign: (3) Sepsis: (4) Hypoxia: (5) ROQUE (acute kidney injury): (6) Elevated troponin: (7) Elevated LFTs: (8) Seizures: (9) Chronic kidney disease: (10) Undifferentiated schizophrenia: (11) Autism: (12) Hypothyroidism (acquired): (13) Seizure: (14) Hypocalcemia: Plan Pt is a 64 yo male with with PMH of autism, schizophrenia, non verbal status, seizure disorder, hypothyroidism, HLD, GERD and CKD who had exploratory laparotomy for foreign body in ileum on 11/15/2024. Has been stable post- operatively. NPO and NG tube continued for significant drainage on NG. Surgery team following. [employer] updated on 11/18. #S/P Laparotomy for SBO d/t foreign body D4. S/P emergent exploratory surgery( 11/15/2024) Stable post-op so far. No s/s of PNE, atelectasis, wound related complications. Post op Hb: 11.5gm%( STABLE) Stable electrolytes with ongoing PPN. Blood cultures : NO GROWTH Pathology report: Unremarkable except for inflammations, no tumor Plan: *Surgery recs: Remain NPO Continue NGT to intermittent suction per surgery. Significant Green content coming out. Anticipate PO status sooner. - PPN( 11/17); D4 - Recommend continued chest physiotherapy. - Pain mgmt: Dilaudid and Tylenol HUNG. Seems adequate. - Post- Op antibiotics: Continue Rocephin and Flagyl for anaerobic coverage. Plan for 7 days( complete on 11/22) unless any change in clinical course. #ROQUE on CKD Improving. - Cr:0.78 today. - PPN Nutrition replacement has shown drastic change, anticipate stability. #Deranged LFT/ PT INR *Likely caused from ischemia secondary to severe dehydration and volume depletion/decreased nutrition Improving pattern No suspicious finding on imaging preop. Likely will resolve with time. Repeat LFTs alternate day. #Seizure disorder No recent seizure. Home Oral med held while NPO. IV Phenytoin 100 mg QID ongoing. Phenytoin level: 8 (just closer to normal) ; we will continue Phenytoin QID for now. Repeat phenytoin level today along with Albumin. #Anxiety and mood disorder Meds on hold while NPO. Patient Does not appear overtly anxious currently. Plan to resume meds after NPO Dced. #h/o high dose clonazepam use Patient was using 1 mg Clonazepam QID at home; held now d/t NPO status. Lorazepam 2 mg QID for preventing withdrawal. Chronic 1.Hypothyroidism TSH: 1.6(Mar 2024) - Consider Synthroid to IV by 11/21/2024. - Per pharm we can hold Synthroid upto 7 days given 1/2 life of this duration. LINES/IV ACCESS - PIV, NGT, Dugan DVT PROPHYLAXIS - SCDS, LMWH 40 mg SC QPM Code: Full Admission and Anticipated Discharge Date Admission Date: November 15, 2024 Supervising Physician Co-Signing Physician Notes Dr. Riley was resident physician during care of patient. I separately evaluated patient for montes de oca portions of the history and the exam. I was present during the critical portion of medical decision making, and I discussed the case with the resident. I generally agree with the findings and plan. Patient was successfully extubated 11/16 and now on room air. He was awake and did track with his eyes and but continues to be nonverbal at baseline. Continues on NG tube intermittent suction. Patient had a bowel movement yesterday. Patient removed NG tube yesterday and peripheral line. Had to replace. His pulmonary exam had diminished breath sounds at the bases likely from some splinting which could also be from his abdominal binder or his recent surgery. He has active bowel sounds Status post exploratory lap with resection of small bowel due to foreign body obstruction. NGT drainage prevents oral intake, on PPN. Monitoring electrolytes. Continue with supportive care Added lorazepam for withdrawal. Subjective Patient remain non verbal, however calm. Lying on bed comfortable with tubes and lines in place. Review of Systems Review of Systems: As per HPI Physical Exam Physical Exam: General: Lying propped up in bed. Looks overall comfortable. Pneumatic compression in situ in BL legs. Chest: Equal chest rise BL, decreased air entry BL lower bases,no accessory muscle use, clear on auscultation Bilaterally. Cardiac: [id number],Tele: NSR, no JVD, mild edema peripheral edema. GI: Abdominal binder in place, no soakage noted on visible dressing, Normal Bowel sound noted. Neuro: RRR pupil BL, UL LL; good tone, Can't access sensory status. Results & Data Results & Data Vital Signs (Past 12 Hours) Vital Signs Temp Pulse Pulse Resp BP Pulse Ox O2 Del Method 11/20/24 02:53 36.4 C L 96 H 19 134/78 93 Room Air 11/19/24 23:25 37.0 C 99 H 20 132/76 94 Room Air 11/19/24 21:42 107 H (9) Chronic kidney disease Chronic kidney disease stage: unspecified stage Qualified Code(s): N18.9 - Chronic kidney disease, unspecified
--- NOTE | 2024-11-20 09:31 | XRay Report ---
KUB HISTORY: eval bowel gas pattern COMPARISON STUDY: 11/19/2024 FINDINGS: Nasogastric tube tip is in the proximal stomach. Skin jimy are present at the midline. T here is diffuse small bowel distention measuring up to 5.5 cm diameter, stable. No colonic distention seen. No gross free air. IMPRESSION: Stable small bowel distention. ACT 112: Negative or not required by law. The above report was generated using voice recognition software. It may contain grammatical, syntax o r spelling errors. Electronically signed by: Leonard Lozano M.D. 11/20/2024 9:30 AM
[2024-11-20] MEDS: METOCLOPRAMIDE HCL INJ 5 MG/ML 2 ML VIAL IV STA (13:58)
[2024-11-20] MEDS: AA 4.25%/D5W 2L 2,104 ML in Peripheral TPN bag 0 ML IV SCH (15:30)
--- NOTE | 2024-11-21 02:16 | XRay Report ---
Exam(s): XR KUB EXAM: XR Abdomen, 1 View CLINICAL HISTORY: Reason for exam: confirm NG tube placement. TECHNIQUE: Frontal supine view of the abdomen/pelvis. COMPARISON: No relevant prior studies available. FINDINGS: Gastrointestinal tract: Dilated small bowel may represent small-bowel obstruction. Bones/joints: No acute fracture. No dislocation. Tubes, lines and devices: Enteric tube extends to the stomach. IMPRESSION: 1. Enteric tube extends to the stomach. 2. Dilated small bowel may represent small-bowel obstruction or ileus. Electronically signed by: David Mcneil M.D. 11/21/24 02:15 AM
[2024-11-21 05:30] LABS: Hematocrit (blood only) 35.9 % (42.0-52.0); Hemoglobin 11.9 g/dl (14.0-18.0); Mean Corpuscular Hemoglobin 28.3 pg (25.0-34.0); Mean Corpuscular Volume 85.5 fL (80.0-100.0); Platelet Count 349 K/uL (130-400); RDW Standard Deviation 41.1 fL (36.4-46.3); Red Blood Count 4.20 M/uL (4.70-6.10); White Blood Count 13.95 K/ul (4.8-10.8)
[2024-11-21 05:45] LABS: Alanine Aminotransferase 62.0 U/L (7-52); Albumin Level 3.0 gm/dl (3.4-5.0); Alkaline Phosphatase 70.0 U/L (34-104); Anion Gap 6.0 (3-11); Bilirubin,Total 0.8 mg/dl (0.2-1.0); Blood Urea Nitrogen 31.0 mg/dl (6-23); Calcium 8.6 mg/dl (8.6-10.3); Carbon Dioxide 24.0 mmol/L (21-32); Chloride 112.0 mmol/L (98-107); Creatinine Clr Calc Pharmacy 93.0 ml/min; Glucose 123.0 mg/dl (70-99(Fasting)); Magnesium 1.9 mg/dl (1.7-2.4); Potassium 4.0 mmol/L (3.5-5.1); Sodium 142.0 mmol/L (136-145); Total Protein 6.0 gm/dl (6.0-8.3); Triglycerides 347.0 mg/dl (0-150)
[2024-11-21 06:23] LABS: Immature Granulocytes # (auto) 0.75 K/uL (0.01-0.20); Immature Granulocytes % (auto) 5.4 %; Polychromasia 1+; Toxic Granulation 1+
--- NOTE | 2024-11-21 07:34 | Hospitalist Progress Note ---
Date of Service November 21, 2024 Assessment & Plan (1) Small bowel obstruction: (2) Urinary symptom or sign: (3) Sepsis: (4) Hypoxia: (5) ROQUE (acute kidney injury): (6) Elevated troponin: (7) Elevated LFTs: (8) Seizures: (9) Chronic kidney disease: (10) Undifferentiated schizophrenia: (11) Autism: (12) Hypothyroidism (acquired): (13) Seizure: (14) Hypocalcemia: Plan Pt is a 64 yo male with with PMH of autism, schizophrenia, non verbal status, seizure disorder, hypothyroidism, HLD, GERD and CKD who had exploratory laparotomy for foreign body in ileum on 11/15/2024. Has been stable post- operatively. NPO and NG tube continued for significant drainage on NG. Surgery team following. [employer] updated on 11/18. #S/P Laparotomy for SBO d/t foreign body D4. S/P emergent exploratory surgery( 11/15/2024). Post op Hb: 11.5gm%( STABLE) Stable electrolytes with ongoing PPN. WBCs: 13.95(elevated than before) , plan: CRP, Procal, Chest XR CRP/ Procal: 4.64/ 1.38 Repeat XR KUB to see bowel status. C Diff ordered. Blood cultures : NO GROWTH Pathology report: Unremarkable except for inflammations, no tumor Plan: *Surgery recs: Remain NPO Continue NGT to intermittent suction per surgery. Significant brown content coming out. 1000 ml in last 24 hours. - PPN(11/17); D5 - Recommend continued chest physiotherapy. - Pain mgmt: Dilaudid and Tylenol HUNG. Seems adequate. - Post- Op antibiotics: Continue Rocephin and Flagyl for anaerobic coverage. Plan for 7 days( complete on 11/22) unless any change in clinical course. #ROQUE on CKD Improving. - Cr:0.77 today. - PPN Nutrition replacement has shown drastic change, anticipate stability. #Deranged LFT/ PT INR *Likely caused from ischemia secondary to severe dehydration and volume depletio n/decreased nutrition Improving pattern No suspicious finding on imaging preop. Likely will resolve with time. Repeat LFTs alternate day. #Seizure disorder No recent seizure. Home Oral med held while NPO. IV Phenytoin 100 mg QID ongoing. Phenytoin level: 8 (just closer to normal) ; we will continue Phenytoin QID for now. Repeat phenytoin level along with Albumin; pending #Anxiety and mood disorder Meds on hold while NPO. Patient Does not appear overtly anxious currently. Plan to resume meds after NPO Dced. #h/o high dose clonazepam use Patient was using 1 mg Clonazepam QID at home; held now d/t NPO status. Lorazepam 2 mg QID for preventing withdrawal. Chronic 1.Hypothyroidism TSH: 1.6(Mar 2024) - Consider Synthroid to IV by 11/21/2024. - Per pharm we can hold Synthroid upto 7 days given 1/2 life of this duration. LINES/IV ACCESS - PIV, NGT, Dugan DVT PROPHYLAXIS - SCDS, LMWH 40 mg SC QPM Code: Full Admission and Anticipated Discharge Date Admission Date: November 15, 2024 Supervising Physician Co-Signing Physician Notes Dr. Riley was resident physician during care of patient. I separately evaluated patient for montes de oca portions of the history and the exam. I was present during the critical portion of medical decision making, and I discussed the case with the resident. I generally agree with the findings and plan. Patient was successfully extubated 11/16 and now on room air. He was awake and did track with his eyes and but continues to be nonverbal at baseline. Continues on NG tube intermittent suction. Patient had a bowel movement 2 days ago and then had another one today. Patient removed NG tube yesterday and peripheral line. Had to replace. KUB though is concerning and WBC is slightly higher. Will monitor. His pulmonary exam had diminished breath sounds at the bases likely from some splinting which could also be from his abdominal binder or his recent surgery. He has active bowel sounds Status post exploratory lap with resection of small bowel due to foreign body obstruction. NGT drainage prevents oral intake, on PPN. Monitoring electrolytes. Continue with supportive care Added lorazepam for withdrawal. Subjective Remains non vocal, per RN bedside NG tube out twice last night, still draining significant. Now drainage is brownish in color compared to dark green until yesterday. No fever, cough. Review of Systems Review of Systems: As per HPI Physical Exam Physical Exam: General: Lying propped up in bed. Looks overall comfortable. Pneumatic compression in situ in BL legs. Chest: Equal chest rise BL, decreased air entry BL lower bases,no accessory muscle use, clear on auscultation Bilaterally. Cardiac: [id number],Tele: NSR, no JVD, mild edema peripheral edema. GI: Abdominal binder in place, no soakage noted on visible dressing, Normal Bowel sound noted. Neuro: RRR pupil BL, UL LL; good tone, Can't access sensory status. Results & Data Results & Data Vital Signs (Past 12 Hours) Vital Signs Temp Pulse Pulse Resp BP Pulse Ox O2 Del Method 11/21/24 05:05 36.4 C L 99 H 19 131/82 94 Room Air 11/21/24 00:00 108 H 11/20/24 21:36 37.0 C 111 H 19 117/73 93 Room Air 11/20/24 21:30 Room Air Resident Activity Tracking Resident Involvement: Resident Care Provided Care Provided: Adult Hospital Medicine (9) Chronic kidney disease Chronic kidney disease stage: unspecified stage Qualified Code(s): N18.9 - Chronic kidney disease, unspecified
--- NOTE | 2024-11-21 08:37 | XRay Report ---
EXAM: XR chest 1V portable CLINICAL HISTORY: Rule out of Pneumonia. TECHNIQUE: An X-ray image of the chest was obtained in one frontal projection. COMPARISON: Prior X-ray dated 11/15/2024 was used for comparison. FINDINGS: Interval removal of endotracheal tube (ETT). The nasogastric (NG) tube is in situ, with the tip in place. Pulmonary Parenchyma: Unchanged patchy haziness is present in the right upper zone. Unchanged thin atelectatic bands are seen in the left lower zone. Unchanged blunting of the left costophrenic (CP) angle likely represents pleural thickening versus effusion. No evidence of consolidation or collapse. No evidence of right pleural effusion or pleural thickening. Heart and Mediastinum: The heart size and shape are normal. There is no mediastinal widening or masses. No hilar or mediastinal lymphadenopathy is present. Bony Thorax: The bony thorax appears intact, without fractures or deformities. Soft Tissues: The soft tissues overlying the chest wall are unremarkable. IMPRESSION: 1. Interval removal of the endotracheal tube (ETT). 2. The nasogastric (NG) tube is in situ, with the tip in place. 3. Unchanged patchy haziness in the right upper zone. 4. Unchanged thin atelectatic bands in the left lower zone. 5. Unchanged blunting of the left costophrenic (CP) angle, likely representing pleural thickening versus effusion. Electronically signed by Audie Falk 11-21-2024 08:37 AM
--- NOTE | 2024-11-21 09:42 | Billing Data ---
Date of Service November 19, 2024 Coding Level of Care Code 54089 SUB INP/OBS CARE
--- NOTE | 2024-11-21 09:47 | Billing Data ---
Date of Service November 20, 2024 Coding Level of Care Code 81020 SUB INP/OBS CARE
--- NOTE | 2024-11-21 10:32 | Surgery Progress Note ---
Date of Service November 21, 2024 Assessment & Plan (1) Ileus: Plan: Continue NG tube KUB in the morning Trend output of NG Up out of bed as tolerated Admission and Anticipated Discharge Date Admission Date: November 15, 2024 Subjective NG tube dislodged and replaced last night KUB showed a large amount of air. Large amount of NG drainage post second placement. Physical Exam Constitutional: WD/WN, vitals as above Eyes: no scleral abnormality Respiratory: normal respiratory effort Cardiovascular: Rate/Rhythm: regular rate and regular rhythm Gastrointestinal (Abdomen): Inspection/Auscultation: abdomen normal to inspection, + abdomen distended and normal bowel sounds Percussion/Palpation: abdomen soft; abdomen nontender, no guarding and abdomen not rigid Musculoskeletal: Head/Neck/Chest: normocephalic and head atraumatic Results & Data Vital Signs (Past 12 Hours) Vital Signs Temp Pulse Pulse Resp BP Pulse Ox O2 Del Method 11/21/24 08:54 Room Air 11/21/24 08:00 88 11/21/24 07:34 36.7 C 97 H 20 133/82 96 Room Air 11/21/24 05:05 36.4 C L 99 H 19 131/82 94 Room Air 11/21/24 00:00 108 H
[2024-11-21] MEDS: AA 4.25%/D5W 2L 2,104 ML in Peripheral TPN bag 0 ML IV SCH (15:57)
--- NOTE | 2024-11-21 17:02 | XRay Report ---
INDICATION: Abdominal pain TECHNIQUE: Portable supine view radiograph of the abdomen was obtained. COMPARISON: Abdominal radiograph [address] abdomen and pelvis November 15, 2024 FINDINGS: Redemonstration of the gas distended loops of small bowel with the distention appearing slightly worsened from the radiograph 2 days previous. Evaluation for free air is limited due to supine technique. Midline skin jimy. IMPRESSION: Redemonstration of the gas distended loops of small bowel with the distention appearing slightly worsened from the radiograph 2 days previous. Electronically signed by Mark Pitts 11-21-2024 5:01 PM
--- NOTE | 2024-11-22 05:28 | Ultrasound Report ---
EXAM: US venous doppler UE BI CLINICAL HISTORY: Clots? "IV was placed, and a clot was visualized during that." TECHNIQUE: An ultrasound examination of the bilateral upper extremity veins was performed in real time with duplex. One or more of the following were performed: spectral analysis, resistive index, waveform analysis, and pulsed Doppler. COMPARISON: None. FINDINGS: A non-occlusive thrombus is visualized within the right basilic vein, which extends superficially into the right forearm. The peripheral IV line at the right cephalic vein at the mid-upper arm is compressible, without evidence of thrombosis. A non-occlusive thrombus is visualized within the left basilic vein at the mid/distal upper arm, and extends superficially into the left forearm. A thrombus is visualized within the left cephalic vein at the mid/distal lateral upper arm, which extends to the left wrist. A peripheral IV line is present at the left cephalic vein, with a superficial clot also seen. Normal phasic, non-pulsatile, and spontaneous flow is noted in the bilateral innominate, internal jugular, subclavian, axillary, brachial, radial, and ulnar veins. These visualized veins of the left upper extremity demonstrate normal compressibility. No sonographic evidence of acute deep vein thrombosis (DVT) is detected in the visualized veins of the upper extremity. Mild subcutaneous edema is seen in the bilateral forearms. IMPRESSION: 1. Superficial venous thrombosis of the bilateral basilic vein at the forearm, and left cephalic vein at the mid/distal lateral upper arm, extending to the left wrist, as described. 2. The peripheral IV at the right cephalic vein at the mid-upper arm is compressible, without evidence of thrombosis. 3. Peripheral IV line in the left cephalic vein at the wrist, with a superficial clot also seen. 4. Mild subcutaneous edema is seen in the bilateral forearms. 5. Bilateral deep veins shows no thrombosis. Disclaimer: DVT could be missed early in the disease when the clot burden is minimal. For patients with moderate and high pretest probability of DVT and negative ultrasound, the [employer] clinical guidelines recommend testing with a D-dimer assay or repeat ultrasound in 5-7 days. If symptoms worsen, the Society of [employer] in Ultrasound recommends repeating the ultrasound even earlier. Electronically signed by Audie Falk 11-22-2024 05:28 AM
[2024-11-22 05:41] LABS: Hematocrit (blood only) 37.6 % (42.0-52.0); Hemoglobin 12.4 g/dl (14.0-18.0); Immature Granulocytes # (auto) 0.59 K/uL (0.01-0.20); Immature Granulocytes % (auto) 3.1 %; Mean Corpuscular Hemoglobin 28.2 pg (25.0-34.0); Mean Corpuscular Volume 85.6 fL (80.0-100.0); Platelet Count 433 K/uL (130-400); RDW Standard Deviation 41.0 fL (36.4-46.3); Red Blood Count 4.39 M/uL (4.70-6.10); White Blood Count 18.88 K/ul (4.8-10.8)
[2024-11-22 06:07] LABS: Anion Gap 7.0 (3-11); Blood Urea Nitrogen 33.0 mg/dl (6-23); Calcium 8.8 mg/dl (8.6-10.3); Carbon Dioxide 24.0 mmol/L (21-32); Chloride 110.0 mmol/L (98-107); Creatinine Clr Calc Pharmacy 82.2 ml/min; Glucose 125.0 mg/dl (70-99(Fasting)); Magnesium 2.0 mg/dl (1.7-2.4); Potassium 3.9 mmol/L (3.5-5.1); Sodium 141.0 mmol/L (136-145)
--- NOTE | 2024-11-22 06:50 | Hospitalist Progress Note ---
Date of Service November 22, 2024 Assessment & Plan (1) Small bowel obstruction: (2) Urinary symptom or sign: (3) Sepsis: (4) Hypoxia: (5) ROQUE (acute kidney injury): (6) Elevated troponin: (7) Elevated LFTs: (8) Seizures: (9) Chronic kidney disease: (10) Undifferentiated schizophrenia: (11) Autism: (12) Hypothyroidism (acquired): (13) Seizure: (14) Hypocalcemia: Plan Pt is a 64 yo male with with PMH of autism, schizophrenia, non verbal status, seizure disorder, hypothyroidism, HLD, GERD and CKD who had exploratory laparotomy for foreign body in ileum on 11/15/2024. Has been stable post- operatively. NPO and NG tube continued for significant drainage on NG. Surgery team following. Change Consultant updated on 11/18. #S/P Laparotomy for SBO d/t foreign body D4. S/P emergent exploratory surgery( 11/15/2024). Post op Hb: 11.5gm%( STABLE) Stable electrolytes with ongoing PPN. WBCs: 13.95(elevated than before) , plan: CRP, Procal, Chest XR CRP/ Procal: 4.64/ 1.38 Repeat XR KUB to see bowel status. C Diff ordered. Blood cultures : NO GROWTH Pathology report: Unremarkable except for inflammations, no tumor Plan: *Surgery recs: Remain NPO Continue NGT to intermittent suction per surgery. Significant brown content coming out. 1000 ml in last 24 hours. - PPN(11/17); D5 - Recommend continued chest physiotherapy. - Pain mgmt: Dilaudid and Tylenol HUNG. Seems adequate. - Post- Op antibiotics: Continue Rocephin and Flagyl for anaerobic coverage. Plan for 7 days( complete on 11/22) unless any change in clinical course. #ROQUE on CKD Improving. - Cr:0.77 today. - PPN Nutrition replacement has shown drastic change, anticipate stability. #Deranged LFT/ PT INR *Likely caused from ischemia secondary to severe dehydration and volume depletio n/decreased nutrition Improving pattern No suspicious finding on imaging preop. Likely will resolve with time. Repeat LFTs alternate day. #Seizure disorder No recent seizure. Home Oral med held while NPO. IV Phenytoin 100 mg QID ongoing. Phenytoin level: 8 (just closer to normal) ; we will continue Phenytoin QID for now. Repeat phenytoin level along with Albumin; pending #Anxiety and mood disorder Meds on hold while NPO. Patient Does not appear overtly anxious currently. Plan to resume meds after NPO Dced. #h/o high dose clonazepam use Patient was using 1 mg Clonazepam QID at home; held now d/t NPO status. Lorazepam 2 mg QID for preventing withdrawal. Chronic 1.Hypothyroidism TSH: 1.6(Mar 2024) - Consider Synthroid to IV by 11/21/2024. - Per pharm we can hold Synthroid upto 7 days given 1/2 life of this duration. LINES/IV ACCESS - PIV, NGT, Dugan DVT PROPHYLAXIS - SCDS, LMWH 40 mg SC QPM Code: Full Admission and Anticipated Discharge Date Admission Date: November 15, 2024 Review of Systems Review of Systems: As per HPI Physical Exam Physical Exam: General: Lying propped up in bed. Looks overall comfortable. Pneumatic compression in situ in BL legs. Chest: Equal chest rise BL, decreased air entry BL lower bases,no accessory muscle use, clear on auscultation Bilaterally. Cardiac: [id number],Tele: NSR, no JVD, mild edema peripheral edema. GI: Abdominal binder in place, no soakage noted on visible dressing, Normal Bowel sound noted. Neuro: RRR pupil BL, UL LL; good tone, Can't access sensory status. Results & Data Results & Data Vital Signs (Past 12 Hours) Vital Signs Temp Pulse Pulse Resp BP Pulse Ox O2 Del Method 11/22/24 03:41 37.1 C 105 H 24 118/80 95 Room Air 11/22/24 00:00 108 H 11/21/24 22:43 36.9 C 109 H 18 146/100 H 94 Room Air 11/21/24 21:56 108 H 11/21/24 19:45 Room Air 11/21/24 19:29 37.0 C 111 H 20 138/85 92 Room Air (9) Chronic kidney disease Chronic kidney disease stage: unspecified stage Qualified Code(s): N18.9 - Chronic kidney disease, unspecified
--- NOTE | 2024-11-22 06:55 | Hospitalist Progress Note ---
Date of Service November 22, 2024 Assessment & Plan (1) Small bowel obstruction: (2) Urinary symptom or sign: (3) Sepsis: (4) Hypoxia: (5) ROQUE (acute kidney injury): (6) Elevated troponin: (7) Elevated LFTs: (8) Seizures: (9) Chronic kidney disease: (10) Undifferentiated schizophrenia: (11) Autism: (12) Hypothyroidism (acquired): (13) Seizure: (14) Hypocalcemia: Plan Pt is a 64 yo male with with PMH of autism, schizophrenia, non verbal status, seizure disorder, hypothyroidism, HLD, GERD and CKD who had exploratory laparotomy for foreign body in ileum on 11/15/2024. Has been stable post- operatively. NPO and NG tube continued for significant drainage on NG. Surgery team following. County Auditor updated on 11/18. #S/P Laparotomy for SBO d/t foreign body: 11/15/2024 Post op Hb: 11.5gm%( STABLE) Stable electrolytes with ongoing PPN. WBCs: 18 k,up trending, CRP: up trending CRP/ Procal: resent. Repeat XR KUB reports stable. C Diff pending Blood cultures : NO GROWTH Pathology report: Unremarkable except for inflammations, no tumor Plan: *Surgery recs: Remain NPO Continue NGT to intermittent suction per surgery. Significant brown content coming out. - PPN(11/17); D6 - Recommend continued chest physiotherapy. - Pain mgmt: Dilaudid and Tylenol HUNG. Seems adequate. - Post- Op antibiotics: 7 day Rocephin and Flagyl completed (11/22) *CT AP oral+ IV contrast: r/o intraabdominal abscess vs anastomotic leakage. #ROQUE on CKD ROQUE Improved #Deranged LFT/ PT INR *Likely caused from ischemia secondary to severe dehydration and volume depletion/decreased nutrition Improving pattern No suspicious finding on imaging preop. Likely will resolve with time. Repeat LFTs alternate day. #Seizure disorder No recent seizure. Home Oral med held while NPO. IV Phenytoin 100 mg QID ongoing. Phenytoin level: 8 Repeat sent: pending. #Anxiety and mood disorder Meds on hold while NPO. Patient Does not appear overtly anxious currently. Plan to resume meds after NPO Dced. #h/o high dose clonazepam use Patient was using 1 mg Clonazepam QID at home; held now d/t NPO status. Lorazepam 2 mg QID for preventing withdrawal. Chronic 1.Hypothyroidism TSH: 1.6(Mar 2024) - Consider Synthroid 35 mcg IV Q 72 hours started for prolonged NPO. LINES/IV ACCESS - PIV, NGT, Dugan DVT PROPHYLAXIS - SCDS, LMWH 40 mg SC QPM Code: Full Admission and Anticipated Discharge Date Admission Date: November 15, 2024 Supervising Physician Co-Signing Physician Notes Dr. Riley was resident physician during care of patient. I separately evaluated patient for [place] portions of the history and the exam. I was present during the critical portion of medical decision making, and I discussed the case with the resident. I generally agree with the findings and plan. Patient was successfully extubated 11/16 and now on room air. He was awake and did track with his eyes and but continues to be nonverbal at baseline. Con tinues on NG tube intermittent suction. Patient had a bowel movement 2 days ago and then had another one today. Patient removed NG tube yesterday and peripheral line. Had to replace. Given worsening Leukocytosis now 18 k, will obtain a CT scan of abd/pelvis: to check for an abscess/ anastomotic leak. D/W general surgery. continue current antibiotics. Reviewed imaging: still showing SBO. no abscess, will repeat KUB. This is a complex case given that patient is on PPN, still with a partial SBO. His pulmonary exam had diminished breath sounds at the bases likely from some splinting which could also be from his abdominal binder or his recent surgery. He has active bowel sounds Status post exploratory lap with resection of small bowel due to foreign body obstruction. NGT drainage prevents oral intake, on PPN. Monitoring electrolytes. Continue with supportive care Added lorazepam for withdrawal. Subjective Remains non vocal. Per RN, no bowel movement last night and so far today. Pt feels warm but no fever, mild cough,No SOB, no abnormal breathing. Review of Systems Review of Systems: As per HPI Physical Exam Physical Exam: General: Lying propped up in bed. Looks overall comfortable. Chest: Equal chest rise BL, decreased air entry, coarse breath sound, no accessory muscle use. Cardiac: [id number],Tele: NSR, no JVD, mild peripheral edema. GI:No soakage noted on visible dressing, Non distended, Normal Bowel sound noted Skin: No rashes Results & Data Results & Data Vital Signs (Past 12 Hours) Vital Signs Temp Pulse Pulse Resp BP Pulse Ox O2 Del Method 11/22/24 03:41 37.1 C 105 H 24 118/80 95 Room Air 11/22/24 00:00 108 H 11/21/24 22:43 36.9 C 109 H 18 146/100 H 94 Room Air 11/21/24 21:56 108 H 11/21/24 19:45 Room Air 11/21/24 19:29 37.0 C 111 H 20 138/85 92 Room Air Resident Activity Tracking Resident Involvement: Resident Care Provided Care Provided: Adult Hospital Medicine (9) Chronic kidney disease Chronic kidney disease stage: unspecified stage Qualified Code(s): N18.9 - Chronic kidney disease, unspecified
--- NOTE | 2024-11-22 09:15 | XRay Report ---
EXAM: XR KUB/Abdomen 1 view CLINICAL HISTORY: ileus TECHNIQUE: X-ray images of the abdomen were obtained in supine and upright positions. COMPARISON: Comparison was made to study dated 11/21/2024. FINDINGS: The NG tube is well positioned, and the tip is curving below the left diaphragm in the gastric cavity, unchanged. Gas Pattern: There is multiple bowel loop dilatation, mainly detected in the left upper quadrant (nearly unchanged). Soft Tissues: The soft tissues of the abdomen appear normal, without evidence of masses or calcifications. The liver, spleen, and kidneys are of normal size and position. There are hazy patches in the right lower lung zones. An external ECG lead is seen. Multiple surgical jimy are seen in the mid-abdomen. IMPRESSION: 1. There is nearly unchanged multiple bowel loop dilatation. 2. An NG tube in proper position, unchanged. Electronically signed by Audie Falk 11-22-2024 09:15 AM
[2024-11-22 10:31] LABS: Base Excess VBG 1.5 mEq/L; HCO3 VBG 25 mmol/L; Oxygen Saturation VBG 71.2 %; PCO2 VBG 34 mmHg (38-50); PO2 VBG 40 mmHg; pH VBG 7.47 (7.36-7.41)
[2024-11-22 10:47] LABS: Alanine Aminotransferase 61.0 U/L (7-52); Albumin Level 3.2 gm/dl (3.4-5.0); Alkaline Phosphatase 79.0 U/L (34-104); Bilirubin,Total 0.9 mg/dl (0.2-1.0); Total Protein 6.2 gm/dl (6.0-8.3)
--- NOTE | 2024-11-22 11:14 | Surgery Progress Note ---
Date of Service November 22, 2024 Assessment & Plan (1) Ileus: Plan: WBC elevated; check CT scan abdominal exam improved con't NG increase IVF Admission and Anticipated Discharge Date Admission Date: November 15, [address] KUB with ileus pattern Review of Systems Constitutional: no fever Physical Exam Constitutional: WD/WN, vitals as above Eyes: no scleral abnormality Respiratory: normal respiratory effort Cardiovascular: Rate/Rhythm: + tachycardic Gastrointestinal (Abdomen): Inspection/Auscultation: abdomen normal to inspection and normal bowel sounds; abdomen not distended Percussion/Palpation: abdomen soft; abdomen nontender Musculoskeletal: Head/Neck/Chest: normocephalic and head atraumatic Skin: no rashes, warm and dry Results & Data Vital Signs (Past 12 Hours) Vital Signs Temp Pulse Pulse Resp BP BP Pulse Ox 11/22/24 11:01 36.9 C 110 H 19 126/75 95 11/22/24 08:00 11/22/24 08:00 108 H 11/22/24 07:26 37.1 C 108 H 19 128/81 94 11/22/24 03:41 37.1 C 105 H 24 118/80 95 11/22/24 00:00 108 H O2 Del Method 11/22/24 11:01 Room Air 11/22/24 08:00 Room Air 11/22/24 08:00 11/22/24 07:26 Room Air 11/22/24 03:41 Room Air 11/22/24 00:00
[2024-11-22] MEDS: OPTIRAY 320 100ml IV ONE (14:31)
[2024-11-22] MEDS: LEVOTHYROXINE SODIUM 35 MCG in SYRINGE 0 ML IV SCH (14:59)
[2024-11-22] MEDS: PERIPHERAL TPN IV SCH (15:01)
[2024-11-22] MEDS: [UNRECOGNIZED DRUG - OTHER] IV SCH (15:01)
--- NOTE | 2024-11-22 15:53 | CT Scan Report ---
EXAMINATION: CT of the abdomen and pelvis performed after the administration of IV contrast. TECHNIQUE: Helical CT images from the lung bases through the symphysis pubis were obtained with contrast. Coronal and sagittal reformatted images were generated at a workstation for further assessment. Dose reduction techniques were achieved by using automatic exposure control and/or adjustment of mA and/or kV according to patient size and/or use of iterative reconstruction technique. HISTORY: Sm status post small all bowel obstruction anastomosis concern for abscess and leak. COMPARISON: November 22, [address] single abdomen view and CT abdomen and pelvis November 15, 2024. Study report not available at the time of dictation. FINDINGS: File Conversion Operator film demonstrates increased gas distended loops of small bowel disproportionate to large bowel. Midline skin jimy. Gastric intubation tube. Lung windows demonstrate portions of the exam to be limited secondary to respiratory motion. Subpleural reticular nodular densities along the left pulmonary base. These are of uncertain etiology. These are difficult to appreciate with certainty on prior exam. Additional likely bibasilar subsegmental atelectasis. Soft tissue windows demonstrate trace bilateral pleural effusions. Gastric intubation tube with sideport tip within the gastric viscus. Enteric contrast is on board. Subtle small 1.2 cm diameter focus of increased vascularity inferior lateral posterior spleen. Question hemangioma. No abnormality at this level on the previous noncontrast exam. Prominent urinary bladder wall thickness. Independent gas densities within the urinary bladder. Correlate with recent instrumentation. Prominent prostate with median lobe hypertrophy. Uncomplicated large bowel diverticulosis. Appendix is within normal limits. Radiopaque staple line right lower abdominal quadrant small bowel. Proximal to the anastomosis near is increased air-fluid distended loops of small bowel. Small bowel distal to the anastomosis is decompressed. Small amount of fluid within the lower abdomen adjacent to the distal segments of small bowel. No discrete extravasation of contrast although difficulty appreciating contrast extending to this level. No surrounding fluid collections or gas. Anterior midline incision. Mild elements of fluid and fat stranding. No discrete drainable fluid collection. No free air. Bone windows demonstrate mild degenerative changes of the spine. No appreciated acute process. IMPRESSION: 1. Right lower abdominal quadrant small bowel anastomosis with increased air-fluid distended loops proximal to the anastomosis consistent with at least partial small bowel obstruction. Small bowel is decompressed distal to the anastomosis. No discrete mass or rich edema. Etiology for obstruction is uncertain. Stricture not entirely excluded. Spasm not excluded. Small amount of nonspecific fluid adjacent to the post anastomotic small bowel loops. No discrete extravasation of contrast although there is difficulty appreciating contrast extending to the level of the anastomosis. No free air or fluid collection to suggest abscess. 2. Likely mild elements of subsegmental ectasis with trace bilateral pleural effusions. 3. Very small slightly hypervascular nodule of the spleen. Question hemangioma. Ultrasound would be helpful for further characterization if indicated. 4. Enlarged prostate with mild median lobe hypertrophy and thickened urinary bladder wall. Element of bladder wall outlet obstruction is not excluded. No discrete mass. Small focus of independent gas within the urinary bladder may be secondary to instrumentation. Etiology otherwise uncertain. Please see above for details. Electronically signed by Will Syed 11-22-2024 3:52 PM
--- NOTE | 2024-11-22 16:46 | Billing Data ---
Date of Service November 21, 2024 Coding Level of Care Code 94410 SUB INP/OBS CARE MIN
--- NOTE | 2024-11-22 17:05 | Billing Data ---
Date of Service November 22, 2024 Coding Level of Care Code 87902 SUB INP/OBS CARE MIN
[2024-11-23 06:32] LABS: Hematocrit (blood only) 37.1 % (42.0-52.0); Hemoglobin 12.5 g/dl (14.0-18.0); Immature Granulocytes # (auto) 0.28 K/uL (0.01-0.20); Immature Granulocytes % (auto) 1.5 %; Mean Corpuscular Hemoglobin 28.5 pg (25.0-34.0); Mean Corpuscular Volume 84.5 fL (80.0-100.0); Platelet Count 461 K/uL (130-400); RDW Standard Deviation 39.3 fL (36.4-46.3); Red Blood Count 4.39 M/uL (4.70-6.10); White Blood Count 18.49 K/ul (4.8-10.8)
--- NOTE | 2024-11-23 06:49 | Hospitalist Progress Note ---
Date of Service November 23, 2024 Assessment & Plan (1) Small bowel obstruction: (2) Urinary symptom or sign: (3) Sepsis: (4) Hypoxia: (5) ROQUE (acute kidney injury): (6) Elevated troponin: (7) Elevated LFTs: (8) Seizures: (9) Chronic kidney disease: (10) Undifferentiated schizophrenia: (11) Autism: (12) Hypothyroidism (acquired): (13) Seizure: (14) Hypocalcemia: (15) Superficial venous thrombosis of arm: (16) Superficial venous thrombosis of both arms: Plan 64 yo male with with PMH of autism, schizophrenia, non verbal status, seizure disorder, hypothyroidism, HLD, GERD and CKD who had exploratory laparotomy for foreign body in ileum on 11/15/2024. NPO and NG tube continued for significant drainage on NG. WBCs has been trending up along with inflammatory marker. Awaiting Blood/ Urine CS. C diff negative. CAT scan indicating partial SBO proximal to anastomosis site. Chest XR is stable. He looks moldly dehydrated this AM, Fluids in addition to PPN started. Upgrade antibiotic to Zosyn for rising WBCs. Surgery team following. Escrow Officer updated on 11/18. #S/P Laparotomy for SBO d/t foreign body: 11/15/2024 Post op Hb: 11.5gm%( STABLE) Stable electrolytes with ongoing PPN. WBCs: 18K, up-trending, CRP: up-trending Procal : 0.8 C Diff: Neg Blood cultures : NO GROWTH Pathology report: Unremarkable except for inflammations, no tumor Plan: - PPN(11/17); D7, NG out for trial today, anticipate tolerance- will continue PPN today. - Recommend continued chest physiotherapy. Chest percussion therapy. - Hypertonic saline Nebu BID. - Pain mgmt: Tylenol PO PRN. Dilaudid stopped. - Add fluid 125ml/hr: 1 L today on top of PPN. Neg balance almost 200 in last 24 hour. - Start Zosyn for GI coverage given up trending WBCs and CRP. #Superficial Venous thrombosis in BL arm - Conservative management with warm compression now. - Pt already on prophylactic Lovenox. No DVT on Doppler. #ROQUE on CKD ROQUE Improved #Deranged LFT/ PT INR Improving #Seizure disorder No recent seizure. Home Oral med held while NPO. IV Phenytoin 100 mg QID ongoing. #Anxiety and mood disorder Clonazepam now, home med held until NPO #h/o high dose clonazepam use Patient was using 1 mg Clonazepam QID at home; held now d/t NPO status. Lorazepam 2 mg QID for preventing withdrawal. #Hypothyroidism: TSH: 1.6(Mar 2024); Synthroid 35 mcg Q 72 hours. DVT ppx: Lovenox 40, OOB now, PT ongoing. Dispo: DC home once stable, has full stack software developer care aide at residence. Admission and Anticipated Discharge Date Admission Date: November 15, 2024 Supervising Physician Co-Signing Physician Notes I personally examined the patient and verified all [place] points of history and exam, discussed case, and agree with decision making with Dr Riley Awake, shakes my hand and grunts and unintelligible words but in a conversational mabel. Nursing notes no problems. NG tube has been out for a while before I saw himno worsening belly pain no nausea no vomiting. Vitals noted, in general he is awake and alert pleasant no distress. HEENT normocephalic atraumatic mucous membranes moist. Abdomen soft nondistended nontender no masses or organomegaly, incision is dressed. SBO with severe sepsis present on admissionstatus post laparotomy and bowel resection. Slowly doing better. Serial exams, continue Zosyn. Inflammatory markers are a bit nonspecifichis overall presentation is reassuring. Continue antibiotics and follow labs. Clear liquid diet. Otherwise as above. Subjective Remains non vocal. Very Pleasant this AM, wants to hold hand and look like he wants to express something. Bedside RN mentioned significant ON drainage in NG, still brownish color. No fever, leg swelling, rashes. Keeps pulling NG and IVs on and off. Had good bowel movement this AM. Endorses cough. C diff sent this AM. Review of Systems Review of Systems: As per HPI Physical Exam Physical Exam: Constitutional: Remains non verbal, grabs hand looking like wants to express sth, No acute distress HEENT: Atraumatic, Normocephalic, No conjunctival injection CVS: S1 S2 no murmur, Regular Rhythm, no LE edema Respiratory: BL decreased air entry with diffuse rattles. No rhonchi, wheezes, or crackles. No increased work of breathing GI: Soft, Nondistended, Nontender, midline incision site dry, with jimy intact, no drainage on pressure, no swelling, redness, Bowel sounds noted. MSK: No gross deformities noted Skin: Warm, Dry, Erythema and swelling noted in PIV sites in BL cubital area. Neuro: No Focal deficit Results & Data Results & Data Vital Signs (Past 12 Hours) Vital Signs Temp Pulse Pulse Resp BP Pulse Ox O2 Del Method 11/23/24 03:11 37.1 C 108 H 18 128/79 94 Room Air 11/22/24 23:48 36.7 C 117 H 18 115/77 93 Room Air 11/22/24 23:18 108 H 11/22/24 19:47 36.8 C 112 H 18 119/72 94 Room Air 11/22/24 19:24 Room Air Resident Activity Tracking Resident Involvement: Resident Care Provided Care Provided: Adult Hospital Medicine (9) Chronic kidney disease Chronic kidney disease stage: unspecified stage Qualified Code(s): N18.9 - Chronic kidney disease, unspecified
[2024-11-23 07:43] LABS: Anion Gap 8.0 (3-11); Blood Urea Nitrogen 32.0 mg/dl (6-23); Calcium 8.6 mg/dl (8.6-10.3); Carbon Dioxide 24.0 mmol/L (21-32); Chloride 108.0 mmol/L (98-107); Creatinine Clr Calc Pharmacy 82.2 ml/min; Glucose 119.0 mg/dl (70-99(Fasting)); Magnesium 1.9 mg/dl (1.7-2.4); Potassium 3.9 mmol/L (3.5-5.1); Sodium 140.0 mmol/L (136-145)
--- NOTE | 2024-11-23 07:52 | Surgery Progress Note ---
Date of Service November 23, 2024 Assessment & Plan (1) Small bowel obstruction: Plan: POD#8 s/p Exploratory Laparotomy, small bowel resection, and anastomosis by Dr. Stewart Patient on room air, afebrile. HRs 100-110s Labs this AM show WBC 18 (18) CT scan was performed yesterday that showed concern for partial SBO about anastomotic site, no evidence of discrete extravasation This AM pt had a BM. His abdomen is soft, non distended, appears in no tenderness to palpation NGT draining 450cc overnight Will obtain KUB for more information, but we could consider clamp trial vs removal if looks okay Pt has superficial venous thrombus of left arm, + erythema and some swelling noted Encourage ambulation, pulmonary toilet, DVT prophylaxis ordered His abx course seems to have been completed yesterday, will evaluate need for further if WBC continues to increase. blood cx NGTD, cdiff pending Admission and Anticipated Discharge Date Admission Date: November 15, 2024 Subjective Patient resting in bed. Appears in no acute distress. Reaches out to hold my hand. Physical Exam Physical Exam: awake, appears in no distress Gastrointestinal (Abdomen): Inspection/Auscultation: + abdominal surgical incision (c/d/i with midline jimy, no signs of infection); abdomen not distended Percussion/Palpation: abdomen soft; abdomen nontender (appears non tender) Results & Data Vital Signs (Past 12 Hours) Vital Signs Temp Pulse Pulse Resp BP Pulse Ox O2 Del Method 11/23/24 03:11 98.8 F 108 H 18 128/79 94 Room Air 11/22/24 23:48 98.1 F 117 H 18 115/77 93 Room Air 11/22/24 23:18 108 H 11/22/24 19:47 98.2 F 112 H 18 119/72 94 Room Air PG Care Time/CCT Total # of Minutes Spent Total Time Spent with Patient: Total time spent is greater than 50% in coordination of care (as documented) at patient's floor/unit and/or counseling patient: Coding Level of Care Code 16495 Post Operative Follow-Up Diagnoses Small bowel obstruction K56.609
[2024-11-23 08:00] LABS: Cdiff Toxin B Gene (2yr or >) Negative Cdiff Gene (Neg)
--- NOTE | 2024-11-23 08:45 | XRay Report ---
XR chest 1V portable CLINICAL HISTORY: Coarse breath sounds COMPARISON STUDY: 11/21/2024 FINDINGS: Nasogastric tube tip is in the proximal stomach. There is stable mild cardiomegaly without pulmonary vascular congestion. Inspiration is shallow. There is stable mild stranding opacity at the left lung base which could represent atelectasis. No other consolidation or pleural effusion. No pneu mothorax. IMPRESSION: Stable exam. ACT 112: Negative or not required by law. Electronically signed by: Leonard Lozano M.D. 11/23/2024 8:44 AM
--- NOTE | 2024-11-23 08:46 | XRay Report ---
KUB HISTORY: eval bowel/gas pattern COMPARISON STUDY: 11/22/2024 FINDINGS: There is diffuse small bowel distention measuring up to 5.5 cm diameter, grossly stable. No colonic distention seen. Nasogastric tube tip is in the proximal stomach. IMPRESSION: Grossly stable small bowel distention. ACT 112: Negative or not required by law. The above report was generated using voice recognition software. It may contain grammatical, syntax o r spelling errors. Electronically signed by: Leonard Lozano M.D. 11/23/2024 8:45 AM
[2024-11-23] MEDS: LACTATED RINGER'S 1,000 ML IV SCH (09:29)
--- NOTE | 2024-11-23 09:54 | Pharmacy Report ---
Pharmacy PN Follow-up Note - Date of Service November 23, 2024 - Subjective Patient is currently on day #7 of PPN for SBO. - Objective Height & Weight (Last Documented) Height 5 ft 5 in Weight 72 kg Diet Order(s) 11/15/24 15:49 NPO Intake & Ouput (24hrs) 11/22/24 11/23/24 11/24/24 06:59 06:59 06:59 Intake Total 2354 / 2354 2104 / 2104 Output Total 2400 / 2400 2301 / 2301 Balance -46 / -46 -197 / -197 Selected Laboratory Results 11/22/24 11/23/24 10:13 05:52 Sodium 140 Potassium 3.9 Chloride 108 H Carbon Dioxide 24 Anion Gap 8 BUN 32 H Creatinine 0.80 BUN/Creatinine Ratio 40.0 H Glucose 119 H Calcium 8.6 Phosphorus 3.4 Magnesium 1.9 Total Bilirubin 0.9 AST 46 H ALT 61 H Alkaline Phosphatase 79 - Assessment & Plan Assessment: POD #8 exploratory laparotomy, small bowel resection, and anastomosis. CT performed 11/22 showed at least partial SBO at anastomotic site. NGT continues to have significant drainage. + BM today. To continue PPN for now. Plan: * For Day #7 of PPN administration, the following will be ordered: * Macronutrients: * Amino Acids: 85 grams/day * Dextrose: 100 grams/day * Lipids: 0 grams/day--continue to hold for increased triglycerides * Micronutrients: * TPN electrolytes: 0 mL/day Contains 35 mEq Na, 20 mEq K, 4.5 mEq Ca, 5 mEq Mg, 35 mEq Cl, 29.5 mEq Acetate per 20 mL * Sodium phosphate: 0 mMol/day * Sodium chloride: 20 mEq/day * Sodium acetate: 100 mEq/day * Potassium phosphate: 30 mMol/day * Potassium chloride: 15 mEq/day * Potassium acetate: 15 mEq/day * Magnesium sulfate: 8.12 mEq/day * Calcium gluconate: 4.65 mEq/day * Multivitamins: 10 mL/day * Trace elements: 1 mL/day * Thiamine: 100 mg/day * Total volume of 2107 mL will be infused over 24 hours and will provide 680 kcal/day * Patient is on PPN which has a maximum mOsm/L of 900. Final osmolarity of current solution is 825.3 mOsm/L. * Labs will be ordered per PN protocol. * Pharmacy will follow and adjust PN orders on a daily basis. Thank you!
[2024-11-23] MEDS: 4.5GM X1 IV STA (10:42)
[2024-11-23] MEDS: SODIUM CHLORIDE 0.9% 1,000 ML IV SCH (10:42)
[2024-11-23] MEDS: METOCLOPRAMIDE HCL INJ 5 MG/ML 2 ML VIAL IV SCH (11:12)
[2024-11-23] MEDS ORDERED: ACETAMINOPHEN 325 MG TAB PO PRN (12:46)
[2024-11-23] MEDS: PIPERACILLIN/TAZOBACTAM 4.5 GM/100 ML BAG IV SCH (14:50)
--- NOTE | 2024-11-23 15:11 | Billing Data ---
Date of Service November 23, 2024 Coding Level of Care Code 02799 SUB INP/OBS CARE
[2024-11-23] MEDS: PERIPHERAL TPN IV SCH (15:58)
[2024-11-23] MEDS: [UNRECOGNIZED DRUG - OTHER] IV SCH (15:58)
[2024-11-23] MEDS: ACETAMINOPHEN 325 MG TAB PO SCH (18:24)
[2024-11-23] MEDS: SODIUM CHLOR 7% 4 ML NEB NEB SCH (20:27)
[2024-11-24 06:12] LABS: Hematocrit (blood only) 31.4 % (42.0-52.0); Hemoglobin 10.5 g/dl (14.0-18.0); Immature Granulocytes # (auto) 0.16 K/uL (0.01-0.20); Immature Granulocytes % (auto) 1.0 %; Mean Corpuscular Hemoglobin 28.5 pg (25.0-34.0); Mean Corpuscular Volume 85.3 fL (80.0-100.0); Platelet Count 453 K/uL (130-400); RDW Standard Deviation 39.0 fL (36.4-46.3); Red Blood Count 3.68 M/uL (4.70-6.10); White Blood Count 15.45 K/ul (4.8-10.8)
[2024-11-24 06:25] LABS: Anion Gap 5.0 (3-11); Blood Urea Nitrogen 28.0 mg/dl (6-23); Calcium 8.0 mg/dl (8.6-10.3); Carbon Dioxide 24.0 mmol/L (21-32); Chloride 106.0 mmol/L (98-107); Creatinine Clr Calc Pharmacy 83.3 ml/min; Glucose 106.0 mg/dl (70-99(Fasting)); Magnesium 1.8 mg/dl (1.7-2.4); Potassium 3.8 mmol/L (3.5-5.1); Sodium 135.0 mmol/L (136-145)
--- NOTE | 2024-11-24 07:06 | Hospitalist Progress Note ---
Date of Service November 24, 2024 Assessment & Plan (1) Small bowel obstruction: (2) Urinary symptom or sign: (3) Sepsis: (4) Hypoxia: (5) ROQUE (acute kidney injury): (6) Elevated troponin: (7) Elevated LFTs: (8) Seizures: (9) Chronic kidney disease: (10) Undifferentiated schizophrenia: (11) Autism: (12) Hypothyroidism (acquired): (13) Seizure: (14) Hypocalcemia: (15) Superficial venous thrombosis of arm: (16) Superficial venous thrombosis of both arms: Plan 64 yo male with with PMH of autism, schizophrenia, non verbal status, seizure disorder, hypothyroidism, HLD, GERD and CKD who had exploratory laparotomy for foreign body in ileum on 11/15/2024. NPO and NG tube continued for significant drainage on NG. WBCs has been trending up along with inflammatory marker. Awaiting Blood/ Urine CS. C diff negative. CAT scan indicating partial SBO proximal to anastomosis site. Chest XR is stable. He looks moldly dehydrated this AM, Fluids in addition to PPN started. Upgrade antibiotic to Zosyn for rising WBCs. Surgery team following. Berry Picker updated on 11/18. #S/P Laparotomy for SBO d/t foreign body: 11/15/2024 9th POD Doing well Tolerated PO last night--> advance diet to full liquid today. Stop PPN. Stable electrolytes Continue chest percussion therapy. Hypertonic saline Nebu BID. Continue all home PO meds Continue Zosyn X 48 hours. Pain mgmt: Tylenol PO PRN. Dilaudid stopped. #Superficial Venous thrombosis in BL arm - Conservative management with warm compression now. - Pt already on prophylactic Lovenox. No DVT on Doppler. #ROQUE on CKD ROQUE Improved #Deranged LFT/ PT INR Improving #Seizure disorder No recent seizure. Home med resumed, #Anxiety and mood disorder Stable, home med resumed #h/o high dose clonazepam use 1 mg Clonazepam QID resumed. Stop lorazepam. #Hypothyroidism: TSH: 1.6(Mar 2024) Resume home synthroid. DVT ppx: Lovenox 40, OOB now, PT ongoing. Dispo: DC home once stable, has timekeeper child care director at residence. Admission and Anticipated Discharge Date Admission Date: November 15, 2024 Supervising Physician Co-Signing Physician Notes I personally examined the patient and verified all [place]ca points of history and exam, discussed case, and agree with decision making with Dr Riley No meaningful HPI review of systems obtainable from patient, however, he is bright, makes eye contact, vaguely voices that he feels good, and shakes my hand both whenever I enter the room and when I am leaving. Nursing notes that he tolerated clear liquids well, had no appearance of abdominal pain/nausea/vomiting, and had a bowel movement. Vitals noted, in general he is awake and alert pleasant no distress. HEENT normocephalic atraumatic mucous membranes moist. Abdomen soft Very mildly distended nontender no masses or organomegaly, incision is dressed. SBO with severe sepsis present on admissionstatus post laparotomy and bowel resection. Slowly doing better. Serial exams, continue Zosyn. Inflammatory markers are a bit nonspecific, but improving, and his overall presentation is reassuring. Continue antibiotics and follow labs. advance to full liquid diet. Otherwise as above. Subjective Remains non vocal. Looks very comfortable and pleasant to me this AM. Per RN bedside, had good bowel movement today. No fever, chills. Tolerating clear liquid diet, No vomiting. Review of Systems Review of Systems: As per HPI Physical Exam Physical Exam: Constitutional: Remains non verbal, pleasant looking, No acute distress HEENT: Atraumatic, Normocephalic, No conjunctival injection CVS: S1 S2 no murmur, Regular Rhythm, no LE edema Respiratory: BL equal air entry with diffuse rattles. No rhonchi, wheezes, or crackles. No increased work of breathing GI: Soft, Nondistended, Nontender, midline incision site dry, with jimy intact, no drainage on pressure, no swelling or redness, Normal Bowel sounds noted. MSK: No gross deformities noted Skin: Warm, Dry, Erythema and swelling noted in PIV sites in BL cubital area; improving. Neuro: No Focal deficit Results & Data Results & Data Vital Signs (Past 12 Hours) Vital Signs Temp Pulse Pulse Resp BP BP Pulse Ox 11/24/24 03:06 36.7 C 89 18 128/72 95 11/23/24 23:23 36.7 C 103 H 16 118/75 97 11/23/24 23:00 94 H 11/23/24 20:27 104 H 16 95 11/23/24 19:32 11/23/24 19:26 37.1 C 104 H 20 118/82 96 O2 Del Method 11/24/24 03:06 Room Air 11/23/24 23:23 Room Air 11/23/24 23:00 11/23/24 20:27 Room Air 11/23/24 19:32 Room Air 11/23/24 19:26 Room Air Resident Activity Tracking Resident Involvement: Resident Care Provided Care Provided: Adult Hospital Medicine (9) Chronic kidney disease Chronic kidney disease stage: unspecified stage Qualified Code(s): N18.9 - Chronic kidney disease, unspecified
--- NOTE | 2024-11-24 09:12 | Billing Data ---
Date of Service November 24, 2024 Coding Level of Care Code 26573 SUB INP/OBS CARE
--- NOTE | 2024-11-24 11:22 | Surgery Progress Note ---
Date of Service November 24, 2024 Assessment & Plan (1) SBO (small bowel obstruction): Plan POD#9 s/p Exploratory Laparotomy, small bowel resection, and anastomosis by Patient appears to be clinically improving, having bowel movements, antibiotics restarted, would recommend a 48 hr course, possible bacterial translocation from the hyperemic bowel at the time of surgery, agree with advancing diet as tolerated. Discharge planning Admission and Anticipated Discharge Date Admission Date: November 15, 2024 Subjective Patient appears comfortable, sitting in chair. Nursing reports that he did have a large bowel movement. Review of Systems Review of Systems: 12 point review of systems negative exce pt as mention above Physical Exam Constitutional: WD/WN, vitals as above Respiratory: Normal respiratory effort Gastrointestinal (Abdomen): Abdomen is soft and nondistended nontender, incision healing well Results & Data Vital Signs (Past 12 Hours) Vital Signs Temp Pulse Pulse Resp BP BP Pulse Ox 11/24/24 08:00 88 11/24/24 07:32 36.7 C 100 H 18 128/76 97 11/24/24 07:19 103 H 20 97 11/24/24 03:06 36.7 C 89 18 128/72 95 11/23/24 23:23 36.7 C 103 H 16 118/75 97 O2 Del Method 11/24/24 08:00 11/24/24 07:32 Room Air 11/24/24 07:19 Room Air 11/24/24 03:06 Room Air 11/23/24 23:23 Room Air Laboratory Results Laboratory Results - last 24 hr 11/19/24 11/24/24 11/24/24 14:46 05:37 07:29 WBC 15.45 H RBC 3.68 L Hgb 10.5 L Hct 31.4 L MCV 85.3 MCH 28.5 MCHC 33.4 RDW Std Deviation 39.0 RDW Coeff of Igor 13.1 Plt Count 453 H MPV 9.5 Immature Gran % (Auto) 1.0 Neut % (Auto) 73.4 Lymph % (Auto) 16.9 Emery % (Auto) 6.9 Eos % (Auto) 1.4 Baso % (Auto) 0.4 Neut # (Auto) 11.33 H Lymph # (Auto) 2.61 Emery # (Auto) 1.07 H Eos # (Auto) 0.22 Baso # (Auto) 0.06 Immature Gran # (Auto) 0.16 Sodium 135 L Potassium 3.8 Chloride 106 Carbon Dioxide 24 Anion Gap 5 BUN 28 H Creatinine 0.79 Est Cr Clr Drug Dosing 83.3 eGFR 99.82 BUN/Creatinine Ratio 35.4 H Glucose 106 H POC Glucose 114 H Calcium 8.0 L Phosphorus 2.9 Magnesium 1.8 C-Reactive Protein 8.97 H Phenytoin See Scanned Report PG Care Time/CCT Total # of Minutes Spent Total Time Spent with Patient: Total time spent is greater than 50% in coordination of care (as documented) at patient's floor/unit and/or counseling patient: Coding Level of Care Code 60898 Post Operative Follow-Up Diagnoses SBO (small bowel obstruction) K56.609
[2024-11-24] MEDS: clonazePAM 1 MG TAB PO SCH (12:15)
[2024-11-24] MEDS: PROPRANOLOL HCL 20 MG TAB PO SCH (13:22)
[2024-11-24] MEDS: MIRTAZAPINE SOLTAB 15 MG PO SCH (20:32)
[2024-11-24] MEDS: PHENYTOIN SODIUM ER 100 MG CAP PO SCH (20:32)
[2024-11-25 06:16] LABS: Hematocrit (blood only) 32.3 % (42.0-52.0); Hemoglobin 11.2 g/dl (14.0-18.0); Immature Granulocytes # (auto) 0.14 K/uL (0.01-0.20); Immature Granulocytes % (auto) 0.9 %; Mean Corpuscular Hemoglobin 29.9 pg (25.0-34.0); Mean Corpuscular Volume 86.1 fL (80.0-100.0); Platelet Count 510 K/uL (130-400); RDW Standard Deviation 39.4 fL (36.4-46.3); Red Blood Count 3.75 M/uL (4.70-6.10); White Blood Count 16.25 K/ul (4.8-10.8)
[2024-11-25] MEDS: LEVOTHYROXINE SODIUM 50 MCG TABLET PO SCH (06:32)
[2024-11-25 06:37] LABS: Alanine Aminotransferase 41.0 U/L (7-52); Albumin Globulin Ratio 1.0 (0.9-2); Albumin Level 2.7 gm/dl (3.4-5.0); Alkaline Phosphatase 61.0 U/L (34-104); Anion Gap 4.0 (3-11); Bilirubin,Total 0.4 mg/dl (0.2-1.0); Blood Urea Nitrogen 14.0 mg/dl (6-23); Calcium 8.1 mg/dl (8.6-10.3); Carbon Dioxide 23.0 mmol/L (21-32); Chloride 110.0 mmol/L (98-107); Creatinine Clr Calc Pharmacy 96.3 ml/min; Globulin 2.8 gm/dl (2.5-4.0); Glucose 95.0 mg/dl (70-99(Fasting)); Potassium 4.0 mmol/L (3.5-5.1); Sodium 137.0 mmol/L (136-145); Total Protein 5.5 gm/dl (6.0-8.3)
--- NOTE | 2024-11-25 07:44 | Surgery Progress Note ---
Date of Service November 25, 2024 Assessment & Plan (1) SBO (small bowel obstruction): Plan POD#10 s/p Exploratory Laparotomy, small bowel resection, and anastomosis WBC 16 (15). Vitals are stable and patient afebrile His abdomen is soft, non distended, and incision c/d/i; can leave open to air He is tolerating full liquids and having + BMs Will advance to low fiber and see how he fairs Would consider continuing abx today for elevated WBC Admission and Anticipated Discharge Date Admission Date: November 15, 2024 Subjective Patient non verbal. Currently receiving a breathing treatment. Appears in no distress Physical Exam Physical Exam: awake, appears in no distress Gastrointestinal (Abdomen): Inspection/Auscultation: + abdominal surgical incision (c/d/i with midline jimy, no signs of infection); abdomen not distended Percussion/Palpation: abdomen soft; abdomen nontender (appears non tender) Results & Data Vital Signs (Past 12 Hours) Vital Signs Temp Pulse Resp BP BP Pulse Ox O2 Del Method 11/25/24 07:32 98.4 F 99 H 18 130/76 100 Nebulizer 11/25/24 07:13 101 H 19 96 Room Air 11/25/24 03:56 98.1 F 89 18 101/71 95 Room Air 11/24/24 23:09 98.8 F 101 H 18 122/81 95 Room Air 11/24/24 20:01 93 H 18 97 Room Air FiO2 11/25/24 07:32 11/25/24 07:13 21 11/25/24 03:56 11/24/24 23:09 11/24/24 20:01 PG Care Time/CCT Total # of Minutes Spent Total Time Spent with Patient: Total time spent is greater than 50% in coordination of care (as documented) at patient's floor/unit and/or counseling patient: Coding Level of Care Code 56366 Post Operative Follow-Up Diagnoses SBO (small bowel obstruction) K56.609
[2024-11-25] MEDS: SERTRALINE HCL 50 MG TABLET PO SCH (09:50)
[2024-11-25] MEDS: FENOFIBRATE NANOCRYSTALLIZED 145 MG TABLET PO SCH (09:50)
[2024-11-25] MEDS: FAMOTIDINE 40 MG TABLET PO SCH (09:50)
[2024-11-25] MEDS: risperiDONE 0.25 MG TAB PO SCH (09:51)
--- NOTE | 2024-11-25 10:40 | Hospitalist Progress Note ---
Date of Service November 25, 2024 Assessment & Plan (1) Small bowel obstruction: (2) Urinary symptom or sign: (3) Sepsis: (4) Hypoxia: (5) ROQUE (acute kidney injury): (6) Elevated troponin: (7) Elevated LFTs: (8) Seizures: (9) Chronic kidney disease: (10) Undifferentiated schizophrenia: (11) Autism: (12) Hypothyroidism (acquired): (13) Seizure: (14) Hypocalcemia: (15) Superficial venous thrombosis of arm: (16) Superficial venous thrombosis of both arms: Plan 64 yo male with with PMH of autism, schizophrenia, non verbal status, seizure disorder, hypothyroidism, HLD, GERD and CKD who had exploratory laparotomy for foreign body in ileum on 11/15/2024. 10th POD and stable, #S/P Laparotomy for SBO d/t foreign body: 11/15/2024 10th POD Doing well Low fiber diet. Stable electrolytes Continue chest percussion therapy. Hypertonic saline Nebu BID. Continue all home PO meds Pain mgmt: Tylenol PO PRN. Dilaudid stopped. Change Zosyn to Augmentin. #Superficial Venous thrombosis in BL arm - Conservative management with warm compression now. - Pt already on prophylactic Lovenox. No DVT on Doppler. #ROQUE on CKD ROQUE Improved #Deranged LFT/ PT INR Improving #Seizure disorder No recent seizure. Home med resumed, #Anxiety and mood disorder Stable, home med resumed #h/o high dose clonazepam use 1 mg Clonazepam QID resumed. Stop lorazepam. #Hypothyroidism: TSH: 1.6(Mar 2024) Resume home synthroid. DVT ppx: Lovenox 40, OOB now, PT ongoing. Dispo: Ready for DC.Updated caregiver Hernan. Ready for tomorrow as she needs some time for set up. Wants to make sure patient can do stairs too, he lives in 2nd floor. Admission and Anticipated Discharge Date Admission Date: November 15, 2024 Supervising Physician Co-Signing Physician Notes I personally examined the patient and verified all [place] points of history and exam, discussed case, and agree with decision making with Dr Rosemary Vazquez meaningful HPI review of systems obtainable from patient, however, again he is bright, makes eye contact, and shakes my hand both whenever I enter the room and when I am leaving. Appears to be tolerating diet well. Vitals noted, in general he is awake and alert pleasant no distress. HEENT normocephalic atraumatic mucous membranes moist. Abdomen soft Very mildly distended nontender no masses or organomegaly, incision is dressed. SBO with severe sepsis present on admissionstatus post laparotomy and bowel resection. Slowly doing better. Serial exams, continue Zosyn. Inflammatory markers are a bit nonspecific, but improving, and his overall presentation is reassuring. Switch to p.o. antibiotics. Regular diet. Home once his caregivers are able to take care of him (it sounds like he needs to be on to navigate stairs, and otherwise he would probably be safe/stable for return to home) Subjective Remains stable and non vocal. Looks comfortable. Having BM regular. No cough, fever. Review of Systems Review of Systems: As per HPI Physical Exam Physical Exam: Constitutional: Remains non verbal, pleasant looking, No acute distress HEENT: Atraumatic, Normocephalic, No conjunctival injection CVS: S1 S2 no murmur, Regular Rhythm, no LE edema Respiratory: BL equal air entry. No rhonchi, wheezes, or crackles. No increased work of breathing GI: Soft, Nondistended, Nontender, midline incision site dry, with jimy intact, no drainage on pressure, no swelling or redness, Normal Bowel sounds noted. MSK: No gross deformities noted Skin: Warm, Dry, BL DVT arm much improved. Neuro: No Focal deficit Results & Data Results & Data Vital Signs (Past 12 Hours) Vital Signs Temp Pulse Resp BP BP Pulse Ox O2 Del Method 11/25/24 07:32 36.9 C 99 H 18 130/76 100 Nebulizer 11/25/24 07:13 101 H 19 96 Room Air 11/25/24 03:56 36.7 C 89 18 101/71 95 Room Air 11/24/24 23:09 37.1 C 101 H 18 122/81 95 Room Air FiO2 11/25/24 07:32 11/25/24 07:13 21 11/25/24 03:56 11/24/24 23:09 Resident Activity Tracking Resident Involvement: Resident Care Provided Care Provided: Adult Hospital Medicine (9) Chronic kidney disease Chronic kidney disease stage: unspecified stage Qualified Code(s): N18.9 - Chronic kidney disease, unspecified
[2024-11-25] MEDS ORDERED: Nursing to Pharmacy Communication SCH (12:15)
--- NOTE | 2024-11-25 16:05 | Billing Data ---
Date of Service November 25, 2024 Coding Level of Care Code 51888 SUB INP/OBS CARE
[2024-11-25] MEDS: AMOXICILLIN/CLAVULANATE 875 MG TAB PO SCH (17:59)
[2024-11-26 07:11] LABS: Anion Gap 6.0 (3-11); Calcium 8.4 mg/dl (8.6-10.3); Carbon Dioxide 21.0 mmol/L (21-32); Chloride 111.0 mmol/L (98-107); Potassium 4.6 mmol/L (3.5-5.1); Sodium 138.0 mmol/L (136-145)
[2024-11-26 07:17] LABS: Blood Urea Nitrogen 18.0 mg/dl (6-23); Creatinine Clr Calc Pharmacy 91.4 ml/min; Glucose 97.0 mg/dl (70-99(Fasting))
[2024-11-26 08:08] VITALS: RESP 18; TEMP 97.3
--- NOTE | 2024-11-26 08:45 | Surgery Progress Note ---
Date of Service November 26, 2024 Assessment & Plan (1) SBO (small bowel obstruction): Plan POD#11 s/p Exploratory Laparotomy, small bowel resection, and anastomosis Vitals are stable and patient afebrile His abdomen is soft, non distended, and incision c/d/i; can leave open to air He is tolerating a low fiber diet and has been having + bowel function Do not see need for further abx upon discharge, from our standpoint could be discharged pending medical clearance Needs jimy removed in 4-7 days, follow up in office early next week Admission and Anticipated Discharge Date Admission Date: November 15, 2024 Subjective Patient is non verbal. He is awake and pleasant appearing. ate all of his bfast. Physical Exam Physical Exam: awake, appears in no distress Gastrointestinal (Abdomen): Inspection/Auscultation: + abdominal surgical incision (c/d/i with midline jimy, no signs of infection); abdomen not distended Percussion/Palpation: abdomen soft; abdomen nontender (appears non tender) Results & Data Vital Signs (Past 12 Hours) Vital Signs Temp Pulse Resp BP BP Pulse Ox O2 Del Method 11/26/24 07:48 97.3 F L 99 H 18 122/75 98 Room Air 11/25/24 22:42 97.7 F 98 H 16 126/79 95 Room Air PG Care Time/CCT Total # of Minutes Spent Total Time Spent with Patient: Total time spent is greater than 50% in coordination of care (as documented) at patient's floor/unit and/or counseling patient: Coding Level of Care Code 86742 Post Operative Follow-Up Diagnoses SBO (small bowel obstruction) K56.609
[2024-11-26 08:56] VITALS: O2SAT 96
--- NOTE | 2024-11-26 09:37 | Discharge Summary ---
Date of Service November 26, 2024 Admission HPI Per Admitting Provider Pt is a 64 yo male with with PMH of autism, schizophrenia, seizure disorder, hypothyroidism, HLD, GERD and CKD who presented to ED to 4 day history of vomiting presents with his caregiver, Kai. Pt is relatively nonverbal, and history is obtained from caregiver. She reports pt started with vomiting on 11/12. Pt continued to eat as normal, however, caregivers tried to adjust his diet to be more of a BRAT diet. Pt continued with green emesis and started to notes dark urine and increased abdominal discomfort. He was taken to urgent care and found to have a UTI. Pt was started on oral antibiotics and caregivers were instructed to watch out for fever. Pt started with diaphoresis and shaking this morning. Attempted to take pt's temperature, but it did not register as fever. Caregiver decided to bring pt to ED. Pt takes himself to bathroom for bowel movements, but does not perform toileting hygiene very well. He uses adult briefs, which reportedly had BM stain yesterday. Unknown if patient has had BM since then. Caregiver denies signs of bloody stool or rich rectal bleeding. Caregiver denies recent cough, congestion, SOB, diarrhea, open wounds, or rashes. No known allergies. Admission Exam Per Admitting Provider Gen: Laying in david, appears in discomfort, but does not verbalize pain HENT: Normocephalic, atraumatic. External ear without deformities. Trachea midline, no thyromegaly Cardio: RRR, tachycardiac, no murmurs or clicks. Resp: Oxymask at 10L, CTAB, tachypnea, Equal bilateral chest rise. GI: Distended, firm, tender, unable to note bowel sounds MSK: Moving all 4 extremities independently Skin: Dry, of normal skin tone, 1-2 cm scab noted at right anterior knee Neuro: Alert and oriented to self. Pt with mild groaning with palpation over abdomen. Principal Diagnosis S/P laparotomy, resection anastomosis Discharge Exam Constitutional: Remains non verbal, pleasant looking, No acute distress HEENT: Atraumatic, Normocephalic, No conjunctival injection CVS: S1 S2 no murmur, Regular Rhythm, no LE edema Respiratory: BL equal air entry. No rhonchi, wheezes, or crackles. No increased work of breathing GI: Soft, Nondistended, Nontender, midline incision site dry, with jennifer intact, no drainage on pressure, no swelling or redness, Normal Bowel sounds noted. MSK: No gross deformities noted Skin: Warm, Dry, BL DVT arm much improved. Neuro: No Focal deficit Discharge Data Allergies Allergy/AdvReac Type Severity Reaction Status Date / Time No Known Allergies Allergy Verified 11/14/24 09:50 Consultations 11/15/24 11:39 Consult General Surgery Stat 11/15/24 11:40 ED Decision to Admit Stat 11/15/24 15:46 Consult Second Baker Routine Procedures Performed Operation Date: 11/15/24 12:45 Actual Procedures p Exploratory Laparotomy, small bowel resection and anastamosis(Not Applicable) - Wesley Stewart MD Ordered Studies 11/15/24 09:36 CT abd pelvis wo con Stat CT head/brain wo con Stat 11/22/24 US venous doppler UE BI Routine 11/22/24 11:40 CT Abd and Pelvis [CT abd pelvis oral and IV con] Stat Hospital Course (1) Small bowel obstruction: (2) Urinary symptom or sign: (3) Sepsis: (4) Hypoxia: (5) ROQUE (acute kidney injury): (6) Elevated troponin: (7) Elevated LFTs: (8) Seizures: (9) Chronic kidney disease: (10) Undifferentiated schizophrenia: (11) Autism: (12) Hypothyroidism (acquired): (13) Seizure: (14) Hypocalcemia: (15) Superficial venous thrombosis of arm: (16) Superficial venous thrombosis of both arms: Plan 64 yo male with with PMH of autism, schizophrenia, non verbal status, seizure disorder, hypothyroidism, HLD, GERD and CKD who had exploratory laparotomy for foreign body in ileum on 11/15/2024. #S/P Laparotomy, resection, anastosis of illem for SBO d/t foreign body: 11/15/2024 - Presented in sepsis, steady post op recovery. - Cefdinir for total 7 days. Completed rocephin and metronidazole for 7 days in hospital. - Jennifer removal after 2 weeks of surgery #Other chronic conditions: STABLE No change in home med. Total Time Total Time Spent Total Time Spent (In Minutes): <30 Discharge Plan Discharge Items Patient Disposition: Home - Self-Care Reason For Visit: HYPOXIA, SBO, S/P EX LAP Discharge Diagnosis: exploratory laparotomy small bowel resection with anastomosis Condition on Discharge: Good Activity: Per Instructions section Lifting: No more than 10 pounds Bathing Comment: may shower; no soaking in tubs/pools x 2 weeks Exercise/Sports: Wait until after follow-up appointment Driving/Machine Use: no driving if taking narotics for pain Non-emergency contact: Primary Care Provider and Surgeon Call non-emergency contact if: you have any medication questions, your pain is not controlled, you have a fever, your temperature is above 101.5, your wound has increased redness, your wound has increased drainage and your wound pain has increased Follow-up/Referrals: Katherine Walls MD [Primary Care Provider] - 12/07/24 11:30 am Wesley Stewart MD [Surgeon] - 12/03/24 11:00 am (Call to schedule follow up with the surgeon in 1 week for check up and jennifer removal) Diet: Low Fiber Addtl Attending Provider Instructions: SPECIAL CARE INSTRUCTIONS: * You have surgical jennifer in your midline incision that will need to be removed about 14 days from your surgical procedure. You may follow up in [facility] office around that time for check up and removal. You may leave incision open to air if it is not draining any fluid. * You may shower . NO soaking in pools or baths for 2 weeks * No lifting greater than 10lbs. No strenuous exercise until cleared by surgeon. Light walking is accepted. * No driving while taking narcotic pain medication; wait at least 3 days * No drinking alcohol while taking narcotic pain medication * May use Ibuprofen/Tylenol over the counter for pain as tolerated. Do not exceed 3grams of Tylenol per 24 hours * Expect some swelling and bruising. * Diet- you may resume your regular diet Call your doctor if: * Temperature above 101 degrees, nausea/vomiting, fever/chills * Pain not relieved by pain medicine ordered * There is increased drainage or redness from any incision * You have any unanswered questions or concerns [phone]. FOLLOW UP VISIT: If not already scheduled, please call the office for a follow-up visit. Office Addtl Soap Chipper Provider Instructions: Eliel Cedeno were admitted to the hospital for sepsis with peritonitis due to bowel perforation with foreign body ( bouncy ball) in there. Colorectal surgery operated on 11/15/2024, the same day he came to hospital. They performed emergency exploratory laparotomy with resection anastomosis of small bowel. The resected segment was examined in microscope( histopathology report), which showed no unsual changes except from inflammations as expected in foreign body impaction and perforation. Recovery was quite longer, yet slow and steady. He was taken care by primary care team as well as colorectal surgery team. Physical therapy and occupational therapy team also evaluated him and clear for discharge to home. They made sure he can do stairs before going home. Post- operative instructions are above as per surgery team. Please follow as above. - Stapler removal in 2 weeks of surgery( week of Nov) - Tylenol/ Motrin for pain; less likely to need anymore as he is already 11th Post op day and pain during discharge was pretty controlled with Tylenol when needed. A discharge summary will be sent to your primary care physician to ensure continuity of care. Please bring this discharge summary with you to your next office appointment so that your provider can review it at that time. Medications: Your medication list has been reviewed and reconciled upon discharge to ensure accuracy and continuity of care. An updated list of all your medications is included with your hospital discharge paperwork. Please review this list closely and make note of any changes to your medications. 1. Augmentin 2. Resume all his home medications. Follow up appointments: - Make a follow up appointment with your PCP within the next week. It is very important that you follow up with them shortly after discharge from the hospital. - Keep all of your follow up appointments as already scheduled. If you cannot make an appointment, notify your provider. CONTACT YOUR PRIMARY CARE PROVIDER if you experience any of the following: - Difficulty following your treatment plan - Difficulty taking any of your medications CALL 911 OR GO TO THE EMERGENCY DEPARTMENT if you experience any of the following: - Fever > 101, vomiting, fainting. - Sudden, severe abdominal pain or nausea/vomiting - Severe chest pain or chest pain that radiates to your jaw or arm - Sudden, severe shortness of breath or difficulty breathing Pending Studies at Discharge: Yes Studies:: surgical pathology : inflammatory changes, no e/o tumor Stand-Alone Forms: [employer], Work/School Release, Smoking Cessation Medications and DC Order Prescriptions: New amoxicillin-pot clavulanate 875-125 mg tablet 1 tab PO BID 4 Days Qty: 7 0RF acetaminophen 650 mg tablet extended release 650 mg PO Q8H PRN (Reason: pain) Qty: 10 0RF Continued fenofibrate 160 mg tablet 160 mg PO QAM Qty: 90 3RF Rx Instructions: Take 1 tablet daily every a.m. for Hyperlipidemia mirtazapine 45 mg tablet 45 mg PO HS Qty: 90 3RF Rx Instructions: Take 1 tablet daily at bedtime for Mood Disorder ngulwqxk-ruqu-[id number]-calcium-mins 9 mg iron-400 mcg tablet 1 tab PO QAM Qty: 90 3RF Rx Instructions: Take 1 tablet daily every a.m. for Health Maintenance risperidone 0.25 mg tablet 0.25 mg PO QAM Qty: 90 1RF Rx Instructions: Take 1 tablet daily in a.m. for Schizophrenia hydroxyzine pamoate 50 mg capsule 50 mg PO TID Qty: 270 1RF Rx Instructions: Take 1 capsule TID for Anxiety risperidone [Risperdal] 1 mg tablet 1 mg PO HS Qty: 90 1RF Rx Instructions: Take 1 tablet daily at bedtime for Schizophrenia famotidine 40 mg tablet 40 mg PO QAM Qty: 90 1RF Rx Instructions: Take 1 tablet daily every a.m. for GERD sertraline 50 mg tablet 50 mg PO QAM Qty: 90 1RF Rx Instructions: Take 1 tablet daily in a.m. for Mood Disorder and Anxiety phenytoin sodium extended 100 mg capsule 200 mg PO BID Qty: 360 1RF Rx Instructions: Take 2 capsules BID for Epilepsy propranolol 20 mg tablet 20 mg PO TID Qty: 270 1RF Rx Instructions: Take 1 tablet TID for Epilepsy levothyroxine [Synthroid] 50 mcg tablet 50 mcg PO QAM Qty: 90 1RF Rx Instructions: Take 1 tablet daily every a.m. Hypothyroid clonazepam 1 mg tablet 1 mg PO QID Qty: 112 0RF Rx Instructions: Take 1 tablet QID for Anxiety cholecalciferol (vitamin D3) 50 mcg (2,000 unit) capsule 50 mcg PO DAILY Qty: 90 3RF (DME) diaper,brief,adult,disposable Misc See Rx Instructions .Route Qty: 100 3RF Rx Instructions: USE DAILY Discontinued cephalexin 500 mg capsule 500 mg PO TID 7 Days Qty: 21 0RF Discharge Orders: Discharge Order (Routine); Ordered 11/26/24 Ordered By: Manuela Perez/Other Patient Handouts: Low-Fiber Diet Admission Data Admit Date/Time: 11/15/24 15:46 Attending Provider: César Diaz Admit Provider: Juliane Mtaias Primary Care Provider: Katherine Walls Other Providers: Wesley Stewart; Yfn Barlow; Gilmar Bowling Other Interventions: Discharge Summary Assessment (RN) Last Done: 11/26/24 13:43 Supervising Physician Co-Signing Physician Notes I personally examined the patient and verified all [place] points of history and exam, discussed case, and agree with decision making with Dr Riley No meaningful HPI review of systems obtainable from patient, however, again he is bright, makes eye contact, and shakes my hand both whenever I enter the room and when I am leaving. Again appears to be tolerating diet well. Vitals noted, in general he is awake and alert pleasant no distress. HEENT normocephalic atraumatic mucous membranes moist. Abdomen soft Very mildly distended nontender no masses or organomegaly, incision is dressed. SBO with severe sepsis present on admissionstatus post laparotomy and bowel resection. Doing better. Safe/stable for home on oral antibiotics. Outpatient follow-up. Otherwise as above.
[2024-11-26 12:33] VITALS: BP 126/79; PULSE 97
--- NOTE | 2024-11-26 17:07 | Billing Data ---
Date of Service November 26, 2024 Coding Level of Care Code 09261 IN/OBS DISCH 30 MIN/LESS
--- NOTE | 2024-11-26 17:08 | Billing Data ---
Date of Service November 26, 2024 Coding Level of Care Code 48241 IN/OBS DISCH 30 MIN/LESS
== END 2024-11-26 15:13 | disposition home or self-care (01) | DRG 853 ==
LOC: ED 09:05 → OR 12:57 → 1E 12:57 → SUATTDRO 15:46 → 2S 11-17 14:35 → 3E 11-25 22:40